=== PATIENT | male | born 1950 | race African-American/Black ===

== ENCOUNTER 2016-12-02 07:53 | Inpatient (IN) | payer OTHER ==
[2016-12-02 07:56] VITALS: BMI 27.0
--- NOTE | 2016-12-02 08:04 | PDOC ---
History of Present Illness <Damian Coreas - Last Filed: 12/02/16 10:29> - General History Source: Patient Exam Limitations: No Limitations - History of Present Illness Initial Comments: 12/02/16 08:05 The patient is a 66-year-old man, accompanied by , with a significant past medical history of hypertension and bladder Ca who presents to the emergency department via EMS for further evaluation of hematuria. He underwent a cystoscopy for in May- no chemotherapy/radiation since. He admits that he has been experiencing intermittent episodes of hematuria since August. His episodes are described as noted light pink urine without clots. However, over the past 3 weeks, he notes that his hematuria has worsen as it has become heavier,with noted dark urine and clots. He also notes that his symptoms are associated with headaches and lightheadedness and chills. He also notes that his lightheadedness is exacerbated on exertion (when walking). He denies fever, cough, shortness of breath , chest pain, palpitations, neck pain, leg pain, abdominal pain, nausea, vomiting, diarrhea, dysuria, flank pain, urinary hesitancy, urgency, frequency, penile discharge, testicular pain. He has a surgery scheduled for 12/04/[address] Harmon for tumor removal of his appendix and small bowel. Allergies: No Known Drug Allergies Past Surgical History: Cystoscopy- 05/31. 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 Social History: No tobacco, ETOH and recreational drug use. Primary Care Physician: Dr. Mehdi Alonso [phone] Sales And Service Technician: Dr. Roberto Patel [phone] Urologist: Dr. Kp Burks [phone] General Surgeon: Dr. Duy Harmon [phone] <Yani London - Last Filed: 12/02/16 11:30> - General Chief Complaint: Hematuria Stated Complaint: hematuria Time Seen by Provider: 12/02/16 08:00 Past History - Past Medical History Anemia: No Asthma: No Cancer: No Cardiac Disorders: No CVA: No COPD: No CHF: No Dementia: No Diabetes: No GI Disorders: No Disorders: No HTN: Yes Hypercholesterolemia: No Liver Disease: No Seizures: No Thyroid Disease: No - Surgical History Abdominal Surgery: No Appendectomy: No Cardiac Surgery: No Cholecystectomy: No Lung Surgery: No Neurologic Surgery: No Orthopedic Surgery: No - Psycho/Social/Smoking Cessation Hx Anxiety: No Suicidal Ideation: No Smoking History: Never smoked Have you smoked in the past 12 months: No Information on smoking cessation initiated: No Hx Alcohol Use: No Drug/Substance Use Hx: No Substance Use Type: None Hx Substance Use Treatment: No <Damian Coreas - Last Filed: 12/02/16 10:29> <Yain London - Last Filed: 12/02/16 11:30> - Past Medical History Allergies/Adverse Reactions: Allergies Allergy/AdvReac Type Severity Reaction Status Date / Time No Known Drug Allergies Allergy Verified 12/02/16 07:54 Home Medications: Ambulatory Orders Amlodipine Besylate/Benazepril [Lotrel 10-20 mg Capsule] 1 cap PO DAILY Review of Systems - Review of Systems Constitutional: Yes: Chills, Weight Stable. No: Fever HEENTM: No: Throat Pain Respiratory: No: Cough, Shortness of Breath Cardiac (ROS): Yes: Lightheadedness. No: Chest Pain, Edema, Syncope ABD/GI: No: Diarrhea, Vomiting : Yes: Hematuria All Other Systems: Reviewed and Negative <Damian Coreas - Last Filed: 12/02/16 10:29> *Physical Exam - Vital Signs Last Vital Signs Temp Pulse Resp BP Pulse Ox 98.4 F 102 H 20 147/83 100 12/02/16 07:54 12/02/16 07:54 12/02/16 07:54 12/02/16 07:54 12/02/16 07:54 <Damian Coreas - Last Filed: 12/02/16 10:29> - Vital Signs Last Vital Signs Temp Pulse Resp BP Pulse Ox 98.4 F 102 H 20 147/83 100 12/02/16 07:54 12/02/16 07:54 12/02/16 07:54 12/02/16 07:54 12/02/16 07:54 - Physical Exam Comments: 12/02/16 08:05 GENERAL: The patient is awake, alert, and fully oriented, in no acute distress. HEAD: Normal with no signs of trauma. EYES: Pupils equal, round and reactive to light, extraocular movements intact, sclera anicteric, + conjunctiva pallor ENT: Ears normal, nares patent, oropharynx clear without exudates. Moist mucous membranes. NECK: Normal range of motion, supple without lymphadenopathy, JVD, or masses. LUNGS: Breath sounds equal, clear to auscultation bilaterally. No wheeze/ crackles. HEART: Regular rate and rhythm, normal S1 and S2 without murmur or rub. ABDOMEN: Soft. Nontender. Slight bladder distention but no discomfort. BS wnl. No guarding or rebound. No palpable masses. No hepatosplenomegaly. EXTREMITIES: Normal range of motion, no edema. No clubbing or cyanosis. No cords, erythema, or tenderness. NEUROLOGICAL: Cranial nerves II through XII grossly intact. Normal speech. PSYCH: Normal mood, normal affect. SKIN: Warm, Dry, normal turgor, no rashes or lesions noted. <Yani London - Last Filed: 12/02/16 11:30> Heart Score/ECG Review #1 ECG reviewed & interpreted by me at: 08:39 General ECG Interpretation: Sinus Rhythm, Normal Rate (87), Normal Intervals ( qtc 440), No acute ischemic changes Compared to previous ECG there are: No significant change (07/30/09) <Damian Coreas - Last Filed: 12/02/16 10:29> ED Treatment Course - LABORATORY CBC & Chemistry Diagram: 12/02/16 08:22 12/02/16 08:22 <Damian Coreas - Last Filed: 12/02/16 10:29> - LABORATORY CBC & Chemistry Diagram: 12/02/16 08:22 12/02/16 08:22 <Yani London - Last Filed: 12/02/16 11:30> Medical Decision Making - Medical Decision Making 12/02/16 08:40 A portion of this note was documented by scribe services under my direction. I have reviewed the details of the note, within reason, and agree with the documentation with the following case summary and management plan written by me. 66-year-old male with history of bladder CA status post resection 05/31, appendiceal CA awaiting operative removal scheduled in 2 days, now presents with worsening gross hematuria over the last few weeks. Patient has had persistent mild hematuria since his surgery, has not had follow-up with his urologist, and comes in now with 2-3 weeks of gross hematuria with clots, frequency, incomplete emptying. Some chills over the last few days, also developing lightheadedness with standing and walking but no syncope or chest pain or shortness of breath. Vital signs as noted. Pale conjunctiva. Abdomen is benign, question slightly distended bladder No CVA tenderness 66-year-old male with known history of bladder CA presents with persistent and worsening gross hematuria, early signs of obstruction but does not appear to be in retention. Potentially anemic, causing his light-headedness, versus progression of underlying neoplasms. labs, ua ivf discuss with Drs. Bettencourt and Faustino 12/02/16 09:20 Severe anemia with hemoglobin of 4.7, creatinine is normal at 1.3, urinalysis with greater than 100 red and white blood cells, white blood cell count normal. Will begin transfusion, admit for further care. 12/02/16 10:29 Accepted for inpatient med/surg by Dr. Middleton. Dr. Mireles consulted. <Damian Coreas - Last Filed: 12/02/16 10:29> - Medical Decision Making 12/02/16 09:[address] Mehdi Alonso. Informed that Dr. Milly Middleton is covering and is inhouse. Overhead paged Dr. Middleton. 12/02/16 10:[address] Milly Middleton. Immediate response. Case was discussed. 12/02/16 10:[address] Kp Burks. <Yani London - Last Filed: 12/02/16 11:30> *DC/Admit/Observation/Transfer - Discharge Dispostion Admit: Yes <Damian Coreas - Last Filed: 12/02/16 10:29> - Attestations Scribe Attestion: 12/02/16 08:06 Documentation prepared by Yani London, acting as veterinary medical officer for Damian Coreas MD. <Yani London - Last Filed: 12/02/16 11:30> Diagnosis at time of Disposition: Gross hematuria Bladder cancer Qualifiers: Bladder location: unspecified site Qualified Code(s): C67.9 - Malignant neoplasm of bladder, unspecified Anemia Qualifiers: Anemia type: unspecified type Qualified Code(s): D64.9 - Anemia, unspecified - Discharge Dispostion Condition at time of disposition: Fair - Referrals
[2016-12-02 08:41] LABS: PH,URINE 6.5 (5.0-8.0); URINE APPEARANCE CLEAR; URINE BILIRUBIN NEGATIVE (NEGATIVE); URINE COLOR DK. RED; URINE GLUCOSE (UA) 2+ (NEGATIVE); URINE KETONE 1+ (NEGATIVE); URINE UROBILINOGEN >=8.0 E.U./dl E.U./dl (0.2-1.0)
[2016-12-02 08:47] LABS: BASOPHIL 0.7 % (0-2.0); EOSINOPHIL 0.1 % (0-4.5); MCH 24.4 pg (25.7-33.7); MCHC 33.5 g/dl (32.0-35.9); MEAN CELL VOLUME 72.8 fl (80-96); MEAN PLT VOLUME 6.8 fl (7.5-11.1); NEUTROPHILS 66.8 % (42.8-82.8); PLATELET COUNT 330 K/MM3 (134-434); RDW 18.1 % (11.9-15.9); WHITE BLOOD COUNT 8.7 K/mm3 (4.0-10.0)
[2016-12-02 09:03] LABS: URINE BLOOD 3+ (NEGATIVE); URINE LEUK ESTERASE 2+ (NEGATIVE); URINE NITRITE POSITIVE (NEGATIVE); URINE PROTEIN 3+ (NEGATIVE)
[2016-12-02 09:04] LABS: GRANULAR CASTS FEW /lpf; URINE RBC >100 /hpf (0-3); URINE WBC >100 /hpf (3-5)
[2016-12-02 09:07] LABS: ALBUMIN 3.5 g/dl (3.4-5.0); BILIRUBIN,TOTAL 0.2 mg/dL (0.2-1.0); COCKROFT - GAULT 74.5; CREATININE 1.3 mg/dL (0.7-1.3); TOT PROT 6.3 g/dl (6.4-8.2)
[2016-12-02 09:43] LABS: INR 0.98 (0.82-1.09); PROTHROMBIN TIME (PATIENT) 10.8 SEC (9.98-11.88)
--- NOTE | 2016-12-02 10:26 | HP ---
Admitting History and Physical - Primary Care Physician PCP: Mehdi Alonso - Admission Chief Complaint: hematuria History of Present Illness: ER HISTORY - History of Present Illness Initial Comments: 12/02/16 08:05 The patient is a 66-year-old man, accompanied by , with a significant past medical history of hypertension and bladder Ca who presents to the emergency department via EMS for further evaluation of hematuria. He underwent a cystoscopy for in May- no chemotherapy/radiation since. He admits that he has been experiencing intermittent episodes of hematuria since August. His episodes are described as noted light pink urine without clots. However, over the past 3 weeks, he notes that his hematuria has worsen as it has become heavier,with noted dark urine and clots. He also notes that his symptoms are associated with headaches and lightheadedness and chills. He also notes that his lightheadedness is exacerbated on exertion (when walking). He denies fever, cough, shortness of breath , chest pain, palpitations, neck pain, leg pain, abdominal pain, nausea, vomiting, diarrhea, dysuria, flank pain, urinary hesitancy, urgency, frequency, penile discharge, testicular pain. He has a surgery scheduled for 12/04/[address] Harmon for tumor removal of his appendix and small bowel. Allergies: No Known Drug Allergies Past Surgical History: Cystoscopy- 05/31. 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 Social History: No tobacco, ETOH and recreational drug use. Primary Care Physician: Dr. Mehdi Alonso [phone] Cement Mixer Driver: Dr. Roberto Patel [phone] Urologist: Dr. Kp Burks [phone] General Surgeon: Dr. Duy Harmon [phone] PT SEEN BY ME IN ER He has been having gross hematuria for about 2 weeks now and did not inform his urologist as he was busy getting pre- operative testing and CT scans for appendiceal CA which was discovered recently. He was scheduled for surgery the end of this week with Dr Harmon. Pt came to ER today morning feeling dizzy and had palpitations.He denies ASA or NSAIDS His says that he has been passing clots in the urine, denies any abdominal pain . History Source: Patient, Family Member Limitations to Obtaining History: No Limitations - Past Medical History Cardiovascular: Yes: HTN Gastrointestinal: Yes: Other (high grade dysplasia appendix) Renal/: Yes: BPH, Cancer, Hematuria - Smoking History Smoking history: Never smoked Have you smoked in the past 12 months: No - Alcohol/Substance Use Hx Alcohol Use: No Home Medications - Allergies Allergies/Adverse Reactions: Allergies Allergy/AdvReac Type Severity Reaction Status Date / Time No Known Drug Allergies Allergy Verified 12/02/16 07:54 - Home Medications Home Medications: Ambulatory Orders Amlodipine Besylate/Benazepril [Lotrel 10-20 mg Capsule] 1 cap PO DAILY Review of Systems - Review of Systems Constitutional: reports: Weakness. denies: Chills, Fever, Loss of Appetite Cardiovascular: reports: Palpitations, Shortness of Breath. denies: Chest Pain Genitourinary: reports: Hematuria. denies: Burning, Discharge, Frequency Physical Examination Vital Signs: Vital Signs Temperature 98.4 F 12/02/16 07:54 Pulse Rate 102 H 12/02/16 07:54 Respiratory Rate 20 12/02/16 07:54 Blood Pressure 147/83 12/02/16 07:54 O2 Sat by Pulse Oximetry (%) 100 12/02/16 07:54 Constitutional: Yes: No Distress, Calm, Pallor Cardiovascular: Yes: Regular Rate and Rhythm, Tachycardia Respiratory: Yes: CTA Bilaterally Gastrointestinal: Yes: Normal Bowel Sounds, Soft, Abdomen, Obese. No: Distention, Tenderness Edema: No Psychiatric: Yes: WNL Labs: CBC, BMP 12/02/16 08:22 12/02/16 08:22 Imaging - Results EKG: Report Reviewed (NSR) Problem List - Problems (1) Anemia Code(s): D64.9 - ANEMIA, UNSPECIFIED Qualifiers: Anemia type: unspecified type Qualified Code(s): D64.9 - Anemia, unspecified (2) Bladder cancer Code(s): C67.9 - MALIGNANT NEOPLASM OF BLADDER, UNSPECIFIED Qualifiers: Bladder location: unspecified site Qualified Code(s): C67.9 - Malignant neoplasm of bladder, unspecified (3) Gross hematuria Code(s): R31.0 - GROSS HEMATURIA (4) HTN (hypertension) Code(s): I10 - ESSENTIAL (PRIMARY) HYPERTENSION (5) Hematuria Code(s): R31.9 - HEMATURIA, UNSPECIFIED Assessment/Plan PLAN -- pt refusing del valle or CBI -- transfuse PRBC -- hold BP meds -- Urology and Surgery evaluation -- repeat CBC today after transfusion -- monitor vitals and CBC -- gentle iv fluids
[2016-12-02 11:26] LABS: HYPOCHROMIA 3+; MICROCYTOSIS 2+; POLYCHROMASIA 2+; TARGET CELLS 1+
--- NOTE | 2016-12-02 13:18 | EKG ---
Test Reason : Blood Pressure : / mmHG Vent. Rate : 087 BPM Atrial Rate : 087 BPM P-R Int : 154 ms QRS Dur : 106 ms QT Int : 366 ms P-R-T Axes : 067 056 057 degrees QTc Int : 440 ms NORMAL SINUS RHYTHM NORMAL ECG WHEN COMPARED WITH ECG OF 30-JUL-2009 08:47, T WAVE INVERSION NO LONGER EVIDENT IN LATERAL LEADS Confirmed by ANTON VALVERDE, JOSEPH ([id number]) on 12/02/2016 1:17:53 PM Referred By: Confirmed By:JOSEPH WALTON MD
[2016-12-02] MEDS: SODIUM CHLORIDE 1,000 ML IV SCH ×2 (17:12→21:39)
[2016-12-03 00:03] LABS: MCH 25.7 pg (25.7-33.7); MCHC 33.9 g/dl (32.0-35.9); MEAN CELL VOLUME 75.7 fl (80-96); MEAN PLT VOLUME 7.3 fl (7.5-11.1); PLATELET COUNT 314 K/MM3 (134-434); RDW 17.9 % (11.9-15.9); WHITE BLOOD COUNT 12.5 K/mm3 (4.0-10.0)
[2016-12-03 08:53] LABS: MCH 26.7 pg (25.7-33.7); MCHC 34.7 g/dl (32.0-35.9); MEAN PLT VOLUME 7.1 fl (7.5-11.1); PLATELET COUNT 288 K/MM3 (134-434)
--- NOTE | 2016-12-03 09:34 | CON.GU ---
Consult - History of Present Illness History of Present Illness: 66 yo male with h/o bladder CA, s/p TURBT in May 2016, never followed up with Dr Burks thereafter. Now admitted with worsening gross heme with clots and anemia. No fever, chills, or flank pain - Past Medical History Cardio/Vascular: Yes: HTN Gastrointestinal: Yes: Other (high grade dysplasia appendix) Renal/: Yes: BPH, Cancer, Hematuria - Alcohol/Substance Use Hx Alcohol Use: No - Smoking History Smoking history: Never smoked Have you smoked in the past 12 months: No Home Medications - Allergies Allergies/Adverse Reactions: Allergies Allergy/AdvReac Type Severity Reaction Status Date / Time No Known Drug Allergies Allergy Verified 12/02/16 07:54 - Home Medications Home Medications: Ambulatory Orders Amlodipine Besylate/Benazepril [Lotrel 10-20 mg Capsule] 1 cap PO DAILY Physical Exam- Vital Signs: Vital Signs Temperature 98.1 F 12/03/16 08:21 Pulse Rate 80 12/03/16 08:21 Respiratory Rate 18 12/03/16 08:21 Blood Pressure 132/71 12/03/16 08:21 O2 Sat by Pulse Oximetry (%) 100 12/03/16 08:32 Renal/: Yes: Hematuria, . No: Bladder Distention, CVA Tenderness - Left, CVA Tenderness - Right, Menses Present, Scrotal Edema, Urethral Discharge , Other Labs: CBC, BMP 12/03/16 07:50 Problem List - Problems (1) Bladder cancer Assessment/Plan: plan for CT scan today. please transfuse as needed to increase HCT, will need cystoscopy/TURBT/fulguration once medically cleared Code(s): C67.9 - MALIGNANT NEOPLASM OF BLADDER, UNSPECIFIED Qualifiers: Bladder location: unspecified site Qualified Code(s): C67.9 - Malignant neoplasm of bladder, unspecified (2) Gross hematuria Code(s): R31.0 - GROSS HEMATURIA
--- NOTE | 2016-12-03 10:53 | PN ---
Progress Note, Physician Chief Complaint: has hematuria- passed a few clots this morning- but he feels better Denies lightheadedness and palpitations No abd pain s/p 3 PRBC - Current Medication List Current Medications: Active Medications Sodium Chloride (Normal Saline -) 1,000 mls @ 75 mls/hr IV ASDIR JAKE Last Admin: 12/02/16 21:39 Dose: 75 mls/hr - Objective Vital Signs: Vital Signs Temperature 98.1 F 12/03/16 08:21 Pulse Rate 80 12/03/16 08:21 Respiratory Rate 18 12/03/16 08:21 Blood Pressure 132/71 12/03/16 08:21 O2 Sat by Pulse Oximetry (%) 100 12/03/16 08:32 Constitutional: Yes: No Distress, Calm, Pallor Cardiovascular: Yes: Regular Rate and Rhythm Respiratory: Yes: CTA Bilaterally Gastrointestinal: Yes: Normal Bowel Sounds, Soft. No: Distention, Tenderness Edema: No Labs: CBC, BMP 12/03/16 07:50 INR, PTT INR 0.98 (0.82-1.09) 12/02/16 08:22 Problem List - Problems (1) Anemia Code(s): D64.9 - ANEMIA, UNSPECIFIED Qualifiers: Anemia type: iron deficiency Qualified Code(s): D64.9 - Anemia, unspecified (2) Bladder cancer Code(s): C67.9 - MALIGNANT NEOPLASM OF BLADDER, UNSPECIFIED Qualifiers: Bladder location: unspecified site Qualified Code(s): C67.9 - Malignant neoplasm of bladder, unspecified (3) Gross hematuria Code(s): R31.0 - GROSS HEMATURIA (4) HTN (hypertension) Code(s): I10 - ESSENTIAL (PRIMARY) HYPERTENSION (5) Hematuria Code(s): R31.9 - HEMATURIA, UNSPECIFIED Assessment/Plan PLAN -- pt refusing del valle or CBI -- transfuse PRBC 2 more today after he goes for CTscan -- holding BP meds -- Urology evaluation noted -- for CT abd/pelvis today -- monitor vitals and CBC -- spoke with DR Harmon-- he will be seeing the pt today. May need to postpone surgery for appendix tomorrow -- I have requested him if it is possible to have both and surgical procedures done in same day -- DVT prophylaxis-- SCD
--- NOTE | 2016-12-03 15:01 | CONSULT ---
Consult Consult Specialty:: Surgery Referred by:: Kane Atkins Reason for Consultation:: Tumor in appendix - History of Present Illness Chief Complaint: Patient is known to have a mass at the appendicular orifice , with atypia. He is scheduled fot palaproscopic right hemicolectomy tomorrow. He is admitted today with progressive hematuria, and multiple bladder tumors. History of Present Illness: Admitted with gross hematuria and anemia, secondary to blood loss. - History Source History Provided By: Patient - Past Medical History Cardio/Vascular: Yes: HTN Gastrointestinal: Yes: Other (high grade dysplasia appendix) Renal/: Yes: BPH, Cancer, Hematuria - Alcohol/Substance Use Hx Alcohol Use: No - Smoking History Smoking history: Never smoked Have you smoked in the past 12 months: No Home Medications - Allergies Allergies/Adverse Reactions: Allergies Allergy/AdvReac Type Severity Reaction Status Date / Time No Known Drug Allergies Allergy Verified 12/02/16 07:54 - Home Medications Home Medications: Ambulatory Orders Amlodipine Besylate/Benazepril [Lotrel 10-20 mg Capsule] 1 cap PO DAILY Physical Exam Vital Signs: Vital Signs Temperature 98.1 F 12/03/16 12:50 Pulse Rate 84 12/03/16 12:50 Respiratory Rate 18 12/03/16 12:50 Blood Pressure 146/80 12/03/16 12:50 O2 Sat by Pulse Oximetry (%) 100 12/03/16 08:32 Labs: CBC, BMP 12/03/16 07:50 Imaging - Results Cat Scan: Report Reviewed, Image Reviewed Problem List - Problems (1) Hematuria Code(s): R31.9 - HEMATURIA, UNSPECIFIED (2) Bladder cancer Code(s): C67.9 - MALIGNANT NEOPLASM OF BLADDER, UNSPECIFIED Qualifiers: Bladder location: overlapping sites Qualified Code(s): C67.8 - Malignant neoplasm of overlapping sites of bladder (3) 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 Dr Masterson plans to do cystoscopy tomorrow, as well. Correct hemoglobin , hematocrit.
[2016-12-04] MEDS: SODIUM CHLORIDE 1,000 ML IV SCH (01:03)
[2016-12-04 07:26] LABS: MCH 27.4 pg (25.7-33.7); MCHC 34.4 g/dl (32.0-35.9); MEAN CELL VOLUME 79.4 fl (80-96); PLATELET COUNT 263 K/MM3 (134-434); RDW 17.8 % (11.9-15.9); WHITE BLOOD COUNT 8.7 K/mm3 (4.0-10.0)
[2016-12-04 07:58] LABS: ANION GAP 10 (8-16); CALCIUM 8.5 mg/dL (8.5-10.1); CO2 24 mmol/L (21-32); GLUCOSE,RANDOM 118 mg/dL (74-106); SGOT/AST 10 U/L (15-37); SGPT/ALT 23 U/L (12-78)
[2016-12-04 08:00] LABS: ALK PHOS 50 U/L (45-117); BILIRUBIN,TOTAL 0.6 mg/dL (0.2-1.0); COCKROFT - GAULT 88.05; CREATININE 1.1 mg/dL (0.7-1.3); TOT PROT 5.5 g/dl (6.4-8.2)
--- NOTE | 2016-12-04 08:29 | PN ---
Progress Note (short form) - Note Progress Note: SUBJECTIVE: Patient seen and examined. Chart reviewed. Patient is anxious about upcoming surgery today. Family at bedside. Denies chest pain or shortness of breath. Continue to have walter hematuria. OBJECTIVE: Vital Signs - 8 hr 12/04/16 05:35 Temperature 98.9 F Pulse Rate 78 Respiratory 20 Rate Blood Pressure 131/80 Intake & Output 12/03/16 12/04/16 12/04/16 23:59 07:59 15:59 Intake Total 850 Output Total 400 850 Balance -400 0 Intake: IV 400 Normal Saline - 1,000 ml 400 @ 75 mls/hr IV ASDIR JAKE Rx#:[id number] IVPB 100 Packed Cells 350 Output: Urine 400 850 Void 400 850 Other: Voiding Method Urinal Urinal # Unmeasured Voids Void 1 Bowel Movement Yes # Bowel Movements 1 Active Medications Sodium Chloride (Normal Saline -) 1,000 mls @ 75 mls/hr IV ASDIR JAKE Last Admin: 12/04/16 01:03 Dose: 75 mls/hr CBC, BMP 12/04/16 06:15 12/04/16 06:15 Laboratory Results - last 24 hr 12/02/16 12/04/16 12/04/16 08:22 06:15 06:15 WBC 8.7 RBC 3.09 L Hgb 8.5 L D Hct 24.5 L D MCV 79.4 L MCHC 34.4 RDW 17.8 H Plt Count 263 MPV 7.0 L Sodium 140 Potassium 4.0 Chloride 106 Carbon Dioxide 24 Anion Gap 10 BUN 12 Creatinine 1.1 Creat Clearance w eGFR > 60 Random Glucose 118 H D Calcium 8.5 Total Bilirubin 0.6 D AST 10 L D ALT 23 Alkaline Phosphatase 50 Total Protein 5.5 L Albumin 3.0 L Blood Type O POSITIVE Antibody Screen Negative Crossmatch See Detail Microbiology 12/02/16 08:22 Urine Culture - Final Urine - Urine Clean Catch NO GROWTH OBTAINED PHYSICAL EXAMINATION: Constitutional: Yes: No Distress, Anxious. Cardiovascular: Yes: Regular Rate and Rhythm Respiratory: Yes: CTA Bilaterally Gastrointestinal: Yes: Normal Bowel Sounds, Soft. No: Distention, Tenderness Edema: No ASSESSMENT & PLAN: - Scheduled for OR today as mentioned above. - Will transfuse another unit. - CT scan noted. - I had an extensive talk with the patient today about the upcoming surgery-- Both cystoscopy as well as right hemicolectomy - Patient agreeable but reluctant. - Patient says he is going to talk with the Surgeons again. - I spoke wit Dr. Mireles as well as with Dr. Harmon also this morning. - All above discussed with nursing staff also. - Patient is medically stable for the proposed procedure. - Will follow. Documentation prepared by Yani London, acting as a medical office supervisor for Mehdi Alonso MD.
[2016-12-04] MEDS ORDERED: ACETAMINOPHEN INJECTION 0 ML IVPB ONE (11:28)
--- NOTE | 2016-12-04 16:50 | PN ---
Progress Note, Physician - Current Medication List Current Medications: Active Medications Sodium Chloride (Normal Saline -) 1,000 mls @ 75 mls/hr IV ASDIR JAKE Last Admin: 12/04/16 01:03 Dose: 75 mls/hr - Objective Vital Signs: Vital Signs Temperature 98.3 F 12/04/16 14:32 Pulse Rate 83 12/04/16 14:32 Respiratory Rate 20 12/04/16 14:32 Blood Pressure 161/93 12/04/16 14:32 O2 Sat by Pulse Oximetry (%) 99 12/03/16 21:00 Labs: CBC, BMP 12/04/16 06:15 12/04/16 06:15 INR, PTT INR 0.98 (0.82-1.09) 12/02/16 08:22 Problem List - Problems (1) Hematuria Code(s): R31.9 - HEMATURIA, UNSPECIFIED (2) Bladder cancer Code(s): C67.9 - MALIGNANT NEOPLASM OF BLADDER, UNSPECIFIED Qualifiers: Bladder location: overlapping sites Qualified Code(s): C67.8 - Malignant neoplasm of overlapping sites of bladder (3) 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 Hematocrit is 24, He now wants to have his bladder tumor treated first and then will call my office for removal of his appendiceal tumor. I will schedule him later.
--- NOTE | 2016-12-04 17:25 | PN ---
Progress Note (short form) - Note Progress Note: Patient was scheduled for cystoscopy and bladder tumor resection. CT scan reveals recurrent bladder tumors. Patient refused today, ate lunch, He is rescheduled for 12/07/16
[2016-12-04] MEDS: LISINOPRIL 20 MG TABLET (FP) PO SCH (19:52)
[2016-12-04] MEDS: amLODIPine BESYLATE 10 MG TABLET (FP) PO SCH (19:52)
[2016-12-05] MEDS: amLODIPine BESYLATE 10 MG TABLET (FP) PO SCH (09:44)
[2016-12-05] MEDS: LISINOPRIL 20 MG TABLET (FP) PO SCH (09:44)
--- NOTE | 2016-12-05 11:40 | PN ---
Progress Note (short form) - Note Progress Note: events noted pt refused cystoscopy as well as hemicolectomy yesterday Dont want hemicolectomy now willing so far for cystoscopy on wednesday denies pain passing walter blood in urine Vital Signs Temp 98.1 F 12/05/16 06:00 Pulse 77 12/05/16 06:00 Resp 20 12/05/16 06:00 BP 100/65 12/05/16 06:00 Pulse Ox 99 12/04/16 09:00 Intake & Output 12/04/16 12/04/16 12/05/16 11:59 23:59 11:59 Intake Total 850 450 200 Output Total 850 1400 1500 Balance 0 -950 -1300 Intake: IV 400 Normal Saline - 1,000 ml 400 @ 75 mls/hr IV ASDIR [facility] Rx#:[id number] IVPB 100 100 Oral 200 Packed Cells 350 350 Output: Urine 850 1400 1500 Void 850 1400 1500 Other: Voiding Method Urinal Urinal Urinal # Unmeasured Voids Void 1 1 Bowel Movement Yes No # Bowel Movements 1 Active Medications Amlodipine Besylate (Norvasc -) 10 mg PO DAILY [facility] Last Admin: 12/05/16 09:44 Dose: 10 mg Lisinopril (Prinivil) 20 mg PO DAILY [facility] Last Admin: 12/05/16 09:44 Dose: 20 mg PHYSICAL EXAMINATION: Constitutional: Yes: No Distress,comfortable Cardiovascular: Yes: Regular Rate and Rhythm Respiratory: Yes: CTA Bilaterally Gastrointestinal: Yes: Normal Bowel Sounds, Soft. No: Distention, Tenderness Edema: No ASSESSMENT & PLAN: Overall stable Problems as listed transfuse prn check labs today and daily will follow
[2016-12-05 12:50] LABS: BASOPHIL 0.9 % (0-2.0); EOSINOPHIL 1.1 % (0-4.5); MCH 27.2 pg (25.7-33.7); MEAN CELL VOLUME 79.8 fl (80-96); MEAN PLT VOLUME 6.9 fl (7.5-11.1); NEUTROPHILS 55.3 % (42.8-82.8); PLATELET COUNT 270 K/MM3 (134-434); RDW 18.1 % (11.9-15.9); WHITE BLOOD COUNT 8.2 K/mm3 (4.0-10.0)
[2016-12-05 14:02] LABS: CALCIUM 8.8 mg/dL (8.5-10.1); COCKROFT - GAULT 96.86
[2016-12-06] MEDS: amLODIPine BESYLATE 10 MG TABLET (FP) PO SCH (09:39)
[2016-12-06] MEDS: LISINOPRIL 20 MG TABLET (FP) PO SCH (09:39)
--- NOTE | 2016-12-06 10:02 | PN ---
Progress Note (short form) - Note Progress Note: Comfortable no complains feels well welling to undergo cystoscopy tomorrow so far denies cp/ sob. Vital Signs Temp 98.3 F 12/06/16 05:38 Pulse 73 12/06/16 05:38 Resp 18 12/06/16 05:38 BP 119/69 12/06/16 05:38 Pulse Ox 100 12/05/16 21:00 Intake & Output 12/05/16 12/05/16 12/06/16 11:59 23:59 11:59 Intake Total 200 850 250 Output Total 1600 1200 700 Balance -1400 -350 -450 Intake: IV 400 Normal Saline - 1,000 ml 400 @ 75 mls/hr IV ASDIR JAKE Rx#:[id number] Oral 200 450 250 Output: Urine 1600 1200 700 Void 1600 1200 700 Other: Voiding Method Urinal Urinal Urinal # Unmeasured Voids Void 1 3 Bowel Movement No Yes No # Bowel Movements 1 1 Active Medications Amlodipine Besylate (Norvasc -) 10 mg PO DAILY [facility] Last Admin: 12/06/16 09:39 Dose: 10 mg Lisinopril (Prinivil) 20 mg PO DAILY [facility] Last Admin: 12/06/16 09:39 Dose: 20 mg CBC, BMP 12/05/16 12:47 12/05/16 12:47 PHYSICAL EXAMINATION: Constitutional: Yes: No Distress,comfortable Cardiovascular: Yes: Regular Rate and Rhythm Respiratory: Yes: CTA Bilaterally Gastrointestinal: Yes: Normal Bowel Sounds, Soft. 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
[2016-12-06 12:18] LABS: BASOPHIL 0.6 % (0-2.0); EOSINOPHIL 0.8 % (0-4.5); MCH 27.6 pg (25.7-33.7); MEAN PLT VOLUME 7.2 fl (7.5-11.1); NEUTROPHILS 60.4 % (42.8-82.8); PLATELET COUNT 254 K/MM3 (134-434); RDW 18.2 % (11.9-15.9); WHITE BLOOD COUNT 8.5 K/mm3 (4.0-10.0)
[2016-12-06 12:39] LABS: CALCIUM 8.2 mg/dL (8.5-10.1); COCKROFT - GAULT 88.05; CREATININE 1.1 mg/dL (0.7-1.3)
[2016-12-07] MEDS ORDERED: D5-1/2NS+20 MEQ KCL - 1,000 ML IV SCH (07:00)
--- NOTE | 2016-12-07 09:27 | PN ---
Progress Note (short form) - Note Progress Note: Subjective Patient seen and examined. Getting anxious about procedure today-- cystoscopy. Otherwise feels OK Denies chest pain or SOB or abdominal pain. Family at bed side. Objective Last Vital Signs Temp Pulse Resp BP Pulse Ox 98.3 F 86 20 109/64 100 12/07/16 06:00 12/07/16 06:00 12/07/16 09:00 12/07/16 06:00 12/07/16 09:00 CBC, BMP 12/06/16 11:50 12/06/16 11:50 Laboratory Results - last 24 hr 12/02/16 12/06/16 12/06/16 08:22 11:50 11:50 WBC 8.5 RBC 3.36 L Hgb 9.3 L Hct 27.3 L MCV 81.0 MCHC 34.0 RDW 18.2 H Plt Count 254 MPV 7.2 L Neutrophils % 60.4 Lymphocytes % 29.0 Monocytes % 9.2 Eosinophils % 0.8 Basophils % 0.6 Sodium 138 Potassium 4.1 Chloride 107 Carbon Dioxide 22 Anion Gap 9 BUN 13 Creatinine 1.1 Random Glucose 139 H Calcium 8.2 L Blood Type O POSITIVE Antibody Screen Negative Crossmatch See Detail Physical Exam Constitutional: Yes: No Distress,comfortable Cardiovascular: Yes: Regular Rate and Rhythm Respiratory: Yes: CTA Bilaterally Gastrointestinal: Yes: Normal Bowel Sounds, Soft. No: Distention, Tenderness Edema: No Assessment and Plan Overall stable Problems as listed transfuse prn medically stable for cystoscopy today Will follow. Documentation prepared by Esha Fregoso, acting as a medical clerk for Mehdi Alonso MD. 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
[2016-12-07] MEDS: amLODIPine BESYLATE 10 MG TABLET (FP) PO SCH (10:45)
[2016-12-07] MEDS: LISINOPRIL 20 MG TABLET (FP) PO SCH (10:50)
[2016-12-07] MEDS ORDERED: MIDAZOLAM HCL 2 MG/2 ML SINGLE DOSE VIAL ONE (13:26)
[2016-12-07] MEDS ORDERED: DEXAMETHASONE SOD PHOSPHATE 4 MG/1 ML VIAL ONE (13:26)
[2016-12-07] MEDS ORDERED: ceFAZolin SODIUM 1 GM VIAL IVPB ONE (13:40)
[2016-12-07] MEDS ORDERED: ceFAZolin SODIUM 1 GM VIAL ONE (13:43)
[2016-12-07] MEDS ORDERED: ONDANSETRON 4 MG/2 ML VIAL IVPUSH PRN ×2 (14:18→14:42)
[2016-12-07] MEDS ORDERED: LACTATED RINGERS SOLUTION 1,000 ML IV SCH ×2 (14:30→14:42)
[2016-12-07] MEDS ORDERED: HYDROmorphone HCL CARPU-JECT 2 MG/1 ML DISP.SYRIN ONE (15:20)
[2016-12-07] MEDS: HYDROmorphone HCL CARPU-JECT 2 MG/1 ML DISP.SYRIN IVPB PRN ×2 (15:30→21:41)
--- NOTE | 2016-12-07 20:49 | OP ---
DATE OF OPERATION: 12/07/2016 PREOPERATIVE DIAGNOSIS: Bladder cancer. POSTOPERATIVE DIAGNOSIS: Bladder cancer. PROCEDURE: Cystoscopy, transurethral resection of bladder tumor. ANESTHESIA: General. FINDINGS: Multiple tumors throughout the bladder, 2 large ones as well. ESTIMATED BLOOD LOSS: 50 mL. SPECIMEN: Bladder tumors. DRAINS: Mendez catheter. PREOPERATIVE INDICATIONS: The patient is a 66-year-old male with a history of noninvasive bladder cancer, who has been noncompliant with visitation to the office. He reports that he has been bleeding for about 3 to 4 months. He comes to the hospital with a significant anemia. CT scan reveals multiple recurrent bladder tumors in the bladder. He was stabilized and now comes to the OR. OPERATION: The patient was brought to the OR, placed on the table in the supine position, given general anesthesia and IV antibiotics and placed in the modified lithotomy position. The groin was prepped and draped sterilely. Cystoscopy was performed. The urethra appeared to be normal. The prostate itself was also normal. There was a large tumor coming down anteriorly at the bladder neck. This was resected. There were multiple tumors throughout. The majority of them were fulgurated. The larger ones were resected. There was a large one as well on the left side which was resected. Good hemostasis was maintained. The specimens were irrigated out, sent for pathological diagnosis. A 3-way Mendez catheter was left in place for postoperative irrigation and drainage. The patient was woken up. WILLIE CAVANAUGH M.D. [id number]
[2016-12-08] MEDS: D5-1/2NS+20 MEQ KCL - 1,000 ML IV SCH ×3 (02:16→23:10)
[2016-12-08 07:33] LABS: BASOPHIL 0.4 % (0-2.0); MCH 26.6 pg (25.7-33.7); MCHC 32.8 g/dl (32.0-35.9); MEAN CELL VOLUME 81.1 fl (80-96); MEAN PLT VOLUME 7.2 fl (7.5-11.1); NEUTROPHILS 78.3 % (42.8-82.8); PLATELET COUNT 233 K/MM3 (134-434); RDW 17.7 % (11.9-15.9); WHITE BLOOD COUNT 14.4 K/mm3 (4.0-10.0)
[2016-12-08 08:07] LABS: ALBUMIN 2.9 g/dl (3.4-5.0); ALK PHOS 43 U/L (45-117); ANION GAP 9 (8-16); BILIRUBIN,TOTAL 0.6 mg/dL (0.2-1.0); CALCIUM 8.5 mg/dL (8.5-10.1); CO2 25 mmol/L (21-32); COCKROFT - GAULT 96.86; GLUCOSE,RANDOM 142 mg/dL (74-106); SGOT/AST 9 U/L (15-37); SGPT/ALT 17 U/L (12-78); TOT PROT 5.6 g/dl (6.4-8.2)
--- NOTE | 2016-12-08 08:09 | PN ---
Progress Note (short form) - Note Progress Note: Post op day#1.S/P Cystoscopy with TURBT uder GA uneventful.Patient stable.No any anesthesia related problem.Patient DC from the anesthesia care.
[2016-12-08] MEDS: HYDROmorphone HCL CARPU-JECT 2 MG/1 ML DISP.SYRIN IVPB PRN ×2 (08:23→15:29)
--- NOTE | 2016-12-08 09:34 | PN ---
Progress Note (short form) - Note Progress Note: S/P TURBT CBI is clear this morning, abdomen is soft. Hct 24% Imp- S/P TURBT cont CBI one more day,
[2016-12-08] MEDS: amLODIPine BESYLATE 10 MG TABLET (FP) PO SCH (10:09)
[2016-12-08] MEDS: LISINOPRIL 20 MG TABLET (FP) PO SCH (10:09)
--- NOTE | 2016-12-08 12:04 | PN ---
Progress Note, Physician Chief Complaint: on CBI No distress Feels well - Current Medication List Current Medications: Active Medications Amlodipine Besylate (Norvasc -) 10 mg PO DAILY [facility] Last Admin: 12/08/16 10:09 Dose: 10 mg Fentanyl (Sublimaze Injection -) 50 mcg IVPUSH [id number] PRN PRN Reason: PAIN Stop: 12/10/16 14:19 Last Admin: 12/07/16 15:15 Dose: 50 mcg Hydromorphone HCl (Dilaudid Injection -) 2 mg IVPB Q6H PRN PRN Reason: PAIN Last Admin: 12/08/16 08:23 Dose: 2 mg Potassium Chloride/Dextrose/Sod Cl (D5-1/2ns+20 Meq Kcl -) 1,000 mls @ 100 mls/ hr IV ASDIR [facility] Last Admin: 12/08/16 02:16 Dose: 100 mls/hr Lisinopril (Prinivil) 20 mg PO DAILY [facility] Last Admin: 12/08/16 10:09 Dose: 20 mg - Objective Vital Signs: Vital Signs Temperature 98.2 F 12/08/16 08:34 Pulse Rate 88 12/08/16 08:34 Respiratory Rate 20 12/08/16 08:34 Blood Pressure 151/75 12/08/16 08:34 O2 Sat by Pulse Oximetry (%) 100 12/08/16 08:35 Constitutional: Yes: No Distress Cardiovascular: Yes: Regular Rate and Rhythm Respiratory: Yes: CTA Bilaterally Gastrointestinal: Yes: Normal Bowel Sounds, Soft. No: Distention, Tenderness Edema: No Labs: CBC, BMP 12/08/16 06:00 12/08/16 06:00 INR, PTT INR 0.98 (0.82-1.09) 12/02/16 08:22 Problem List - Problems (1) Anemia Code(s): D64.9 - ANEMIA, UNSPECIFIED Qualifiers: Anemia type: iron deficiency (2) Bladder cancer Code(s): C67.9 - MALIGNANT NEOPLASM OF BLADDER, UNSPECIFIED Qualifiers: Bladder location: overlapping sites Qualified Code(s): C67.8 - Malignant neoplasm of overlapping sites of bladder (3) Gross hematuria Code(s): R31.0 - GROSS HEMATURIA (4) HTN (hypertension) Code(s): I10 - ESSENTIAL (PRIMARY) HYPERTENSION (5) Hematuria Code(s): R31.9 - HEMATURIA, UNSPECIFIED Assessment/Plan PLAN --on CBI -s/p TURBT and cystoscopy Monitor H/HCT continue with meds Pt would like to postpone surgery for appendix mass- he spoke with Dr Harmon already - he would like the hematuria to be resolved prior to any further surgery dvt prophylaxis-- SCD
[2016-12-08] MEDS ORDERED: ONDANSETRON 4 MG/2 ML VIAL IVPB PRN (19:12)
[2016-12-09] MEDS: HYDROmorphone HCL CARPU-JECT 2 MG/1 ML DISP.SYRIN IVPB PRN (05:36)
[2016-12-09 07:42] LABS: MCH 26.2 pg (25.7-33.7); MCHC 32.4 g/dl (32.0-35.9); MEAN CELL VOLUME 80.7 fl (80-96); MEAN PLT VOLUME 7.3 fl (7.5-11.1); PLATELET COUNT 241 K/MM3 (134-434); WHITE BLOOD COUNT 14.3 K/mm3 (4.0-10.0)
--- NOTE | 2016-12-09 09:36 | PN ---
Progress Note (short form) - Note Progress Note: Afebrile VSS c/o headache abdomen soft CBI clear Imp- S/P TURBT trial of void
[2016-12-09] MEDS: LISINOPRIL 20 MG TABLET (FP) PO SCH (11:01)
[2016-12-09] MEDS: amLODIPine BESYLATE 10 MG TABLET (FP) PO SCH (11:01)
--- NOTE | 2016-12-09 11:31 | PN ---
Progress Note, Physician Chief Complaint: CBI discontinued today by has increased frequency of urination no abd pain - Current Medication List Current Medications: Active Medications Amlodipine Besylate (Norvasc -) 10 mg PO DAILY [facility] Last Admin: 12/09/16 11:01 Dose: 10 mg Fentanyl (Sublimaze Injection -) 50 mcg IVPUSH [id number] PRN PRN Reason: PAIN Stop: 12/10/16 14:19 Last Admin: 12/07/16 15:15 Dose: 50 mcg Hydromorphone HCl (Dilaudid Injection -) 2 mg IVPB Q6H PRN PRN Reason: PAIN Last Admin: 12/09/16 05:36 Dose: 2 mg Potassium Chloride/Dextrose/Sod Cl (D5-1/2ns+20 Meq Kcl -) 1,000 mls @ 100 mls/ hr IV ASDIR [facility] Last Admin: 12/08/16 23:10 Dose: 100 mls/hr Lisinopril (Prinivil) 20 mg PO DAILY [facility] Last Admin: 12/09/16 11:01 Dose: 20 mg Ondansetron HCl (Zofran Injection) 4 mg IVPB Q8H PRN PRN Reason: NAUSEA AND/OR VOMITING Last Admin: 12/08/16 20:27 Dose: 4 mg - Objective Vital Signs: Vital Signs Temperature 98.9 F 12/09/16 06:00 Pulse Rate 82 12/09/16 06:00 Respiratory Rate 20 12/09/16 06:00 Blood Pressure 118/66 12/09/16 06:00 O2 Sat by Pulse Oximetry (%) 100 12/08/16 21:00 Constitutional: Yes: No Distress Cardiovascular: Yes: Regular Rate and Rhythm Respiratory: Yes: CTA Bilaterally Gastrointestinal: Yes: Normal Bowel Sounds, Soft. No: Distention, Tenderness Edema: No Labs: CBC, BMP 12/09/16 06:00 12/08/16 06:00 INR, PTT INR 0.98 (0.82-1.09) 12/02/16 08:22 Problem List - Problems (1) Anemia Code(s): D64.9 - ANEMIA, UNSPECIFIED Qualifiers: Anemia type: iron deficiency (2) Bladder cancer Code(s): C67.9 - MALIGNANT NEOPLASM OF BLADDER, UNSPECIFIED Qualifiers: Bladder location: overlapping sites Qualified Code(s): C67.8 - Malignant neoplasm of overlapping sites of bladder (3) Gross hematuria Code(s): R31.0 - GROSS HEMATURIA (4) HTN (hypertension) Code(s): I10 - ESSENTIAL (PRIMARY) HYPERTENSION (5) Hematuria Code(s): R31.9 - HEMATURIA, UNSPECIFIED Assessment/Plan PLAN --dc CBI -s/p TURBT and cystoscopy Monitor H/HCT-- stable today continue with meds Pt would like to postpone surgery for appendix mass- he spoke with Dr Harmon already - he would like the hematuria to be resolved prior to any further surgery dvt prophylaxis-- SCD OOB
--- NOTE | 2016-12-09 12:05 | PATH ---
Surgical Pathology Report Patient Name: RED CARMICHAEL Med. Rec. #: [id number] /Age/Gender: 1950 (Age: 66) / M Account: [id number] Location: [facility] MED/SURG Taken: 12/07/2016 Received: 12/08/2016 Reported: 12/09/2016 Physicians: Kp Burks M.D. Specimen(s) Received BLADDER TUMOR Clinical History Bladder tumor Final Diagnosis BLADDER TUMOR, TUR: NON-INVASIVE LOW GRADE PAPILLARY UROTHELIAL CARCINOMA (SEE COMMENT). LAMINA PROPRIA INVASION: NOT IDENTIFIED. MUSCULARIS PROPRIA: PRESENT, FREE OF TUMOR. CARCINOMA IN SITU (CIS): NOT IDENTIFIED. FIBROMUSCULAR PROSTATIC STROMAL TISSUE PRESENT. Comment: Although focal areas of increased cellularity and mildly increased mitotic activity are seen, no significant nuclear pleomorphism is identified; the tumor is best classified as low grade. Refer to [id number] and [id number] for the prior specimens. The case was discussed with Dr. Burks on 12/09/16. Electronically Signed Preston Harris M.D. Gross Description Received in formalin labeled "bladder tumor" is a 4.3 x 2.5 x 0.4 cm aggregate of odell soft tissue fragments admixed with red-brown blood clot. The specimen is entirely submitted in 4 cassettes. /12/08/2016 saudi12/08/2016
[2016-12-09] MEDS ORDERED: ACETAMINOPHEN 325 MG TABLET (FP) PO PRN (18:45)
[2016-12-09] MEDS: POLYETHYLENE GLYCOL 3350 119 GM BTL PO SCH (20:07)
[2016-12-09] MEDS: D5-1/2NS+20 MEQ KCL - 1,000 ML IV SCH (20:23)
[2016-12-10 07:40] LABS: MCH 26.5 pg (25.7-33.7); MCHC 32.7 g/dl (32.0-35.9); MEAN PLT VOLUME 7.3 fl (7.5-11.1); PLATELET COUNT 265 K/MM3 (134-434); RDW 18.4 % (11.9-15.9); WHITE BLOOD COUNT 12.1 K/mm3 (4.0-10.0)
[2016-12-10 08:14] LABS: CALCIUM 8.4 mg/dL (8.5-10.1); COCKROFT - GAULT 88.05; CREATININE 1.1 mg/dL (0.7-1.3)
--- NOTE | 2016-12-10 11:04 | DS ---
Physical Examination Vital Signs: Vital Signs Temperature 98.5 F 12/10/16 06:31 Pulse Rate 85 12/10/16 06:31 Respiratory Rate 18 12/10/16 06:31 Blood Pressure 110/73 12/10/16 06:31 O2 Sat by Pulse Oximetry (%) 100 12/09/16 21:00 Constitutional: Yes: No Distress, Calm Cardiovascular: Yes: Regular Rate and Rhythm Respiratory: Yes: CTA Bilaterally Gastrointestinal: Yes: Normal Bowel Sounds, Soft, Abdomen, Obese. No: Distention, Tenderness Edema: No Labs: CBC, BMP 12/10/16 06:00 12/10/16 06:00 Discharge Summary Reason For Visit: HEMATURIA,ANEMIA Current Active Problems Anemia (Acute) Anemia due to acute blood loss (Acute) Bladder cancer (Acute) Gross hematuria (Acute) Neoplasm of appendix (Acute) Hospital Course: ER HISTORY - History of Present Illness Initial Comments: 12/02/16 08:05 The patient is a 66-year-old man, accompanied by , with a significant past medical history of hypertension and bladder Ca who presents to the emergency department via EMS for further evaluation of hematuria. He underwent a cystoscopy for in May- no chemotherapy/radiation since. He admits that he has been experiencing intermittent episodes of hematuria since August. His episodes are described as noted light pink urine without clots. However, over the past 3 weeks, he notes that his hematuria has worsen as it has become heavier,with noted dark urine and clots. He also notes that his symptoms are associated with headaches and lightheadedness and chills. He also notes that his lightheadedness is exacerbated on exertion (when walking). He denies fever, cough, shortness of breath , chest pain, palpitations, neck pain, leg pain, abdominal pain, nausea, vomiting, diarrhea, dysuria, flank pain, urinary hesitancy, urgency, frequency, penile discharge, testicular pain. He has a surgery scheduled for 12/04/[address] Hale for tumor removal of his appendix and small bowel. Allergies: No Known Drug Allergies Past Surgical History: Cystoscopy- 05/31. 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 Social History: No tobacco, ETOH and recreational drug use. Primary Care Physician: Dr. Mehdi Alonso [phone] Quality Control Auditor: Dr. Roberto Patel [phone] Urologist: Dr. Kp Burks [phone] General Surgeon: Dr. Duy Hale [phone] PT SEEN BY ME IN ER He has been having gross hematuria for about 2 weeks now and did not inform his urologist as he was busy getting pre- operative testing and CT scans for appendiceal CA which was discovered recently. He was scheduled for surgery the end of this week with Dr Hale. Pt came to ER today morning feeling dizzy and had palpitations.He denies ASA or NSAIDS His says that he has been passing clots in the urine, denies any abdominal pain . History Source: Patient, Family Member Limitations to Obtaining History: No Limitations Hospitalization course Pt admitted with gross hematuria nd acute severe anemia Seen by both Urologist and Surgeon Pt underwent Cystoscopy and TURBT on 12/07/16-- he did not want to have appendectomy and small bowel resection- wanted to postpone it. He was on CBI afterwards-- cleared up. CBI removed yesterday . Pt is voiding frequently. His hematuria is clearing up. Hb is 8.7. Received PRBC on admission . Pt is better He will call Dr hale- surgeon as an outpt to re-schedule surgery fpr appendix tumor. Pt is stable for dc home. Condition: Fair - Instructions Referrals: Mehdi Alonso MD [Primary Care Provider] - Kp Burks MD [Staff Physician] - Curtis Hale MD [Staff Physician] - 1 Week Disposition: HOME - Home Medications Comprehensive Discharge Medication List: Ambulatory Orders Amlodipine Besylate/Benazepril [Lotrel 10-20 mg Capsule] 1 cap PO DAILY
[2016-12-10] MEDS ORDERED: DOCUSATE SODIUM 100 MG CAPSULE (FP) PO PRN (11:05)
[2016-12-10] MEDS: amLODIPine BESYLATE 10 MG TABLET (FP) PO SCH (13:51)
[2016-12-10] MEDS: LISINOPRIL 20 MG TABLET (FP) PO SCH (13:51)
[2016-12-10] MEDS: POLYETHYLENE GLYCOL 3350 119 GM BTL PO SCH (13:51)
[2016-12-10 14:55] VITALS: BP 113/67; PULSE 89; TEMP 98.8
== END 2016-12-10 18:30 | disposition home or self-care (01) | DRG 669 ==
LOC: JER 07:53 → JERBED 10:30 → J5S 11:51 → J7W 12-03 19:57
PROVIDERS: ADMIT Internal Medicine; ATTEND Internal Medicine
PROC: 30233N1 Transfusion of Nonautologous Red Blood Cells into Peripheral Vein, Percutaneous Approach (ICD-10-PCS; 2016-12-02)
PROC: 0TBB8ZZ Excision of Bladder, Via Natural or Artificial Opening Endoscopic (ICD-10-PCS; principal; 2016-12-07 14:30)
DX: C67.9 Malignant neoplasm of bladder, unspecified (principal); D62 Acute posthemorrhagic anemia; R31.0 Gross hematuria; D64.9 Anemia, unspecified; I10 Essential (primary) hypertension; N40.0 Benign prostatic hyperplasia without lower urinary tract symptoms; D49.0 Neoplasm of unspecified behavior of digestive system
CPT/HCPCS: 36415; 36430; 74178-TC; 80048; 80053; 81003; 81015; 83690; 85025; 85027; 85610; 86850; 86900; 86901; 86922; 87086; 88307-TC; 93005; 93010; 94760; 99285-25; P9038; P9058; Q9967

== ENCOUNTER 2017-01-07 10:30 | Inpatient (IN) | payer OTHER ==
[2017-01-07 18:54] VITALS: BMI 26.7
[2017-01-07] MEDS ORDERED: D5-1/2NS+10 MEQ KCL - 1,000 ML IV SCH (21:00)
[2017-01-07 22:11] LABS: MCH 23.1 pg (25.7-33.7); MCHC 31.5 g/dl (32.0-35.9); MEAN CELL VOLUME 73.3 fl (80-96); MEAN PLT VOLUME 8.4 fl (7.5-11.1); PLATELET COUNT 248 K/MM3 (134-434); RDW 22.1 % (11.9-15.9); WHITE BLOOD COUNT 7.5 K/mm3 (4.0-10.0)
[2017-01-07 22:28] LABS: INR 1.04 (0.82-1.09); PROTHROMBIN TIME (PATIENT) 11.4 SEC (9.98-11.88)
[2017-01-07 22:31] LABS: ACTIVATED PTT 29.3 SECONDS (26.9-34.4)
[2017-01-07 22:38] LABS: ANISOCYTOSIS 2+; HYPOCHROMIA 2+; MICROCYTOSIS 1+; PLATELET ESTIMATE ADEQUATE (NORMAL); POLYCHROMASIA 1+; TARGET CELLS 1+
[2017-01-07 22:43] LABS: CALCIUM 8.8 mg/dL (8.5-10.1); COCKROFT - GAULT 73.67; CREATININE 1.3 mg/dL (0.7-1.3)
[2017-01-07] MEDS ORDERED: FUROSEMIDE 40 MG/4 ML INJECTABLE VIAL IVPB ONE (23:00)
[2017-01-08] MEDS: amLODIPine BESYLATE 10 MG TABLET (FP) PO SCH ×2 (08:39→11:40)
[2017-01-08] MEDS: LISINOPRIL 20 MG TABLET (FP) PO SCH ×2 (08:39→11:40)
[2017-01-08] MEDS ORDERED: MIDAZOLAM HCL 2 MG/2 ML SINGLE DOSE VIAL ONE (09:20)
[2017-01-08 09:38] LABS: MCH 24.7 pg (25.7-33.7); MCHC 33.1 g/dl (32.0-35.9); MEAN CELL VOLUME 74.7 fl (80-96); MEAN PLT VOLUME 6.8 fl (7.5-11.1); PLATELET COUNT 250 K/MM3 (134-434); RDW 23.3 % (11.9-15.9); WHITE BLOOD COUNT 7.2 K/mm3 (4.0-10.0)
[2017-01-08] MEDS ORDERED: ROCURONIUM BROMIDE 50 MG/5 ML VIAL ONE ×2 (09:52→10:56)
[2017-01-08] MEDS ORDERED: PROPOFOL 20 ML ONE ×2 (09:52)
[2017-01-08] MEDS ORDERED: ceFAZolin SODIUM 1 GM VIAL IVPB ONE (09:59)
[2017-01-08] MEDS ORDERED: PATIENT'S OWN MEDICATION (NON-FORMULARY) (Amlodipine Besylate/Benazepril [Lotrel 10-20 Mg PO SCH (10:00)
[2017-01-08 10:05] LABS: COCKROFT - GAULT 73.67; CREATININE 1.3 mg/dL (0.7-1.3)
[2017-01-08] MEDS ORDERED: METHYLENE BLUE 1% 10 MG/1 ML VIAL ONE (11:25)
[2017-01-08] MEDS ORDERED: METHYLENE BLUE 1% 10 MG/1 ML VIAL IVPUSH ONE (11:35)
[2017-01-08] MEDS ORDERED: NEOSTIGMINE METHYLSULFATE 0.5 MG/ML - 10 ML MDV ONE (13:34)
--- NOTE | 2017-01-08 13:56 | OP ---
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 Anemia. Operation: laparoscopic procedure converted to open right hemicolectomy. Findings: Indurated area on cecum at the appendiceal orifice. Surgeon: Curtis Harmon Anesthesiologist/SAFETY INSTRUCTION POLICE OFFICER: Ez Graff Anesthesia: General Specimens Removed: Right hemicolectomy, iliocolic anastamosis. Estimated Blood Loss (mls): 50 Operative Report Dictated: Yes
--- NOTE | 2017-01-08 14:18 | SURG ---
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 Anemia. Procedure: laparoscopic procedure converted to open right hemicolectomy. I was present for the entirety of the operative procedure. For further detail, please refer to operative report. Visit type - Case Type Case Type: Scheduled Admission - New patient This patient is new to me today: Yes Date on this admission: 01/08/17
[2017-01-08] MEDS ORDERED: ONDANSETRON 4 MG/2 ML VIAL IVPUSH PRN (14:28)
--- NOTE | 2017-01-08 14:32 | PN ---
Progress Note (short form) - Note Progress Note: pt well known to me form office Had surgery scheduled for today as outpt Pre- op work showed anemia-- hb around 8.8 Pt electively admitted last night -- tranfused 2 units\ Pt underwent right hemicolectomy Discussed with Dr. Harmon today also ( See Clearance) Pt seen in icu sedated comfortable Vital Signs Period Temp Pulse Resp BP Sys/Gupta Pulse Ox Last 24 Hr 97.7 F-98.8 F 20-84 16-20 115-166/59-97 98-100 Active Medications Fentanyl (Sublimaze Injection -) 50 mcg IVPUSH [id number] PRN PRN Reason: PAIN Stop: 01/11/17 14:29 Heparin Sodium (Porcine) (Heparin -) 5,000 unit SQ BID JAKE Hydromorphone HCl (Dilaudid Injection -) 1 mg IVPB Q4H PRN PRN Reason: PAIN Lactated Ringer's (Lactated Ringers Solution) 1,000 mls @ 125 mls/hr IV ASDIR JAKE Potassium Chloride/Dextrose/Sod Cl (D5-1/2ns+10 Meq Kcl -) 1,000 mls @ 83 mls/ hr IV ASDIR JAKE Ondansetron HCl (Zofran Injection) 4 mg IVPUSH Q6H PRN PRN Reason: NAUSEA AND/OR VOMITING Stop: 01/08/17 20:29 CBC, BMP 01/08/17 14:30 o/e drowsy but arousable Lungs- clear cvs- s1, s2 rrr Abd- soft ext- no edema A/p 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
[2017-01-08] MEDS ORDERED: HYDROmorphone HCL CARPU-JECT 2 MG/1 ML DISP.SYRIN IVPUSH ONE ×2 (14:50→15:45)
[2017-01-08 14:56] LABS: BASOPHIL 0.5 % (0-2.0); EOSINOPHIL 0.1 % (0-4.5); MCH 24.4 pg (25.7-33.7); MCHC 32.4 g/dl (32.0-35.9); MEAN CELL VOLUME 75.3 fl (80-96); MEAN PLT VOLUME 8.3 fl (7.5-11.1); NEUTROPHILS 83.3 % (42.8-82.8); PLATELET COUNT 297 K/MM3 (134-434); RDW 22.9 % (11.9-15.9); WHITE BLOOD COUNT 13.8 K/mm3 (4.0-10.0)
[2017-01-08] MEDS ORDERED: HYDROmorphone HCL CARPU-JECT 2 MG/1 ML DISP.SYRIN ONE (15:00)
[2017-01-08 15:23] LABS: ALBUMIN 3.1 g/dl (3.4-5.0); BILIRUBIN,TOTAL 0.5 mg/dL (0.2-1.0); CALCIUM 8.3 mg/dL (8.5-10.1); COCKROFT - GAULT 73.67; CREATININE 1.3 mg/dL (0.7-1.3); TOT PROT 6.1 g/dl (6.4-8.2)
[2017-01-08] MEDS: HYDROmorphone HCL CARPU-JECT 1 MG/1 ML DISP.SYRIN IVPB PRN ×2 (18:44→22:22)
[2017-01-08] MEDS: LACTATED RINGERS SOLUTION 1,000 ML IV SCH (18:52)
[2017-01-08] MEDS: HEPARIN NA (PORCINE) 5,000 UNITS/ML 1ML VIAL SQ SCH (22:22)
[2017-01-09] MEDS: HYDROmorphone HCL CARPU-JECT 1 MG/1 ML DISP.SYRIN IVPB PRN ×3 (04:54→13:02)
[2017-01-09 07:47] LABS: MCH 24.2 pg (25.7-33.7); MCHC 32.9 g/dl (32.0-35.9); MEAN CELL VOLUME 73.6 fl (80-96); MEAN PLT VOLUME 7.6 fl (7.5-11.1); PLATELET COUNT 245 K/MM3 (134-434); RDW 22.9 % (11.9-15.9); WHITE BLOOD COUNT 20.1 K/mm3 (4.0-10.0)
[2017-01-09 08:23] LABS: ALBUMIN 3.1 g/dl (3.4-5.0); ALK PHOS 47 U/L (45-117); ANION GAP 12 (8-16); CALCIUM 8.5 mg/dL (8.5-10.1); CO2 25 mmol/L (21-32); COCKROFT - GAULT 79.81; CREATININE 1.2 mg/dL (0.7-1.3); GLUCOSE,RANDOM 152 mg/dL (74-106); SGOT/AST 20 U/L (15-37); SGPT/ALT 25 U/L (12-78); TOT PROT 6.1 g/dl (6.4-8.2)
[2017-01-09] MEDS: HEPARIN NA (PORCINE) 5,000 UNITS/ML 1ML VIAL SQ SCH ×2 (09:00→22:44)
--- NOTE | 2017-01-09 09:30 | OP ---
DATE OF OPERATION: 01/08/2017 PREOPERATIVE DIAGNOSES: 1. Suspicious tumor at the appendiceal orifice of the cecum. 2. Anemia. 3. Recurrent multiple bladder tumors. POSTOPERATIVE DIAGNOSIS: 1. Suspicious tumor at the appendiceal orifice of the cecum. 2. Anemia. 3. Recurrent multiple bladder tumors. OPERATIVE PROCEDURE: Laparoscopic procedure converted to open procedure, right hemicolectomy with ileocolic anastomosis, mobilization of the splenic flexure of the colon. SURGEON: Duy Harmon MD SUGAR DRIER: DRE Hunter ANESTHESIA: General anesthesia. OPERATIVE DESCRIPTION: This 66-year-old man was brought in for right hemicolectomy. Consent was obtained. Risks, benefits, and complications have been discussed with the patient many times. He was also admitted with severe anemia. He also has multiple bladder tumors of many years and had recent resection of the bladder tumor as well. As the patient had a tumor at the appendiceal orifice of the cecum, he required a right hemicolectomy for the tumor. Patient was given general anesthesia. Placed in lithotomy position. The abdomen was painted and draped. Timeout was called. He was given 1 g of Ancef as per protocol. A 10-mm incision was made in the subxiphoid area. This was carried down all the way to the anterior rectus sheath and the linea alba was divided in the midline and 2 stay sutures of 2-0 Vicryl obtained and a 10-to-12-mm laparoscopic trocar was inserted into the abdominal cavity. The abdomen was inflated with carbon dioxide at 6 L per minute with maximum intraabdominal pressure of 15 mmHg. A camera was introduced into the abdominal cavity. Another incision was made just in the supraumbilical area which was again carried down to the anterior rectus sheath and a 10-mm trocar was inserted into the abdominal cavity under direct vision with the camera. After this, two 5-mm trocars were inserted in both lower quadrants of the abdomen. These were noted entering the abdominal cavity under direct vision with the camera. However, the endo [place] was not available as there was another case in another room, a bariatric procedure for which the instrument was used. There was no other endo Ana in store and therefore this made it difficult to retract the cecum and ascending colon. This was held with a bowel clamp. However, it does not produce adequate traction. Attempt was then made to mobilize the cecum and terminal ileum by incising the lateral peritoneal reflection of the cecum which was carried around the cecum to the terminal ileum. Attempt was then made to carry this cephalad to mobilize the ascending colon. However, because of lack of traction there was more injury to the bowel than traction. It was therefore decided to convert this to an open procedure. The abdomen was opened through a vertical midline incision in the upper abdomen. Upon entering the abdominal cavity, there was a little induration around the ileocecal junction at the appendiceal orifice. The cecum and ascending colon were then mobilized around deeper as well as carrying this around the hepatic flexure by incising the lateral peritoneal reflection and mobilizing the cecum, ascending colon, as well as terminal ileum. The omentum was freed from the transverse colon at the junction of the proximal 3rd to the middle 3rd. Once this was done, the mesentery of the right colon was incised all the way down to about 8 cm from the terminal ileum. All bleeding vessels were ligated with 2-0 silk sutures. The middle colic vessel was divided at its origin with 2-0 silk sutures. Once this was done, the bowel was divided using Endo-EZRA. At the junction of the proximal 3rd and the middle 3rd of the transverse colon and terminal ileum about 6 to 8 cm from the ileocecal valve. The specimen was sent to Pathology. Once this was done, the terminal ileum was brought against the middle portion of the transverse colon, laid end to end or side to side on its antimesenteric side and along the tinea of the transverse colon. The stapled end was then opened and a iqft-lk-[id number] anastomosis was performed. The open end of the anastomosis was then closed off using another EZRA stapling device. However, initially there was a twist of the small bowel and this required revision of the anastomosis. The splenic flexure was then mobilized as well and a rgvg-up-wlnd anastomosis was performed using the EZRA. This was passed through the stapled end of the transverse colon and the terminal ileum. A functional end-to-end but rqum-lk-tduv anastomosis was performed along the antimesenteric side of the terminal ileum and along the tinea coli of the transverse colon. The open end was then closed off with another layer of faby. The anastomosis was adequate. The mesentery was then approximated with interrupted and yaoume-vo-gwftu 3-0 silk sutures. Hemostasis was satisfactory at the completion of the procedure. The anastomosis had adequate blood supply. The abdominal cavity was then thoroughly irrigated with normal saline. The abdomen was then closed with continuous No. 1 looped PDS sutures in a running fashion. The skin was approximated with faby. Estimated blood loss was about 100 mL. An abdominal x-ray was obtained at the completion of the procedure. There was no foreign body within the abdomen. Patient was extubated and returned to the recovery room in satisfactory and stable condition. Mendez catheter was left in the bladder. This will be removed 24 hours postoperative. Tri [id number]
--- NOTE | 2017-01-09 11:16 | PN ---
Progress Note (short form) - Note Progress Note: Pt seen/ examined Pod #1 comfortable Mild pain + no distress not passing gas yet Vital Signs Temp 98.8 F 01/09/17 08:17 Pulse 103 H 01/09/17 08:17 Resp 18 01/09/17 08:17 BP 130/67 01/09/17 08:17 Pulse Ox 96 01/08/17 21:00 Intake & Output 01/08/17 01/08/17 01/09/17 11:59 23:59 11:59 Intake Total 3640 1299 515 Output Total 4100 1700 Balance 3640 -2594 -1189 Intake: IV 3000 1299 415 Lactated Ringers Solution 750 415 1,000 ml @ 125 mls/hr IV ASDIR JAKE Rx#: [id number] D5-1/2Ns+10 Meq KCl - 1, 249 000 ml @ 83 mls/hr IV ASDIR JAKE Rx#:[id number] IVPB 50 100 Oral 240 Packed Cells 350 Output: Urine 2800 1700 Mendez 1600 1700 Estimated Blood Loss 100 Other 1200 Other: Voiding Method Toilet Urinal Indwelling Catheter Bowel Movement No No No Active Medications Fentanyl (Sublimaze Injection -) 50 mcg IVPUSH [id number] PRN PRN Reason: PAIN Stop: 01/11/17 14:29 Heparin Sodium (Porcine) (Heparin -) 5,000 unit SQ BID JAKE Last Admin: 01/09/17 09:00 Dose: 5,000 unit Hydromorphone HCl (Dilaudid Injection -) 1 mg IVPB Q4H PRN PRN Reason: PAIN Last Admin: 01/09/17 08:55 Dose: 1 mg Lactated Ringer's (Lactated Ringers Solution) 1,000 mls @ 125 mls/hr IV ASDIR JAKE Last Admin: 01/08/17 18:52 Dose: Not Given Potassium Chloride/Dextrose/Sod Cl (D5-1/2ns+10 Meq Kcl -) 1,000 mls @ 83 mls/ hr IV ASDIR JAKE CBC, BMP 01/09/17 06:00 01/09/17 06:00 o/e awake/ comfortable Lungs- clear cvs- s1, s2 rrr Abd- soft ext- no edema 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
[2017-01-09] MEDS: D5-1/2NS+10 MEQ KCL - 1,000 ML IV SCH ×2 (12:48→23:43)
[2017-01-09] MEDS ORDERED: HYDROmorphone *PCA* 10MG/50ML DISP.SYRIN PCA SCH (14:00)
--- NOTE | 2017-01-09 14:13 | PN ---
Progress Note, Physician - Current Medication List Current Medications: Active Medications Heparin Sodium (Porcine) (Heparin -) 5,000 unit SQ BID JAKE Last Admin: 01/09/17 09:00 Dose: 5,000 unit Hydromorphone HCl (Dilaudid Desktop Support Associate -) 0 mg PROJECT ASST PROJECT ASST JAKE PRN Reason: Protocol Stop: 01/12/17 13:56 Lactated Ringer's (Lactated Ringers Solution) 1,000 mls @ 125 mls/hr IV ASDIR JAKE Last Admin: 01/08/17 18:52 Dose: Not Given Potassium Chloride/Dextrose/Sod Cl (D5-1/2ns+10 Meq Kcl -) 1,000 mls @ 83 mls/ hr IV ASDIR JAKE - Objective Vital Signs: Vital Signs Temperature 98.8 F 01/09/17 08:17 Pulse Rate 103 H 01/09/17 08:17 Respiratory Rate 18 01/09/17 08:17 Blood Pressure 130/67 01/09/17 08:17 O2 Sat by Pulse Oximetry (%) 96 01/08/17 21:00 Labs: CBC, BMP 01/09/17 06:00 01/09/17 06:00 INR, PTT INR 1.04 (0.82-1.09) 01/07/17 21:30 Assessment/Plan Surgery: Postop day 1. Abdomen is soft . Wound is clean. Extremities : normal. Ambulate. D/C del valle catheter.
[2017-01-09] MEDS: LACTATED RINGERS SOLUTION 1,000 ML IV SCH (16:28)
[2017-01-09] MEDS ORDERED: PT OWN MED DRAWER 7, Y5N ONE (16:56)
[2017-01-09] MEDS ORDERED: HYDROmorphone *PCA* 10MG/50ML DISP.SYRIN PCA ONE (16:59)
[2017-01-09] MEDS: HYDROmorphone HCL CARPU-JECT 2 MG/1 ML DISP.SYRIN IVPB PRN ×2 (18:33→22:43)
--- NOTE | 2017-01-09 18:40 | PN ---
Progress Note, Physician Chief Complaint: s/p open hemicolectomy under general anesthesia History of Present Illness: post op day one - Current Medication List Current Medications: Active Medications Heparin Sodium (Porcine) (Heparin -) 5,000 unit SQ BID JAKE Last Admin: 01/09/17 09:00 Dose: 5,000 unit Hydromorphone HCl (Dilaudid Wire Fence Erector -) 0 mg ACCESS CLERK ACCESS CLERK JAKE PRN Reason: Protocol Stop: 01/12/17 13:56 Hydromorphone HCl (Dilaudid Injection -) 2 mg IVPB Q4H PRN PRN Reason: PAIN Lactated Ringer's (Lactated Ringers Solution) 1,000 mls @ 125 mls/hr IV ASDIR JAKE Last Admin: 01/09/17 16:28 Dose: Not Given Potassium Chloride/Dextrose/Sod Cl (D5-1/2ns+10 Meq Kcl -) 1,000 mls @ 83 mls/ hr IV ASDIR JAKE - Objective Vital Signs: Vital Signs Temperature 99.9 F H 01/09/17 14:49 Pulse Rate 113 H 01/09/17 14:49 Respiratory Rate 18 01/09/17 14:49 Blood Pressure 141/77 01/09/17 14:49 O2 Sat by Pulse Oximetry (%) 96 01/09/17 09:00 Constitutional: Yes: Well Nourished Cardiovascular: Yes: WNL Respiratory: Yes: WNL Gastrointestinal: Yes: Tenderness Labs: CBC, BMP 01/09/17 06:00 01/09/17 06:00 INR, PTT INR 1.04 (0.82-1.09) 01/07/17 21:30 Assessment/Plan patient reports poor pain control, no other anesthetic complications. Ordered ACCESS CLERK. Will re evaluate tomorrow.
[2017-01-10] MEDS: HYDROmorphone HCL CARPU-JECT 2 MG/1 ML DISP.SYRIN IVPB PRN ×3 (03:17→11:31)
[2017-01-10 07:37] LABS: BASOPHIL 0.2 % (0-2.0); EOSINOPHIL 0.4 % (0-4.5); MCH 24.4 pg (25.7-33.7); MCHC 33.3 g/dl (32.0-35.9); MEAN CELL VOLUME 73.2 fl (80-96); MEAN PLT VOLUME 8.2 fl (7.5-11.1); NEUTROPHILS 86.6 % (42.8-82.8); PLATELET COUNT 218 K/MM3 (134-434); RDW 24.2 % (11.9-15.9); WHITE BLOOD COUNT 18.3 K/mm3 (4.0-10.0)
[2017-01-10 08:17] LABS: ANION GAP 12 (8-16); BILIRUBIN,TOTAL 0.9 mg/dL (0.2-1.0); CALCIUM 8.9 mg/dL (8.5-10.1); CO2 26 mmol/L (21-32); COCKROFT - GAULT 106.41; CREATININE 0.9 mg/dL (0.7-1.3); GLUCOSE,RANDOM 124 mg/dL (74-106); SGOT/AST 19 U/L (15-37); SGPT/ALT 20 U/L (12-78)
[2017-01-10 08:18] LABS: ALK PHOS 52 U/L (45-117); TOT PROT 6.3 g/dl (6.4-8.2)
[2017-01-10] MEDS: HEPARIN NA (PORCINE) 5,000 UNITS/ML 1ML VIAL SQ SCH ×2 (10:04→22:54)
[2017-01-10] MEDS: D5-1/2NS+10 MEQ KCL - 1,000 ML IV SCH ×2 (11:30→18:26)
--- NOTE | 2017-01-10 11:54 | PN ---
Progress Note (short form) - Note Progress Note: pod # 2' feels better afebrile denies pain- says ok passing little gas at bedside surgical f/u noted Vital Signs Temp 98.7 F 01/10/17 06:52 Pulse 89 01/10/17 06:52 Resp 18 01/10/17 06:52 BP 140/73 01/10/17 06:52 Pulse Ox 96 01/09/17 09:00 Intake & Output 01/09/17 01/09/17 01/10/17 11:59 23:59 11:59 Intake Total 515 300 100 Output Total 1700 1300 680 Balance -1185 -1000 -580 Intake: IV 415 300 Lactated Ringers Solution 415 1,000 ml @ 125 mls/hr IV ASDIR JAKE Rx#: [id number] D5-1/2Ns+10 Meq KCl - 1, 300 000 ml @ 83 mls/hr IV ASDIR JAKE Rx#:[id number] IVPB 100 100 Output: Urine 1700 1300 680 Mendez 1700 1300 Void 680 Other: Voiding Method Indwelling Catheter Urinal Urinal Bowel Movement No No No Active Medications Heparin Sodium (Porcine) (Heparin -) 5,000 unit SQ BID JAKE Last Admin: 01/10/17 10:04 Dose: 5,000 unit Hydromorphone HCl (Dilaudid Retail Analyst -) 0 mg SOAKING ROOM OPERATOR SOAKING ROOM OPERATOR JAKE PRN Reason: Protocol Stop: 01/12/17 13:56 Hydromorphone HCl (Dilaudid Injection -) 2 mg IVPB Q4H PRN PRN Reason: PAIN Last Admin: 01/10/17 11:31 Dose: 2 mg Lactated Ringer's (Lactated Ringers Solution) 1,000 mls @ 125 mls/hr IV ASDIR JAKE Last Admin: 01/09/17 16:28 Dose: Not Given Potassium Chloride/Dextrose/Sod Cl (D5-1/2ns+10 Meq Kcl -) 1,000 mls @ 83 mls/ hr IV ASDIR JAKE Last Admin: 01/09/17 23:43 Dose: 83 mls/hr CBC, BMP 01/10/17 06:00 01/10/17 06:00 o/e awake/ comfortable Lungs- clear cvs- s1, s2 rrr Abd- soft ext- no edema 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
[2017-01-10] MEDS: LACTATED RINGERS SOLUTION 1,000 ML IV SCH (16:58)
--- NOTE | 2017-01-10 20:45 | PN ---
Progress Note, Physician - Current Medication List Current Medications: Active Medications Heparin Sodium (Porcine) (Heparin -) 5,000 unit SQ BID JAKE Last Admin: 01/10/17 10:04 Dose: 5,000 unit Hydromorphone HCl (Dilaudid Pole Cutter -) 0 mg VIDEO NEWS EDITOR VIDEO NEWS EDITOR JAKE PRN Reason: Protocol Stop: 01/12/17 13:56 Last Admin: 01/10/17 16:57 Dose: Not Given Hydromorphone HCl (Dilaudid Injection -) 2 mg IVPB Q4H PRN PRN Reason: PAIN Last Admin: 01/10/17 11:31 Dose: 2 mg Lactated Ringer's (Lactated Ringers Solution) 1,000 mls @ 125 mls/hr IV ASDIR JAKE Last Admin: 01/10/17 16:58 Dose: Not Given Potassium Chloride/Dextrose/Sod Cl (D5-1/2ns+10 Meq Kcl -) 1,000 mls @ 83 mls/ hr IV ASDIR JAKE Last Admin: 01/10/17 18:26 Dose: Not Given - Objective Vital Signs: Vital Signs Temperature 99.7 F H 01/10/17 18:00 Pulse Rate 110 H 01/10/17 18:00 Respiratory Rate 16 01/10/17 18:00 Blood Pressure 160/83 01/10/17 18:00 O2 Sat by Pulse Oximetry (%) 96 01/09/17 09:00 Labs: CBC, BMP 01/10/17 06:00 01/10/17 06:00 INR, PTT INR 1.04 (0.82-1.09) 01/07/17 21:30 Assessment/Plan Surgery: wound is clean, abdomen is not distended, soft . Still needing pain medications. Keep NPO, IV fluids. WBC 96273. hematocrit is OK
[2017-01-11] MEDS: ONDANSETRON 4 MG/2 ML VIAL IVPB PRN ×2 (00:19→15:54)
[2017-01-11 07:44] LABS: BASOPHIL 0.2 % (0-2.0); EOSINOPHIL 0.1 % (0-4.5); MCH 24.1 pg (25.7-33.7); MCHC 32.4 g/dl (32.0-35.9); MEAN CELL VOLUME 74.3 fl (80-96); MEAN PLT VOLUME 8.4 fl (7.5-11.1); NEUTROPHILS 89.4 % (42.8-82.8); PLATELET COUNT 276 K/MM3 (134-434); RDW 24.4 % (11.9-15.9); WHITE BLOOD COUNT 19.2 K/mm3 (4.0-10.0)
[2017-01-11 08:11] LABS: ALBUMIN 3.2 g/dl (3.4-5.0); ANION GAP 12 (8-16); CALCIUM 9.2 mg/dL (8.5-10.1); CO2 28 mmol/L (21-32); COCKROFT - GAULT 87.06; CREATININE 1.1 mg/dL (0.7-1.3); GLUCOSE,RANDOM 151 mg/dL (74-106); SGOT/AST 17 U/L (15-37); SGPT/ALT 21 U/L (12-78)
[2017-01-11 08:13] LABS: ALK PHOS 59 U/L (45-117); BILIRUBIN,TOTAL 0.9 mg/dL (0.2-1.0); TOT PROT 7.1 g/dl (6.4-8.2)
[2017-01-11] MEDS: HEPARIN NA (PORCINE) 5,000 UNITS/ML 1ML VIAL SQ SCH (11:26)
--- NOTE | 2017-01-11 11:47 | PN ---
Progress Note, Physician Chief Complaint: Patient is transferred to ICU step down for cardiac monitoring. The nurse found him sweating and having tachycardia. Had no abdominal pain, and has been passing flatus and has had a small bowel movement. He is alert and oriented and denies any abdominal pain. History of Present Illness: Had no abdominal pain, and has been passing flatus and has had a small bowel movement. He is alert and oriented and denies any abdominal pain. Post op day, #3, following right hemicolectomy. He had been on DVT prophylaxis , with Heparin,. He is not nauseous. - Current Medication List Current Medications: Active Medications Heparin Sodium (Porcine) (Heparin -) 5,000 unit SQ BID JAKE Last Admin: 01/11/17 11:26 Dose: 5,000 unit Hydromorphone HCl (Dilaudid Assessment Services Manager -) 0 mg PLATING FOREMAN PLATING FOREMAN JAKE PRN Reason: Protocol Stop: 01/12/17 13:56 Last Admin: 01/10/17 16:57 Dose: Not Given Hydromorphone HCl (Dilaudid Injection -) 2 mg IVPB Q4H PRN PRN Reason: PAIN Last Admin: 01/10/17 11:31 Dose: 2 mg Lactated Ringer's (Lactated Ringers Solution) 1,000 mls @ 125 mls/hr IV ASDIR [facility] Last Admin: 01/10/17 16:58 Dose: Not Given Potassium Chloride/Dextrose/Sod Cl (D5-1/2ns+10 Meq Kcl -) 1,000 mls @ 83 mls/ hr IV ASDIR [facility] Last Admin: 01/10/17 18:26 Dose: Not Given Ondansetron HCl (Zofran Injection) 4 mg IVPB Q6H PRN PRN Reason: NAUSEA AND/OR VOMITING Last Admin: 01/11/17 00:19 Dose: 4 mg - Objective Vital Signs: Vital Signs Temperature 99.5 F 01/11/17 10:00 Pulse Rate 114 H 01/11/17 10:00 Respiratory Rate 18 01/11/17 10:00 Blood Pressure 142/78 01/11/17 10:00 O2 Sat by Pulse Oximetry (%) 96 01/09/17 09:00 Cardiovascular: Yes: Tachycardia (SAtrial fibrillation with rapid ventricular rate, etiology : Rule out pulmonary embolus.), Pulse Irregular Gastrointestinal: Yes: Other (Abdomen is soft, wound is clean, abdomen is not tender, and not distended.) Labs: CBC, BMP 01/11/17 06:00 01/11/17 06:00 INR, PTT INR 1.04 (0.82-1.09) 01/07/17 21:30 Assessment/Plan [place] [address]. ?Had bowel movement. Got called by nurse , to say "patient has headache because he is not eating", this morning. Patient has had an anastamosis of small intestine to large intestine, and will hold feeding, for another day. Leucocytosis, ? , no wound infection. Atrial fibrillation with rapid ventricular rate. He is alert and oriented and not in any distress, not tachypnic, Abdomen is soft , not tender. CT scan of abdomen and chest , PE protocol requested. Disscussed with patients , clinical laboratory medical director and Dr. Alonso. ABG : No acidosis, no hypoxia, normal Oxygen saturation.
--- NOTE | 2017-01-11 14:19 | PN ---
Progress Note (short form) - Note Progress Note: pod # 23 feels better afebrile denies pain- says ok passing little gas at bedside surgical f/u noted walked little in hallway Vital Signs Temp 99.5 F 01/11/17 10:00 Pulse 114 H 01/11/17 10:00 Resp 18 01/11/17 10:00 BP 142/78 01/11/17 10:00 Pulse Ox 96 01/09/17 09:00 Intake & Output 01/10/17 01/11/17 01/11/17 23:59 11:59 23:59 Intake Total 1050 Output Total 950 600 Balance -950 450 Intake: IV 1000 D5-1/2Ns+10 Meq KCl - 1, 1000 000 ml @ 83 mls/hr IV ASDIR JAKE Rx#:[id number] IVPB 50 Output: Urine 950 600 Void 950 600 Other: Voiding Method Urinal Urinal # Unmeasured Voids Void 1 Bowel Movement Yes # Bowel Movements 1 Active Medications Heparin Sodium (Porcine) (Heparin -) 5,000 unit SQ BID JAKE Last Admin: 01/10/17 10:04 Dose: 5,000 unit Hydromorphone HCl (Dilaudid Intraoperative Neuro Tech -) 0 mg MACHINE II COREMAKER MACHINE II COREMAKER JAKE PRN Reason: Protocol Stop: 01/12/17 13:56 Hydromorphone HCl (Dilaudid Injection -) 2 mg IVPB Q4H PRN PRN Reason: PAIN Last Admin: 01/10/17 11:31 Dose: 2 mg Lactated Ringer's (Lactated Ringers Solution) 1,000 mls @ 125 mls/hr IV ASDIR JAKE Last Admin: 01/09/17 16:28 Dose: Not Given Potassium Chloride/Dextrose/Sod Cl (D5-1/2ns+10 Meq Kcl -) 1,000 mls @ 83 mls/ hr IV ASDIR JAKE Last Admin: 01/09/17 23:43 Dose: 83 mls/hr CBC, BMP 01/11/17 06:00 01/11/17 06:00 Physical exam awake/ comfortable Lungs- clear cvs- s1, s2 rrr Abd- soft-- surgical site clean ext- no edema 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
[2017-01-11] MEDS: HYDROmorphone HCL CARPU-JECT 2 MG/1 ML DISP.SYRIN IVPB PRN (15:53)
--- NOTE | 2017-01-11 16:51 | HOSP ---
Physical Examination Vital Signs: Vital Signs Temperature 99.5 F 01/11/17 10:00 Pulse Rate 114 H 01/11/17 10:00 Respiratory Rate 18 01/11/17 10:00 Blood Pressure 142/78 01/11/17 10:00 O2 Sat by Pulse Oximetry (%) 96 01/09/17 09:00 Labs: CBC, BMP 01/11/17 06:00 01/11/17 06:00 Hospitalist Encounter Assessment: Notified by RN that patient is tachycardic. When I arrived patients heart rate was in the 170's. Patient was diaphoretic but denies any chest pain, shortness of breath, abdominal pain, headaches, nausea or vomiting. Patient initially given 6mg Adenosine while waiting for EKG. STAT EKG was done and patient was found to have A.Flutter. 5MG of Lopressor given and patient was moved to telemetry. Patient's heart rate continued to be in the 170's on clearing supervisor and Cardiology was called. Cardiology reviewed the EKG and believes it is more A.fib than A.flutter. Cardiology recommended Cardizem drip and Heparin drip. Two bolus's of 10mg Cardizem given and drip was started. Spoke to PCP and Surgeon who recommended ordering stat lactic to rule out sepsis and CT Abdomen and Chest CTA to rule out PE. Vitals: BP- 118/87 HR- 170's 02- 99% RA RR- 14 PHYSICAL EXAM: General: Diaphoretic but in no acute distress LUNGS: CTA B/L HEART: Tachycardic, irregular rhythm ABDOMEN: Soft, nontender, surgical incision in mid abdominal region EXTREMITIES: No peripheral edema Visit type - Emergency Visit Emergency Visit: No - New Patient This patient is new to me today: Yes Date on this admission: 01/12/17 - Critical Care Critical Care patient: Yes Total Critical Care Time (in minutes): 65 Critical Care Statement: The care of this patient involved high complexity decision making to prevent further life threatening deterioration of the patient 's condition and/or to evalute & treat vital organ system(s) failure or risk of failure.
[2017-01-11] MEDS ORDERED: METOPROLOL TARTRATE 5 MG/5 ML VIAL IVPUSH ONE ×2 (16:52→17:03)
[2017-01-11] MEDS ORDERED: ADENOSINE 6 MG/2 ML VIAL IVPUSH ONE (16:57)
[2017-01-11] MEDS ORDERED: D5-1/2NS+20 MEQ KCL - 1,000 ML IV SCH (17:15)
[2017-01-11] MEDS: LEVOFLOXACIN 500 MG IVPB 100 ML IVPB SCH (17:23)
[2017-01-11] MEDS ORDERED: dilTIAZem HCL 50 MG/10 ML - 10 ML VIAL IVPUSH ONE ×2 (17:27→17:50)
[2017-01-11] MEDS ORDERED: DILTIAZEM INJECTION 125 MG in DEXTROSE 5%-WATER - 100 ML IVPB SCH (17:45)
[2017-01-11] MEDS ORDERED: HEPARIN NA (PORCINE) 5,000 UNITS/ML 1ML VIAL IVPUSH PRN ×2 (18:15)
[2017-01-11 19:10] LABS: ALLENS TEST POSITIVE; ART PUNCT SITE RIGHT RADIAL; ARTERIAL BLD GAS O2 SATURATION 97.3 % (90-98.9); ARTERIAL BLOOD GAS BASE EXCESS 3.6 meq/l (-2-2); ARTERIAL BLOOD GAS HCO3 27.5 meq/L (22-26); ARTERIAL BLOOD GAS PO2 89.4 mmHg (80-100); ARTERIAL BLOOD GAS pH 7.44 (7.35-7.45); PT. ON O2? YES
[2017-01-11 19:11] LABS: LPM/O2% 3L; TYPE OF O2 N/C
--- NOTE | 2017-01-11 19:20 | CON.CARD ---
Consult Consult Specialty:: Cardiology - History of Present Illness History of Present Illness: The patient is a 66-year-old man, accompanied by , with a significant past medical history of hypertension and bladder Ca who presents to the emergency department via EMS for further evaluation of hematuria. He underwent a cystoscopy for in May- no chemotherapy/radiation since. He admits that he has been experiencing intermittent episodes of hematuria since August. His episodes are described as noted light pink urine without clots. However, over the past 3 weeks, he notes that his hematuria has worsen as it has become heavier,with noted dark urine and clots. He also notes that his symptoms are associated with headaches and lightheadedness and chills. He also notes that his lightheadedness is exacerbated on exertion (when walking). He denies fever, cough, shortness of breath , chest pain, palpitations, neck pain, leg pain, abdominal pain, nausea, vomiting, diarrhea, dysuria, flank pain, urinary hesitancy, urgency, frequency, penile discharge, testicular pain. He has a surgery scheduled for 12/04/[address] Harmon for tumor removal of his appendix and small bowel - patient refused. Allergies: No Known Drug Allergies Past Surgical History: Cystoscopy- 05/31. 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 Social History: No tobacco, ETOH and recreational drug use. Primary Care Physician: Dr. Mehdi Alonso [phone] Recording Studio Setup Worker: Dr. Roberto Patel [phone] Urologist: Dr. Kp Burks [phone] General Surgeon: Dr. Duy Harmon [phone] Patient subsequently underwent elective right hemicolectomy on 01/08/2017 Post of developed leukocytosis and today AF with RVR. Transfered to telemetry for further management. Case d/w resident dr. Reed - History Source History Provided By: Patient, Medical Record - Past Medical History Cardio/Vascular: Yes: HTN Gastrointestinal: Yes: Other (high grade dysplasia appendix) Renal/: Yes: BPH, Cancer, Hematuria - Alcohol/Substance Use Hx Alcohol Use: No - Smoking History Smoking history: Never smoked Have you smoked in the past 12 months: No Home Medications - Allergies Allergies/Adverse Reactions: Allergies Allergy/AdvReac Type Severity Reaction Status Date / Time No Known Drug Allergies Allergy Verified 12/02/16 07:54 - Home Medications Home Medications: Ambulatory Orders Amlodipine Besylate/Benazepril [Lotrel 10-20 mg Capsule] 1 cap PO DAILY Docusate Sodium [Colace -] 100 mg PO Q8H PRN #60 tab 12/10/16 Review of Systems - Review of Systems Constitutional: reports: No Symptoms Eyes: reports: No Symptoms HENT: reports: No Symptoms Neck: reports: No Symptoms Cardiovascular: reports: Other (palpitations) Respiratory: reports: SOB Gastrointestinal: reports: No Symptoms Genitourinary: reports: No Symptoms Breasts: reports: No Symptoms Reported Musculoskeletal: reports: No Symptoms Integumentary: reports: No Symptoms Neurological: reports: No Symptoms Endocrine: reports: No Symptoms Hematology/Lymphatic: reports: No Symptoms Psychiatric: reports: No Symptoms Vital Signs: Vital Signs Temperature 99.1 F 01/11/17 18:00 Pulse Rate 150 H 01/11/17 19:04 Respiratory Rate 22 01/11/17 18:00 Blood Pressure 114/60 01/11/17 19:04 O2 Sat by Pulse Oximetry (%) 95 01/11/17 17:00 Constitutional: Yes: Well Nourished, No Distress, Calm Eyes: Yes: WNL, Conjunctiva Clear, EOM Intact HENT: Yes: WNL, Atraumatic, Normocephalic Neck: Yes: WNL, Supple, Trachea Midline Respiratory: Yes: WNL, Regular, CTA Bilaterally Gastrointestinal: Yes: WNL, Normal Bowel Sounds Renal/: Yes: WNL Cardiovascular: Yes: Pulse Irregular Heart Sounds: Yes: S1, S2 Musculoskeletal: Yes: WNL Extremities: Yes: WNL Integumentary: Yes: WNL Neurological: Yes: WNL, Alert, Oriented ...Motor Strength: WNL Psychiatric: Yes: WNL, Alert, Oriented - Other Data Labs, Other Data: CBC, BMP 01/11/17 06:00 01/11/17 06:00 INR, PTT INR 1.04 (0.82-1.09) 01/07/17 21:30 Troponin, BNP 01/11/17 17:10 Troponin I < 0.02 Troponin, BNP 01/11/17 17:10 Troponin I < 0.02 Laboratory Tests 01/07/17 01/07/17 01/07/17 21:30 21:30 21:30 WBC 7.5 D RBC 3.37 L Hgb 7.8 L D Hct 24.7 L MCV 73.3 L MCHC 31.5 L RDW 22.1 H D Plt Count 248 MPV 8.4 D Neutrophils % Lymphocytes % Monocytes % Eosinophils % Basophils % Platelet Estimate Adequate Platelet Comment No clumping noted Polychromasia 1+ Hypochromic-Microcytic 2+ Anisocytosis 2+ Microcytosis 1+ Target Cells 1+ INR PTT (Actin FS) Puncture Site ABG pH ABG pCO2 at Pt Temp ABG pO2 at Pt Temp ABG HCO3 ABG O2 Sat (Measured) ABG O2 Content ABG Base Excess Leo Test O2 Delivery Device Oxygen Flow Rate PEEP Sodium 140 Potassium 4.2 Chloride 107 Carbon Dioxide 26 Anion Gap 7 L BUN 17 D Creatinine 1.3 Creat Clearance w eGFR POC Glucometer Random Glucose 96 Lactic Acid Calcium 8.8 Total Bilirubin AST ALT Alkaline Phosphatase Troponin I Total Protein Albumin Blood Type O POSITIVE Antibody Screen Negative Crossmatch See Detail 01/07/17 01/08/17 01/08/17 21:30 09:20 09:20 WBC 7.2 RBC 4.16 D Hgb 10.3 L D Hct 31.1 L D MCV 74.7 L MCHC 33.1 RDW 23.3 H Plt Count 250 MPV 6.8 L D Neutrophils % Lymphocytes % Monocytes % Eosinophils % Basophils % Platelet Estimate Platelet Comment Polychromasia Hypochromic-Microcytic Anisocytosis Microcytosis Target Cells INR 1.04 PTT (Actin FS) 29.3 Puncture Site ABG pH ABG pCO2 at Pt Temp ABG pO2 at Pt Temp ABG HCO3 ABG O2 Sat (Measured) ABG O2 Content ABG Base Excess Leo Test O2 Delivery Device Oxygen Flow Rate PEEP Sodium 140 Potassium 3.9 Chloride 105 Carbon Dioxide 25 Anion Gap 10 BUN 14 Creatinine 1.3 Creat Clearance w eGFR POC Glucometer Random Glucose 88 Lactic Acid Calcium 9.0 Total Bilirubin AST ALT Alkaline Phosphatase Troponin I Total Protein Albumin Blood Type Antibody Screen Crossmatch 01/08/17 01/08/17 01/09/17 14:30 14:30 06:00 WBC 13.8 H D 20.1 H D RBC 4.70 4.20 Hgb 11.5 L D 10.2 L D Hct 35.4 30.9 L MCV 75.3 L 73.6 L MCHC 32.4 32.9 RDW 22.9 H 22.9 H Plt Count 297 245 MPV 8.3 D 7.6 Neutrophils % 83.3 H Lymphocytes % 10.5 D Monocytes % 5.6 Eosinophils % 0.1 D Basophils % 0.5 Platelet Estimate Platelet Comment Polychromasia Hypochromic-Microcytic Anisocytosis Microcytosis Target Cells INR PTT (Actin FS) Puncture Site ABG pH ABG pCO2 at Pt Temp ABG pO2 at Pt Temp ABG HCO3 ABG O2 Sat (Measured) ABG O2 Content ABG Base Excess Leo Test O2 Delivery Device Oxygen Flow Rate PEEP Sodium 140 Potassium 4.0 Chloride 105 Carbon Dioxide 23 Anion Gap 12 BUN 15 Creatinine 1.3 Creat Clearance w eGFR 55.40 POC Glucometer Random Glucose 166 H D Lactic Acid Calcium 8.3 L Total Bilirubin 0.5 AST 27 D ALT 31 D Alkaline Phosphatase 53 D Troponin I Total Protein 6.1 L Albumin 3.1 L Blood Type Antibody Screen Crossmatch 01/09/17 01/09/17 01/10/17 06:00 12:03 06:00 WBC 18.3 H RBC 3.84 L Hgb 9.4 L Hct 28.1 L MCV 73.2 L MCHC 33.3 RDW 24.2 H Plt Count 218 MPV 8.2 Neutrophils % 86.6 H Lymphocytes % 7.9 L D Monocytes % 4.9 Eosinophils % 0.4 D Basophils % 0.2 Platelet Estimate Platelet Comment Polychromasia Hypochromic-Microcytic Anisocytosis Microcytosis Target Cells INR PTT (Actin FS) Puncture Site ABG pH ABG pCO2 at Pt Temp ABG pO2 at Pt Temp ABG HCO3 ABG O2 Sat (Measured) ABG O2 Content ABG Base Excess Leo Test O2 Delivery Device Oxygen Flow Rate PEEP Sodium 138 Potassium 4.0 Chloride 101 Carbon Dioxide 25 Anion Gap 12 BUN 14 Creatinine 1.2 Creat Clearance w eGFR > 60 POC Glucometer 158 Random Glucose 152 H Lactic Acid Calcium 8.5 Total Bilirubin 1.0 D AST 20 D ALT 25 Alkaline Phosphatase 47 Troponin I Total Protein 6.1 L Albumin 3.1 L Blood Type Antibody Screen Crossmatch 01/10/17 01/11/17 01/11/17 06:00 06:00 06:00 WBC 19.2 H RBC 4.28 Hgb 10.3 L Hct 31.8 L MCV 74.3 L MCHC 32.4 RDW 24.4 H Plt Count 276 D MPV 8.4 Neutrophils % 89.4 H Lymphocytes % 6.4 L Monocytes % 3.9 Eosinophils % 0.1 Basophils % 0.2 Platelet Estimate Platelet Comment Polychromasia Hypochromic-Microcytic Anisocytosis Microcytosis Target Cells INR PTT (Actin FS) Puncture Site ABG pH ABG pCO2 at Pt Temp ABG pO2 at Pt Temp ABG HCO3 ABG O2 Sat (Measured) ABG O2 Content ABG Base Excess Leo Test O2 Delivery Device Oxygen Flow Rate PEEP Sodium 138 136 Potassium 3.8 3.4 L Chloride 100 96 L Carbon Dioxide 26 28 Anion Gap 12 12 BUN 10 D 14 D Creatinine 0.9 D 1.1 D Creat Clearance w eGFR > 60 > 60 POC Glucometer Random Glucose 124 H 151 H D Lactic Acid Calcium 8.9 9.2 Total Bilirubin 0.9 0.9 AST 19 17 ALT 20 21 Alkaline Phosphatase 52 59 Troponin I Total Protein 6.3 L 7.1 Albumin 3.0 L 3.2 L Blood Type Antibody Screen Crossmatch 01/11/17 01/11/17 01/11/17 16:35 16:47 17:10 WBC RBC Hgb Hct MCV MCHC RDW Plt Count MPV Neutrophils % Lymphocytes % Monocytes % Eosinophils % Basophils % Platelet Estimate Platelet Comment Polychromasia Hypochromic-Microcytic Anisocytosis Microcytosis Target Cells INR PTT (Actin FS) Puncture Site ABG pH ABG pCO2 at Pt Temp ABG pO2 at Pt Temp ABG HCO3 ABG O2 Sat (Measured) ABG O2 Content ABG Base Excess Leo Test O2 Delivery Device Oxygen Flow Rate PEEP Sodium Potassium Chloride Carbon Dioxide Anion Gap BUN Creatinine Creat Clearance w eGFR POC Glucometer 181 Random Glucose Lactic Acid 1.3 Calcium Total Bilirubin AST ALT Alkaline Phosphatase Troponin I < 0.02 Total Protein Albumin Blood Type Antibody Screen Crossmatch 01/11/17 19:10 WBC RBC Hgb Hct MCV MCHC RDW Plt Count MPV Neutrophils % Lymphocytes % Monocytes % Eosinophils % Basophils % Platelet Estimate Platelet Comment Polychromasia Hypochromic-Microcytic Anisocytosis Microcytosis Target Cells INR PTT (Actin FS) Puncture Site Right radial ABG pH 7.44 ABG pCO2 at Pt Temp 40.7 ABG pO2 at Pt Temp 89.4 ABG HCO3 27.5 H ABG O2 Sat (Measured) 97.3 ABG O2 Content 13.5 L ABG Base Excess 3.6 H Leo Test Positive O2 Delivery Device N/c Oxygen Flow Rate 3l PEEP 0.0 Sodium Potassium Chloride Carbon Dioxide Anion Gap BUN Creatinine Creat Clearance w eGFR POC Glucometer Random Glucose Lactic Acid Calcium Total Bilirubin AST ALT Alkaline Phosphatase Troponin I Total Protein Albumin Blood Type Antibody Screen Crossmatch Imaging - Results Chest X-ray: Pending EKG: Image Reviewed (AF with rapid ventricular response of 170) Problem List - Problems (1) Anemia Code(s): D64.9 - ANEMIA, UNSPECIFIED Qualifiers: Anemia type: iron deficiency (2) Anemia due to acute blood loss Code(s): D62 - ACUTE POSTHEMORRHAGIC ANEMIA (3) Bladder cancer Code(s): C67.9 - MALIGNANT NEOPLASM OF BLADDER, UNSPECIFIED Qualifiers: Bladder location: overlapping sites Qualified Code(s): C67.8 - Malignant neoplasm of overlapping sites of bladder (4) Bladder tumor Code(s): D49.4 - NEOPLASM OF UNSPECIFIED BEHAVIOR OF BLADDER (5) Gross hematuria Code(s): R31.0 - GROSS HEMATURIA (6) HTN (hypertension) Code(s): I10 - ESSENTIAL (PRIMARY) HYPERTENSION Qualifiers: Hypertension type: essential hypertension Qualified Code(s): I10 - Essential (primary) hypertension (7) Hematuria Code(s): R31.9 - HEMATURIA, UNSPECIFIED (8) Neoplasm of appendix Code(s): D49.0 - NEOPLASM OF UNSPECIFIED BEHAVIOR OF DIGESTIVE SYSTEM (9) Post-operative hemorrhage Code(s): GFW7860 - Qualifiers: Procedure type: genitourinary (10) Renal failure Code(s): N19 - UNSPECIFIED KIDNEY FAILURE Assessment/Plan new onset of AF with RVR post op day #3 leukocytosis s/p ca apendix/colon removal s/p hemicolectomy htn r/o PE anemia Plan; AC with heparin transfer to icu IV cardizem increase a drip up to 20cc/hr if BP tolerates IV lopressor 5 mg IVP q 2-4 hrs PRN for hr >120 If patient becomes hypotensive will start Amiodarone loading r/o PE with CTA consider ID consult ? leukocytosis r/o sepsis ECHO in AM d/w resident dr. Reed cc time spent 90 min
[2017-01-11] MEDS ORDERED: METOPROLOL TARTRATE 5 MG/5 ML VIAL IVPUSH PRN (19:38)
[2017-01-11] MEDS: HEPARIN - 25,000 UNIT in SODIUM CHLORIDE 495 ML IV SCH (19:48)
[2017-01-11 20:48] LABS: MCH 23.8 pg (25.7-33.7); MEAN CELL VOLUME 74.3 fl (80-96); MEAN PLT VOLUME 8.8 fl (7.5-11.1); PLATELET COUNT 279 K/MM3 (134-434); RDW 24.9 % (11.9-15.9); WHITE BLOOD COUNT 18.8 K/mm3 (4.0-10.0)
[2017-01-11 21:25] LABS: CALCIUM 8.8 mg/dL (8.5-10.1); COCKROFT - GAULT 106.41; CREATININE 0.9 mg/dL (0.7-1.3); MAGNESIUM 2.7 mg/dL (1.8-2.4); PHOSPHOROUS 3.8 mg/dL (2.5-4.9)
[2017-01-11 21:27] LABS: TROPONIN I < 0.02 ng/ml (0.00-0.05)
[2017-01-11 21:29] LABS: ANISOCYTOSIS 2+; HYPOCHROMIA 1+; MICROCYTOSIS 1+; PLATELET ESTIMATE ADEQUATE (NORMAL); POLYCHROMASIA FEW
[2017-01-11 22:07] LABS: URINE APPEARANCE CLEAR; URINE BILIRUBIN NEGATIVE (NEGATIVE); URINE COLOR LTYELLOW; URINE GLUCOSE (UA) 3+ (NEGATIVE); URINE KETONE TRACE (NEGATIVE); URINE LEUK ESTERASE NEGATIVE (NEGATIVE); URINE NITRITE NEGATIVE (NEGATIVE); URINE UROBILINOGEN NEGATIVE E.U./dl (0.2-1.0)
[2017-01-11 22:09] LABS: URINE BLOOD 2+ (NEGATIVE); URINE PROTEIN 2+ (NEGATIVE)
[2017-01-11 22:11] LABS: URINE MUCUS RARE; URINE RBC 36 /hpf (0-3); URINE WBC 1 /hpf (3-5)
--- NOTE | 2017-01-12 01:05 | HOSP ---
Subjective - Review of Symptoms Events since last encounter: Mr Teixeira, 3 day post right hemicolectomy with sudden onset of AFIB with RVR, which is now controlled on Cardizem drip and Metoprolol 5mg IV prn. CT Chest and abdomen was done, CT chest showed no PE, but showed esophagitis and lung nodules. CT Abdomen and pelvis showed Penumperitoneum, Moderately dilated jejunum with compressed distal small bowel suspicious for high grade small bowel obstruction, closed loop obstruction or volvulus. Impression High grade SBO r/o Volvulus or Malrotation Pneumoperitoneum likely post op changes Plan Case discussed with Dr Harmon and he was made aware of CT chest result and CT abdomen/Pelvis results. Continue NPO NG tube at LIS Flagyl IV 500mg q8h Repeat Lactic acid Cardiovascular: No: Chest Pain, Palpitations, Orthopnea, Light Headedness Gastrointestinal: No: Nausea, Vomiting, Abdominal Pain Physical Examination Vital Signs: Vital Signs Temperature 99 F 01/11/17 21:00 Pulse Rate 85 01/11/17 21:00 Respiratory Rate 18 01/11/17 21:00 Blood Pressure 122/77 01/11/17 21:00 O2 Sat by Pulse Oximetry (%) 96 01/11/17 21:00 Constitutional: Yes: No Distress, Calm Cardiovascular: Yes: Pulse Irregular, S1, S2 Respiratory: Yes: Regular, CTA Bilaterally Gastrointestinal: Yes: Soft, Distention, Tenderness (right upper quadrant), Other (hypoactive bowel sound Vertical surgical scar well approximated with faby, no bleeding, oozing or erthema. mild tenderness aound surgical site.) Musculoskeletal: Yes: WNL Extremities: Yes: WNL Edema: No Peripheral Pulses WNL: Yes Wound/Incision: Yes: Well Approximated, [place] Intact, Open to air Neurological: Yes: Alert, Oriented ...Motor Strength: WNL Psychiatric: Yes: Alert, Oriented Labs: CBC, BMP 01/11/17 19:50 01/11/17 19:50 Visit type - Emergency Visit Emergency Visit: Yes ED Registration Date: 01/11/17 Care time: The patient presented to the Emergency Department on the above date and was hospitalized for further evaluation of their emergent condition. - New Patient This patient is new to me today: Yes Date on this admission: 01/12/17 - Critical Care Critical Care patient: No
[2017-01-12] MEDS: METRONIDAZOLE 500 MG PREMIXED 100 ML IVPB SCH ×3 (03:15→17:10)
[2017-01-12] MEDS: HYDROmorphone HCL CARPU-JECT 2 MG/1 ML DISP.SYRIN IVPB PRN (06:05)
[2017-01-12] MEDS: ONDANSETRON 4 MG/2 ML VIAL IVPB PRN (07:22)
[2017-01-12 07:38] LABS: BASOPHIL 0.3 % (0-2.0); EOSINOPHIL 0.3 % (0-4.5); MCH 24.3 pg (25.7-33.7); MCHC 27.8 g/dl (32.0-35.9); MEAN CELL VOLUME 87.3 fl (80-96); MEAN PLT VOLUME 8.1 fl (7.5-11.1); NEUTROPHILS 87.5 % (42.8-82.8); PLATELET COUNT 204 K/MM3 (134-434); RDW 25.2 % (11.9-15.9); WHITE BLOOD COUNT 11.5 K/mm3 (4.0-10.0)
--- NOTE | 2017-01-12 09:10 | PN ---
Progress Note, Physician - Current Medication List Current Medications: Active Medications Heparin Sodium (Porcine) (Heparin -) 1,000 unit IVPUSH PRN PRN PRN Reason: Heparin Heparin Sodium (Porcine) (Heparin -) 5,000 unit IVPUSH PRN PRN PRN Reason: Heparin Last Admin: 01/12/17 03:15 Dose: 5,000 unit Hydromorphone HCl (Dilaudid Svp Monetization -) 0 mg PING PONG TABLE ASSEMBLER PING PONG TABLE ASSEMBLER JAKE PRN Reason: Protocol Stop: 01/12/17 13:56 Last Admin: 01/10/17 16:57 Dose: Not Given Hydromorphone HCl (Dilaudid Injection -) 2 mg IVPB Q4H PRN PRN Reason: PAIN Last Admin: 01/12/17 06:05 Dose: 2 mg Levofloxacin (Levaquin 500 Mg Premixed Ivpb -) 100 mls @ 100 mls/hr IVPB DAILY JAKE Last Admin: 01/11/17 17:23 Dose: 100 mls/hr Potassium Chloride/Dextrose/Sod Cl (D5-1/2ns+20 Meq Kcl -) 1,000 mls @ 83 mls/ hr IV ASDIR JAKE Last Admin: 01/11/17 17:21 Dose: 83 mls/hr Diltiazem HCl 125 mg/ Dextrose 125 mls @ 5 mls/hr IVPB TITR JAKE; 5 MG/HR PRN Reason: Protocol Last Titration: 01/11/17 19:49 Dose: 20 mg/hr Heparin Sodium (Porcine) 25, (000 unit/ Sodium Chloride) 500 mls @ 20 mls/hr IV TITR JAKE; 1,000 UNIT/HR PRN Reason: Protocol Last Titration: 01/12/17 03:15 Dose: 1,150 unit/hr Metronidazole (Flagyl 500mg Premixed Ivpb -) 100 mls @ 100 mls/hr IVPB Q8H-IV JAKE Last Admin: 01/12/17 03:15 Dose: 100 mls/hr Metoprolol Tartrate (Lopressor Injection -) 5 mg IVPUSH Q4H PRN PRN Reason: HYPERTENSION Last Admin: 01/11/17 19:59 Dose: 5 mg Ondansetron HCl (Zofran Injection) 4 mg IVPB Q6H PRN PRN Reason: NAUSEA AND/OR VOMITING Last Admin: 01/11/17 15:54 Dose: 4 mg - Objective Vital Signs: Vital Signs Temperature 98.2 F 01/12/17 08:00 Pulse Rate 92 H 01/12/17 08:00 Respiratory Rate 16 01/12/17 08:00 Blood Pressure 134/88 01/12/17 08:00 O2 Sat by Pulse Oximetry (%) 96 01/11/17 21:00 Labs: CBC, BMP 01/12/17 05:35 01/12/17 05:35 INR, PTT INR 1.04 (0.82-1.09) 01/07/17 21:30 Assessment/Plan Surgery: Patient is afebrile. He is awake., alert . oriented. Denies any abdominal pain. Some bloody drainage noted from abdominal wound, not foul smelling. Swab sent [place] culture [place] [address]. Abdomen is soft , not tender. CT scan reviewed. NG tube draining bilious material. Will start TPN.
[2017-01-12 09:37] LABS: ALBUMIN 2.7 g/dl (3.4-5.0); ALK PHOS 53 U/L (45-117); ANION GAP 12 (8-16); BILIRUBIN,TOTAL 0.6 mg/dL (0.2-1.0); CALCIUM 8.6 mg/dL (8.5-10.1); CO2 27 mmol/L (21-32); COCKROFT - GAULT 106.41; CREATININE 0.9 mg/dL (0.7-1.3); GLUCOSE,RANDOM 185 mg/dL (74-106); SGOT/AST 10 U/L (15-37); SGPT/ALT 16 U/L (12-78); TOT PROT 6.4 g/dl (6.4-8.2)
--- NOTE | 2017-01-12 09:46 | PN ---
Progress Note, Physician Chief Complaint: s/p hemicolectomy spoke with Dr Harmon Has new onset Afib-- noted drop in HCT , on Heparin drip, Cardizem drip ordered PRBC pt is awake, no distress NPO feels anxious, hasn't slept--wants something for anxiety no blood in urine , voiding fine is at bedside - Current Medication List Current Medications: Active Medications Heparin Sodium (Porcine) (Heparin -) 1,000 unit IVPUSH PRN PRN PRN Reason: Heparin Heparin Sodium (Porcine) (Heparin -) 5,000 unit IVPUSH PRN PRN PRN Reason: Heparin Last Admin: 01/12/17 03:15 Dose: 5,000 unit Hydromorphone HCl (Dilaudid Pick Up Driver -) 0 mg GAS FITTER APPRENTICE GAS FITTER APPRENTICE JAKE PRN Reason: Protocol Stop: 01/12/17 13:56 Last Admin: 01/10/17 16:57 Dose: Not Given Hydromorphone HCl (Dilaudid Injection -) 2 mg IVPB Q4H PRN PRN Reason: PAIN Last Admin: 01/12/17 06:05 Dose: 2 mg Levofloxacin (Levaquin 500 Mg Premixed Ivpb -) 100 mls @ 100 mls/hr IVPB DAILY JAKE Last Admin: 01/11/17 17:23 Dose: 100 mls/hr Potassium Chloride/Dextrose/Sod Cl (D5-1/2ns+20 Meq Kcl -) 1,000 mls @ 83 mls/ hr IV ASDIR JAKE Last Admin: 01/11/17 17:21 Dose: 83 mls/hr Diltiazem HCl 125 mg/ Dextrose 125 mls @ 5 mls/hr IVPB TITR JAKE; 5 MG/HR PRN Reason: Protocol Last Titration: 01/11/17 19:49 Dose: 20 mg/hr Heparin Sodium (Porcine) 25, (000 unit/ Sodium Chloride) 500 mls @ 20 mls/hr IV TITR JAKE; 1,000 UNIT/HR PRN Reason: Protocol Last Titration: 01/12/17 03:15 Dose: 1,150 unit/hr Metronidazole (Flagyl 500mg Premixed Ivpb -) 100 mls @ 100 mls/hr IVPB Q8H-IV JAKE Last Admin: 01/12/17 03:15 Dose: 100 mls/hr Amino Acids (Clinimix -) 1,000 mls @ 42 mls/hr IV Q23H JAKE Metoprolol Tartrate (Lopressor Injection -) 5 mg IVPUSH Q4H PRN PRN Reason: HYPERTENSION Last Admin: 01/11/17 19:59 Dose: 5 mg Ondansetron HCl (Zofran Injection) 4 mg IVPB Q6H PRN PRN Reason: NAUSEA AND/OR VOMITING Last Admin: 01/11/17 15:54 Dose: 4 mg - Objective Vital Signs: Vital Signs Temperature 98.2 F 01/12/17 08:00 Pulse Rate 92 H 01/12/17 08:00 Respiratory Rate 16 01/12/17 08:00 Blood Pressure 134/88 01/12/17 08:00 O2 Sat by Pulse Oximetry (%) 96 01/11/17 21:00 Constitutional: Yes: Anxious, Pallor (wound clean, staple in place) Cardiovascular: Yes: Pulse Irregular Respiratory: Yes: CTA Bilaterally Gastrointestinal: Yes: Soft, Other. No: Normal Bowel Sounds, Distention Edema: No Labs: CBC, BMP 01/12/17 05:35 01/12/17 09:07 INR, PTT INR 1.04 (0.82-1.09) 01/07/17 21:30 Problem List - Problems (1) Anemia due to acute blood loss Code(s): D62 - ACUTE POSTHEMORRHAGIC ANEMIA (2) Bladder cancer Code(s): C67.9 - MALIGNANT NEOPLASM OF BLADDER, UNSPECIFIED Qualifiers: Bladder location: overlapping sites Qualified Code(s): C67.8 - Malignant neoplasm of overlapping sites of bladder (3) HTN (hypertension) Code(s): I10 - ESSENTIAL (PRIMARY) HYPERTENSION Qualifiers: Hypertension type: essential hypertension Qualified Code(s): I10 - Essential (primary) hypertension (4) New onset a-fib Code(s): I48.91 - UNSPECIFIED ATRIAL FIBRILLATION (5) Rapid atrial fibrillation Code(s): I48.91 - UNSPECIFIED ATRIAL FIBRILLATION Assessment/Plan PLAN Events noted spoke to Dr Harmon Pt transferred to ICU-- on Cardizem drip and Heparin infusion for new onset Afib Pt will be transfused today Check Stool guaic on IV antibiotics-- cultures done and are pending CTA-- negative for PE Doppler negative for DVT Ct abd/pelvis-- partial SBO, pneumoperitoneum-- as per Dr Harmon , this is usual after post op , he removed two faby today, some oozing noted, pt on NG tube to suction Keep NPO Ativan prn for anxiety repeat CBC in evening pain control Incentive spirometry
[2017-01-12] MEDS: LEVOFLOXACIN 500 MG IVPB 100 ML IVPB SCH (10:10)
[2017-01-12] MEDS: HEPARIN - 25,000 UNIT in SODIUM CHLORIDE 495 ML IV SCH (10:11)
[2017-01-12] MEDS ORDERED: LORAZEPAM CARPU-JECT 2 MG/ML DISP.SYRIN IVPUSH PRN (11:18)
--- NOTE | 2017-01-12 12:11 | CONSULT ---
Consultation: REQUESTING PROVIDER: KIARA CONSULT REQUEST: We have been asked to medically evaluate this patient for Atrial fibrillation. HISTORY OF PRESENT ILLNESS: Patient is a 66 year old male with PMH of Bladder Cancer & HTN who presented to ED on 01/07. Patient was scheduled for outpatient surgery for tumor removal of his appendix and small bowel on 01/08 but anemia was noted on pre-op labs. 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 On 01/09, patient developed leukocytosis of 20,000 but was otehrwise feeling well. He had a small bowel movement and was starting to pass "little" flatus. Patient was kept NPO & followed by surgery. On 01/11, patient's HR noted to be in 170's. Given adenosine 6mg & EKG taken showed Atrial fibrillation w/ RVR. Patient was started on IV Cardizem drip with Lopressor PRN IV pushes. HR controlled with meds & patient was noted to be in sinus rhythm. CT Chest taken 01/11: Esophagitis, Pulmonary nodules (negative for PE) CT Abdomen taken 01/11: Pneumoperitoneum, moderately dilated jejunum with compressed partial SBO Allergies Allergy/AdvReac Type Severity Reaction Status Date / Time No Known Drug Allergies Allergy Verified 12/02/16 07:54 REVIEW OF SYSTEMS: CONSTITUTIONAL: Absent: fever, chills, diaphoresis, generalized weakness, malaise, loss of appetite, weight change HEENT: Absent: rhinorrhea, nasal congestion, throat pain, throat swelling, difficulty swallowing, mouth swelling, ear pain, eye pain, visual changes CARDIOVASCULAR: Absent: chest pain, syncope, palpitations, irregular heart rate, lightheadedness , peripheral edema RESPIRATORY: Absent: cough, shortness of breath, dyspnea with exertion, orthopnea, wheezing, stridor, hemoptysis GASTROINTESTINAL: (+)nausea, abdominal distension, Absent: abdominal pain, vomiting, diarrhea, melena, hematochezia GENITOURINARY: Absent: dysuria, frequency, urgency, hesitancy, hematuria, flank pain, genital pain MUSCULOSKELETAL: Absent: myalgia, arthralgia, joint swelling, back pain, neck pain SKIN: Absent: rash, itching, pallor HEMATOLOGIC/IMMUNOLOGIC: Absent: easy bleeding, easy bruising, lymphadenopathy, frequent infections ENDOCRINE: Absent: unexplained weight gain, unexplained weight loss, heat intolerance, cold intolerance NEUROLOGIC: Absent: headache, focal weakness or paresthesias, dizziness, unsteady gait, seizure, mental status changes, bladder or bowel incontinence PSYCHIATRIC: Absent: anxiety, depression, suicidal or homicidal ideation, hallucinations. PHYSICAL EXAMINATION Vital Signs - 24 hr 01/11/17 01/11/17 01/11/17 17:00 17:10 17:57 Temperature Pulse Rate 160 H 150 H Respiratory Rate Blood Pressure 118/87 120/70 O2 Sat by Pulse 95 Oximetry (%) 01/11/17 01/11/17 01/11/17 18:00 19:04 19:15 Temperature 99.1 F Pulse Rate 138 H 150 H 164 H Respiratory 22 Rate Blood Pressure 124/72 114/60 119/86 O2 Sat by Pulse Oximetry (%) 01/11/17 01/11/17 01/11/17 19:49 19:59 21:00 Temperature 99 F Pulse Rate 166 H 159 H 159 H Respiratory 22 Rate Blood Pressure 123/72 121/80 122/77 O2 Sat by Pulse 96 Oximetry (%) 01/12/17 01/12/17 01/12/17 02:00 06:08 08:00 Temperature 97.4 F L 98.7 F 98.2 F Pulse Rate 97 H 97 H 92 H Respiratory 20 20 16 Rate Blood Pressure 161/67 154/90 134/88 O2 Sat by Pulse Oximetry (%) GENERAL: Awake, alert, and fully oriented, in no acute distress. Mildly tender in abdomen when moving around in bed. HEENT: Atraumatic, EOMI, PERRLA, Mild conjunctival pallor, no lymphadenopathy. LUNGS: Breath sounds equal, clear to auscultation bilaterally. No wheezes, and no crackles. No accessory muscle use. HEART: Regular rate and rhythm, normal S1 and S2 without murmur, rub or gallop. ABDOMEN: Soft, mildly tender to palpation around surgical incision site, mildly distended abdomen. Hypoactive-Normal bowel sounds. No discharge or erythema at surgical site. EXTREMITIES: 2+ pulses, warm, well-perfused. No calf tenderness. No peripheral edema. NEUROLOGICAL: Cranial nerves II-XII intact. Normal speech. Normal gait. PSYCHIATRIC: Cooperative. Good eye contact. Appropriate mood and affect. SKIN: Warm, dry, normal turgor, no rashes or lesions noted. Laboratory Results 01/11/17 01/11/17 01/11/17 19:10 19:50 19:50 WBC RBC Hgb Hct MCV MCHC RDW Plt Count MPV Neutrophils % Lymphocytes % Monocytes % Eosinophils % Basophils % Platelet Estimate Platelet Comment Polychromasia Hypochromic-Microcytic Anisocytosis Microcytosis PTT (Actin FS) Puncture Site Right radial ABG pH 7.44 ABG pCO2 at Pt Temp 40.7 ABG pO2 at Pt Temp 89.4 ABG HCO3 27.5 H ABG O2 Sat (Measured) 97.3 ABG O2 Content 13.5 L ABG Base Excess 3.6 H Leo Test Positive O2 Delivery Device N/c Oxygen Flow Rate 3l PEEP 0.0 Sodium 138 Potassium 3.7 Chloride 101 Carbon Dioxide 28 Anion Gap 9 BUN 18 D Creatinine 0.9 Creat Clearance w eGFR POC Glucometer Random Glucose 169 H Lactic Acid 0.9 Calcium 8.8 Phosphorus 3.8 Magnesium 2.7 H Total Bilirubin AST ALT Alkaline Phosphatase Creatine Kinase Troponin I Total Protein Albumin Urine Color Urine Appearance Urine pH Urine Protein Urine Glucose (UA) Urine Ketones Urine Blood Urine Nitrite Urine Bilirubin Urine Urobilinogen Ur Leukocyte Esterase Urine RBC Urine WBC Ur Epithelial Cells Urine Mucus Blood Type Antibody Screen Crossmatch 01/11/17 01/11/17 01/11/17 19:50 19:50 21:00 WBC 18.8 H RBC 4.10 Hgb 9.7 L Hct 30.5 L MCV 74.3 L MCHC 32.0 RDW 24.9 H Plt Count 279 MPV 8.8 Neutrophils % Lymphocytes % Monocytes % Eosinophils % Basophils % Platelet Estimate Adequate Platelet Comment No clumping noted Polychromasia Few Hypochromic-Microcytic 1+ Anisocytosis 2+ Microcytosis 1+ PTT (Actin FS) Puncture Site ABG pH ABG pCO2 at Pt Temp ABG pO2 at Pt Temp ABG HCO3 ABG O2 Sat (Measured) ABG O2 Content ABG Base Excess Leo Test O2 Delivery Device Oxygen Flow Rate PEEP Sodium Potassium Chloride Carbon Dioxide Anion Gap BUN Creatinine Creat Clearance w eGFR POC Glucometer Random Glucose Lactic Acid Calcium Phosphorus Magnesium Total Bilirubin AST ALT Alkaline Phosphatase Creatine Kinase 109 Troponin I < 0.02 Total Protein Albumin Urine Color Ltyellow Urine Appearance Clear Urine pH 5.0 D Urine Protein 2+ H Urine Glucose (UA) 3+ H Urine Ketones Trace H Urine Blood 2+ H Urine Nitrite Negative Urine Bilirubin Negative Urine Urobilinogen Negative Ur Leukocyte Esterase Negative Urine RBC 36 Urine WBC 1 Ur Epithelial Cells Rare Urine Mucus Rare Blood Type Antibody Screen Crossmatch 01/12/17 01/12/17 01/12/17 01:30 01:30 05:35 WBC 11.5 H D RBC 2.82 L D Hgb 6.8 L* D Hct 24.6 L D MCV 87.3 MCHC 27.8 L RDW 25.2 H Plt Count 204 D MPV 8.1 Neutrophils % 87.5 H Lymphocytes % 4.9 L D Monocytes % 7.0 Eosinophils % 0.3 D Basophils % 0.3 Platelet Estimate Platelet Comment Polychromasia Hypochromic-Microcytic Anisocytosis Microcytosis PTT (Actin FS) 33.4 Puncture Site ABG pH ABG pCO2 at Pt Temp ABG pO2 at Pt Temp ABG HCO3 ABG O2 Sat (Measured) ABG O2 Content ABG Base Excess Leo Test O2 Delivery Device Oxygen Flow Rate PEEP Sodium Potassium Chloride Carbon Dioxide Anion Gap BUN Creatinine Creat Clearance w eGFR POC Glucometer Random Glucose Lactic Acid 1.0 Calcium Phosphorus Magnesium Total Bilirubin AST ALT Alkaline Phosphatase Creatine Kinase Troponin I Total Protein Albumin Urine Color Urine Appearance Urine pH Urine Protein Urine Glucose (UA) Urine Ketones Urine Blood Urine Nitrite Urine Bilirubin Urine Urobilinogen Ur Leukocyte Esterase Urine RBC Urine WBC Ur Epithelial Cells Urine Mucus Blood Type Antibody Screen Crossmatch 01/12/17 09:07 WBC RBC Hgb Hct MCV MCHC RDW Plt Count MPV Neutrophils % Lymphocytes % Monocytes % Eosinophils % Basophils % Platelet Estimate Platelet Comment Polychromasia Hypochromic-Microcytic Anisocytosis Microcytosis PTT (Actin FS) Puncture Site ABG pH ABG pCO2 at Pt Temp ABG pO2 at Pt Temp ABG HCO3 ABG O2 Sat (Measured) ABG O2 Content ABG Base Excess Leo Test O2 Delivery Device Oxygen Flow Rate PEEP Sodium 140 Potassium 3.5 Chloride 101 Carbon Dioxide 27 Anion Gap 12 BUN 16 Creatinine 0.9 Creat Clearance w eGFR > 60 POC Glucometer Random Glucose 185 H Lactic Acid Calcium 8.6 Phosphorus Magnesium Total Bilirubin 0.6 D AST 10 L D ALT 16 D Alkaline Phosphatase 53 Creatine Kinase Troponin I Total Protein 6.4 Albumin 2.7 L Urine Color Urine Appearance Urine pH Urine Protein Urine Glucose (UA) Urine Ketones Urine Blood Urine Nitrite Urine Bilirubin Urine Urobilinogen Ur Leukocyte Esterase Urine RBC Urine WBC Ur Epithelial Cells Urine Mucus Blood Type Antibody Screen Crossmatch Active Medications Generic Name Dose Route Start Last Admin Trade Name Dajuan PRN Reason Stop Dose Admin Hydromorphone HCl 2 mg 01/09/17 18:28 01/12/17 06:05 Dilaudid Injection - IVPB 2 mg Q4H PRN Administration PAIN Levofloxacin 100 mls @ 100 mls/hr 01/11/17 16:50 01/12/17 10:10 Levaquin 500 Mg Premixed Ivpb - IVPB 100 mls/hr DAILY JAKE Administration Potassium Chloride/Dextrose/Sod Cl 1,000 mls @ 83 mls/hr 01/11/17 17:15 17:21 D5-1/2ns+20 Meq Kcl - IV 83 mls/hr ASDIR JAKE Administration Diltiazem HCl 125 mg/ Dextrose 125 mls @ 5 mls/hr 01/11/17 17:45 01/11/17 19:49 IVPB 20 mg/hr TITR JAKE Titration Protocol 5 MG/HR Metronidazole 100 mls @ 100 mls/hr 01/12/17 02:00 01/12/17 12:49 Flagyl 500mg Premixed Ivpb - IVPB 100 mls/hr Q8H-IV JAKE Administration Amino Acids 1,000 mls @ 42 mls/hr 01/12/17 09:15 01/12/17 12:50 Clinimix - IV Not Given Q23H JAKE Potassium Chloride 100 mls @ 100 mls/hr 01/12/17 13:45 Potassium Chloride 10 Meq Premix Ivpb - IVPB 01/12/17 16:44 Q60M JAKE Lorazepam 0.5 mg 01/12/17 11:18 01/12/17 12:03 Ativan Injection - IVPUSH 0.5 mg Q6H PRN Administration ANXIETY Metoprolol Tartrate 5 mg 01/12/17 14:00 Lopressor Injection - IVPUSH Q4H JAKE Ondansetron HCl 4 mg 01/11/17 00:06 01/12/17 07:22 Zofran Injection IVPB 4 mg Q6H PRN Administration NAUSEA AND/OR VOMITING ASSESSMENT/PLAN: 66 year old male with PMH of Bladder Cancer & HTN who presented to ED on 5/25, was transfused 2 units PRBC & underwent right hemicolectomy the following day to 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 Patient subsequently developed A- Fib with RVR. Rate controlled & returned to sinus rhythm on cardizem drip & lopressor PRN. #Right Hemicolectomy, POD #4 -keep NPO as per surgery -continue IV antibiotics, Levaquin & Flagyl -surgery following -ID Consult appreciated -Dilaudid pain management -Zofran for nausea -Incentive spirometry -IVF D5-1/2ns+20 Meq Kcl @83cc/hr for hydration #A-Fibrillation w/ RVR -currently in sinus rhythm -rate controlled on cardizem drip, will start to taper -Lopressor 5MG IVPUSH Q4H -Ativan ordered for episodic anxiety -ECHO for later today #Anemia -received 2 units on admission, 1 more unit PRBC ordered today -stool for occult blood ordered #Hypokalemia -ordered 3 riders KCl for today -will continue to trend Prophylaxis -No AC needed (in sinus rhythm) -no PPI indicated -IVF, as above -ordered 3 riders Potassium, monitor electrolytes -Clinimix @42cc/hr for 1 bag Dispo: We will continue to follow the patient. Thank you for this consultative opportunity. Visit type - Emergency Visit Emergency Visit: Yes ED Registration Date: 01/11/17 Care time: The patient presented to the Emergency Department on the above date and was hospitalized for further evaluation of their emergent condition. - New Patient This patient is new to me today: Yes Date on this admission: 01/12/17 - Critical Care Critical Care patient: Yes Total Critical Care Time (in minutes): 45 Critical Care Statement: The care of this patient involved high complexity decision making to prevent further life threatening deterioration of the patient 's condition and/or to evalute & treat vital organ system(s) failure or risk of failure.
[2017-01-12 12:19] LABS: FRAGMENTED CELL 2+; HYPOCHROMIA 2+; MICROCYTOSIS 1+; POLYCHROMASIA 1+
--- NOTE | 2017-01-12 12:21 | PN ---
Progress Note, Physician Chief Complaint: Pt was very anxious earlier; now calm (after Ativan). History of Present Illness: The patient is a 66-year-old man, accompanied by , with a significant past medical history of hypertension and bladder Ca who presents to the emergency department via EMS for further evaluation of hematuria. He underwent a cystoscopy for in May- no chemotherapy/radiation since. He admits that he has been experiencing intermittent episodes of hematuria since August. His episodes are described as noted light pink urine without clots. However, over the past 3 weeks, he notes that his hematuria has worsen as it has become heavier,with noted dark urine and clots. He also notes that his symptoms are associated with headaches and lightheadedness and chills. He also notes that his lightheadedness is exacerbated on exertion (when walking). He denies fever, cough, shortness of breath , chest pain, palpitations, neck pain, leg pain, abdominal pain, nausea, vomiting, diarrhea, dysuria, flank pain, urinary hesitancy, urgency, frequency, penile discharge, testicular pain. He has a surgery scheduled for 12/04/[address] Harmon for tumor removal of his appendix and small bowel - patient refused. Allergies: No Known Drug Allergies Past Surgical History: Cystoscopy- 05/31. 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 Social History: No tobacco, ETOH and recreational drug use. Primary Care Physician: Dr. Mehdi Alonso [phone] Optometry Teacher: Dr. Roberto Patel [phone] - Current Medication List Current Medications: Active Medications Heparin Sodium (Porcine) (Heparin -) 1,000 unit IVPUSH PRN PRN PRN Reason: Heparin Last Admin: 01/12/17 10:11 Dose: 1,000 unit Heparin Sodium (Porcine) (Heparin -) 5,000 unit IVPUSH PRN PRN PRN Reason: Heparin Last Admin: 01/12/17 03:15 Dose: 5,000 unit Hydromorphone HCl (Dilaudid Proposal Editor -) 0 mg TRACTOR TECHNICIAN TRACTOR TECHNICIAN JAKE PRN Reason: Protocol Stop: 01/12/17 13:56 Last Admin: 01/10/17 16:57 Dose: Not Given Hydromorphone HCl (Dilaudid Injection -) 2 mg IVPB Q4H PRN PRN Reason: PAIN Last Admin: 01/12/17 06:05 Dose: 2 mg Levofloxacin (Levaquin 500 Mg Premixed Ivpb -) 100 mls @ 100 mls/hr IVPB DAILY JAKE Last Admin: 01/12/17 10:10 Dose: 100 mls/hr Potassium Chloride/Dextrose/Sod Cl (D5-1/2ns+20 Meq Kcl -) 1,000 mls @ 83 mls/ hr IV ASDIR JAKE Last Admin: 01/11/17 17:21 Dose: 83 mls/hr Diltiazem HCl 125 mg/ Dextrose 125 mls @ 5 mls/hr IVPB TITR JAKE; 5 MG/HR PRN Reason: Protocol Last Titration: 01/11/17 19:49 Dose: 20 mg/hr Heparin Sodium (Porcine) 25, (000 unit/ Sodium Chloride) 500 mls @ 20 mls/hr IV TITR JAKE; 1,000 UNIT/HR PRN Reason: Protocol Last Admin: 01/12/17 10:11 Dose: 25 mls/hr Metronidazole (Flagyl 500mg Premixed Ivpb -) 100 mls @ 100 mls/hr IVPB Q8H-IV JAKE Last Admin: 01/12/17 03:15 Dose: 100 mls/hr Amino Acids (Clinimix -) 1,000 mls @ 42 mls/hr IV Q23H JAKE Lorazepam (Ativan Injection -) 0.5 mg IVPUSH Q6H PRN PRN Reason: ANXIETY Last Admin: 01/12/17 12:03 Dose: 0.5 mg Metoprolol Tartrate (Lopressor Injection -) 5 mg IVPUSH Q4H PRN PRN Reason: HYPERTENSION Last Admin: 01/11/17 19:59 Dose: 5 mg Ondansetron HCl (Zofran Injection) 4 mg IVPB Q6H PRN PRN Reason: NAUSEA AND/OR VOMITING Last Admin: 01/12/17 07:22 Dose: 4 mg - Objective Vital Signs: Vital Signs Temperature 98.2 F 01/12/17 08:00 Pulse Rate 92 H 01/12/17 08:00 Respiratory Rate 16 01/12/17 08:00 Blood Pressure 134/88 01/12/17 08:00 O2 Sat by Pulse Oximetry (%) 96 01/11/17 21:00 Constitutional: Yes: Calm Eyes: Yes: WNL HENT: Yes: WNL Neck: Yes: WNL Cardiovascular: Yes: S1, S2, S4 Respiratory: Yes: Regular Gastrointestinal: Yes: Soft, Other (s/p hemicolectomy) ...Rectal Exam: Yes: Deferred Genitourinary: No: Anuria Musculoskeletal: Yes: Muscle Weakness Extremities: Yes: WNL Edema: No Peripheral Pulses WNL: Yes Integumentary: Yes: Incision Wound/Incision: Yes: Sutures Intact Neurological: Yes: Alert, Oriented Psychiatric: Yes: Other (anxiety) Labs: CBC, BMP 01/12/17 05:35 01/12/17 09:07 INR, PTT INR 1.04 (0.82-1.09) 01/07/17 21:30 Abnormal Lab Results 01/11/17 01/11/17 01/11/17 19:10 19:50 19:50 WBC 18.8 H RBC Hgb 9.7 L Hct 30.5 L MCV 74.3 L MCHC RDW 24.9 H Neutrophils % Lymphocytes % PTT (Actin FS) ABG HCO3 27.5 H ABG O2 Content 13.5 L ABG Base Excess 3.6 H Random Glucose 169 H Magnesium 2.7 H AST Albumin Urine Protein Urine Glucose (UA) Urine Ketones Urine Blood Crossmatch 01/11/17 01/12/17 01/12/17 21:00 05:35 09:07 WBC 11.5 H D RBC 2.82 L D Hgb 6.8 L* D Hct 24.6 L D MCV MCHC 27.8 L RDW 25.2 H Neutrophils % 87.5 H Lymphocytes % 4.9 L D PTT (Actin FS) 40.1 H ABG HCO3 ABG O2 Content ABG Base Excess Random Glucose Magnesium AST Albumin Urine Protein 2+ H Urine Glucose (UA) 3+ H Urine Ketones Trace H Urine Blood 2+ H Crossmatch 01/12/17 01/12/17 09:07 09:07 WBC RBC Hgb Hct MCV MCHC RDW Neutrophils % Lymphocytes % PTT (Actin FS) ABG HCO3 ABG O2 Content ABG Base Excess Random Glucose 185 H Magnesium AST 10 L D Albumin 2.7 L Urine Protein Urine Glucose (UA) Urine Ketones Urine Blood Crossmatch See Detail - ....Imaging Chest X-ray: Image Reviewed (right pneumoperitoneum) EKG: Image Reviewed (NSR) Other: Image Reviewed (telemetry: NSR; HR in the 90s bpm) Problem List - Problems (1) Rapid atrial fibrillation Assessment/Plan: Now converted to sinus rhythm. Continue metoprolol tartrate IVP fror HR control, catecholamine supression. (Consider amiodarone if HR returns to AF with RVR and is refractory to metoprolol). Await ECHO results for LVEF, chamber sizes, wall motion. Receiving PRBCs; f/u Hb. Discussed case with Dr. Sadler and CC team; will discontinue IV heparin. F/u with surgeon. Keep K+ 4-4.5, Mg 2-2.3, PO4 >2.5 F/u TSH. F/u lipids. Code(s): I48.91 - UNSPECIFIED ATRIAL FIBRILLATION (2) Anemia Assessment/Plan: receiving PRBCs. 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 Code(s): K66.8 - OTHER SPECIFIED DISORDERS OF PERITONEUM (9) S/P left hemicolectomy Code(s): Z90.49 - ACQUIRED ABSENCE OF OTHER SPECIFIED PARTS OF DIGESTIVE TRACT Assessment/Plan CC time spent reviewing record, examining pt, writing note: 45 minutes.
--- NOTE | 2017-01-12 12:21 | PN ---
Progress Note, Physician - Current Medication List Current Medications: Active Medications Heparin Sodium (Porcine) (Heparin -) 1,000 unit IVPUSH PRN PRN PRN Reason: Heparin Last Admin: 01/12/17 10:11 Dose: 1,000 unit Heparin Sodium (Porcine) (Heparin -) 5,000 unit IVPUSH PRN PRN PRN Reason: Heparin Last Admin: 01/12/17 03:15 Dose: 5,000 unit Hydromorphone HCl (Dilaudid Videotape Operator -) 0 mg CURING PRESS OPERATOR CURING PRESS OPERATOR JAKE PRN Reason: Protocol Stop: 01/12/17 13:56 Last Admin: 01/10/17 16:57 Dose: Not Given Hydromorphone HCl (Dilaudid Injection -) 2 mg IVPB Q4H PRN PRN Reason: PAIN Last Admin: 01/12/17 06:05 Dose: 2 mg Levofloxacin (Levaquin 500 Mg Premixed Ivpb -) 100 mls @ 100 mls/hr IVPB DAILY JAKE Last Admin: 01/12/17 10:10 Dose: 100 mls/hr Potassium Chloride/Dextrose/Sod Cl (D5-1/2ns+20 Meq Kcl -) 1,000 mls @ 83 mls/ hr IV ASDIR JAKE Last Admin: 01/11/17 17:21 Dose: 83 mls/hr Diltiazem HCl 125 mg/ Dextrose 125 mls @ 5 mls/hr IVPB TITR JAKE; 5 MG/HR PRN Reason: Protocol Last Titration: 01/11/17 19:49 Dose: 20 mg/hr Heparin Sodium (Porcine) 25, (000 unit/ Sodium Chloride) 500 mls @ 20 mls/hr IV TITR JAKE; 1,000 UNIT/HR PRN Reason: Protocol Last Admin: 01/12/17 10:11 Dose: 25 mls/hr Metronidazole (Flagyl 500mg Premixed Ivpb -) 100 mls @ 100 mls/hr IVPB Q8H-IV JAKE Last Admin: 01/12/17 03:15 Dose: 100 mls/hr Amino Acids (Clinimix -) 1,000 mls @ 42 mls/hr IV Q23H JAKE Lorazepam (Ativan Injection -) 0.5 mg IVPUSH Q6H PRN PRN Reason: ANXIETY Last Admin: 01/12/17 12:03 Dose: 0.5 mg Metoprolol Tartrate (Lopressor Injection -) 5 mg IVPUSH Q4H PRN PRN Reason: HYPERTENSION Last Admin: 01/11/17 19:59 Dose: 5 mg Ondansetron HCl (Zofran Injection) 4 mg IVPB Q6H PRN PRN Reason: NAUSEA AND/OR VOMITING Last Admin: 01/12/17 07:22 Dose: 4 mg - Objective Vital Signs: Vital Signs Temperature 98.2 F 01/12/17 08:00 Pulse Rate 92 H 01/12/17 08:00 Respiratory Rate 16 01/12/17 08:00 Blood Pressure 134/88 01/12/17 08:00 O2 Sat by Pulse Oximetry (%) 96 01/11/17 21:00 Labs: CBC, BMP 01/12/17 05:35 01/12/17 09:07 INR, PTT INR 1.04 (0.82-1.09) 01/07/17 21:30
[2017-01-12] MEDS ORDERED: dilTIAZem HCL 125 MG/25 ML - 5 ML VIAL ONE (12:27)
[2017-01-12] MEDS ORDERED: POTASSIUM CHLORIDE ORAL LIQUID 20 MEQ/15 ML PO ONE (12:43)
[2017-01-12] MEDS: AMINO ACIDS 4.25%/D5W 1,000 ML IV SCH ×2 (12:50→20:00)
[2017-01-12 13:23] LABS: CHOLESTEROL 175 mg/dL (50-200); LDL CHOLESTEROL (ONLY SJRH) 82 mg/dL (5-100)
[2017-01-12 13:29] LABS: THYROID STIMULATING HORMONE 0.16 uIU/ml (0.358-3.74)
--- NOTE | 2017-01-12 13:50 | PN ---
Teaching Attending Note Name of Resident: Odilon Carranza ATTENDING PHYSICIAN STATEMENT I saw and evaluated the patient. I reviewed the resident's note and discussed the case with the resident. I agree with the resident's findings and plan as documented. ASSESSMENT AND PLAN: Cecal Tumor s/p Right Hemicolectomy Atrial Fibrillation with RVR now in sinus rhythm Anemia Bladder Ca HTN - taper off cardizem gtt, transition to PO meds - transfuse PRBC - monitor H/H - would hold anticoagulation unless afib recurs - pain control - incentive spirometry - NGT to ILWS - NPO - IVF - await return of bowel function - replete lytes - DVT prophylaxis - can monitor in ICU overnight
--- NOTE | 2017-01-12 14:01 | EKG ---
Test Reason : Blood Pressure : / mmHG Vent. Rate : 093 BPM Atrial Rate : 093 BPM P-R Int : 148 ms QRS Dur : 100 ms QT Int : 354 ms P-R-T Axes : 056 008 074 degrees QTc Int : 440 ms NORMAL SINUS RHYTHM NONSPECIFIC T WAVE ABNORMALITY ABNORMAL ECG WHEN COMPARED WITH ECG OF 11-JAN-2017 20:22, SINUS RHYTHM HAS REPLACED ATRIAL FIBRILLATION T WAVE VARIATION Confirmed by CECIL VALVERDE, JACKIE ([id number]) on 01/12/2017 2:01:00 PM Referred By: KRISTYN CARDONA Confirmed By:JACKIE JACOB MD
--- NOTE | 2017-01-12 14:13 | EKG ---
Test Reason : Blood Pressure : / mmHG Vent. Rate : 171 BPM Atrial Rate : 342 BPM P-R Int : 000 ms QRS Dur : 134 ms QT Int : 260 ms P-R-T Axes : 259 022 -74 degrees QTc Int : 438 ms ATRIAL FLUTTER WITH 2:1 A-V CONDUCTION WITH RAPID VENTRICULAR REPONSE NON-SPECIFIC INTRA-VENTRICULAR CONDUCTION BLOCK NONSPECIFIC T WAVE ABNORMALITY ABNORMAL ECG WHEN COMPARED WITH ECG OF 02-DEC-2016 08:39, ATRIAL FLUTTER HAS REPLACED SINUS RHYTHM Confirmed by JACKIE JACOB MD ([id number]) on 01/12/2017 2:13:36 PM Referred By: Confirmed By:JACKIE JACOB MD
[2017-01-12] MEDS: METOPROLOL TARTRATE 5 MG/5 ML VIAL IVPUSH SCH ×3 (15:54→21:28)
[2017-01-12] MEDS: KCL 10 MEQ IVPB 100 ML IVPB SCH ×3 (15:54→18:03)
[2017-01-12 21:14] LABS: MCHC 32.8 g/dl (32.0-35.9); MEAN CELL VOLUME 76.1 fl (80-96); MEAN PLT VOLUME 7.2 fl (7.5-11.1); PLATELET COUNT 280 K/MM3 (134-434); RDW 22.8 % (11.9-15.9)
[2017-01-13] MEDS: METOPROLOL TARTRATE 5 MG/5 ML VIAL IVPUSH SCH ×6 (01:11→22:21)
[2017-01-13] MEDS: METRONIDAZOLE 500 MG PREMIXED 100 ML IVPB SCH ×3 (01:11→17:39)
[2017-01-13 07:08] LABS: BASOPHIL 0.2 % (0-2.0); EOSINOPHIL 0.9 % (0-4.5); MCH 25.1 pg (25.7-33.7); MCHC 33.2 g/dl (32.0-35.9); MEAN CELL VOLUME 75.6 fl (80-96); MEAN PLT VOLUME 7.3 fl (7.5-11.1); NEUTROPHILS 80.4 % (42.8-82.8); PLATELET COUNT 281 K/MM3 (134-434); RDW 22.9 % (11.9-15.9); WHITE BLOOD COUNT 14.5 K/mm3 (4.0-10.0)
[2017-01-13 07:34] LABS: ALBUMIN 2.9 g/dl (3.4-5.0); ANION GAP 6 (8-16); BILIRUBIN,TOTAL 0.9 mg/dL (0.2-1.0); CALCIUM 8.8 mg/dL (8.5-10.1); CO2 35 mmol/L (21-32); COCKROFT - GAULT 95.77; GLUCOSE,RANDOM 161 mg/dL (74-106); MAGNESIUM 2.8 mg/dL (1.8-2.4); SGOT/AST 11 U/L (15-37); SGPT/ALT 15 U/L (12-78); TOT PROT 6.7 g/dl (6.4-8.2)
[2017-01-13 07:43] LABS: ALK PHOS 55 U/L (45-117); FREE T4 1.39 ng/dl (0.76-1.16); THYROID STIMULATING HORMONE 0.45 uIU/ml (0.358-3.74)
--- NOTE | 2017-01-13 08:36 | PN ---
Physical Exam: SUBJECTIVE: Patient seen and examined at bedside in ICU this morning. States he has been passing more gas overnight. He also feels as if a bowel movement is imminent. Refused to use bedpan last night but agrees to attempt on a commode this morning. Repeatedly requested to drink an [place], as he states it will help him move his bowels. I repeatedly instructed patient to avoid any PO intake at all, as he is NPO & started to wretch yesterday when he chewed on a few small ice cubes. He states "I need to go with my instincts" but states he wouldnt drink anything. at bedside and agreed with my suggestions. Afebrile overnight with stable vitals. No acute events noted. OBJECTIVE: Vital Signs Period Temp Pulse Resp BP Sys/Gupta Pulse Ox Last 24 Hr 98.5 F-98.7 F 80-98 15-21 125-169/73-94 97-98 GENERAL: Awake, alert, and fully oriented, in no acute distress. HEENT: Atraumatic, EOMI, PERRLA, No conjunctival pallor, no lymphadenopathy. LUNGS: Breath sounds equal, clear to auscultation bilaterally. No wheezes, and no crackles. No accessory muscle use. HEART: Regular rate and rhythm, normal S1 and S2 without murmur, rub or gallop. ABDOMEN: Soft, minimally tender to palpation around surgical incision site, mildly distended abdomen. Hypoactive-Normal bowel sounds. No discharge or erythema at surgical site. EXTREMITIES: 2+ pulses, warm, well-perfused. No calf tenderness. No peripheral edema. NEUROLOGICAL: Cranial nerves II-XII intact. Normal speech. Normal gait. PSYCHIATRIC: Cooperative. Good eye contact. Appropriate mood and affect. SKIN: Warm, dry, normal turgor, no rashes or lesions noted. Laboratory Results 01/12/17 01/12/17 01/12/17 09:07 09:07 09:07 WBC RBC Hgb Hct MCV MCHC RDW Plt Count MPV Neutrophils % Lymphocytes % Monocytes % Eosinophils % Basophils % Polychromasia Hypochromic-Microcytic Microcytosis Fragmented RBCs PTT (Actin FS) 40.1 H Sodium 140 Potassium 3.5 Chloride 101 Carbon Dioxide 27 Anion Gap 12 BUN 16 Creatinine 0.9 Creat Clearance w eGFR > 60 Random Glucose 185 H Calcium 8.6 Magnesium Total Bilirubin 0.6 D AST 10 L D ALT 16 D Alkaline Phosphatase 53 Total Protein 6.4 Albumin 2.7 L Triglycerides 116 Cholesterol 175 Total LDL Cholesterol 82 HDL Cholesterol 70 H TSH 0.16 L Free T4 Ur Specific [place] Blood Type O POSITIVE Antibody Screen Negative Crossmatch See Detail 01/12/17 01/13/17 01/13/17 20:50 05:38 05:38 WBC 16.0 H D 14.5 H RBC 4.67 D 4.73 Hgb 11.7 D 11.9 Hct 35.5 D 35.8 MCV 76.1 L 75.6 L MCHC 32.8 33.2 RDW 22.8 H 22.9 H Plt Count 280 D 281 MPV 7.2 L D 7.3 L Neutrophils % 80.4 Lymphocytes % 9.0 D Monocytes % 9.5 Eosinophils % 0.9 D Basophils % 0.2 Polychromasia Hypochromic-Microcytic Microcytosis Fragmented RBCs PTT (Actin FS) 25.3 L Sodium Potassium Chloride Carbon Dioxide Anion Gap BUN Creatinine Creat Clearance w eGFR Random Glucose Calcium Magnesium Total Bilirubin AST ALT Alkaline Phosphatase Total Protein Albumin Triglycerides Cholesterol Total LDL Cholesterol HDL Cholesterol TSH Free T4 Ur Specific [place] Blood Type Antibody Screen Crossmatch 01/13/17 05:38 WBC RBC Hgb Hct MCV MCHC RDW Plt Count MPV Neutrophils % Lymphocytes % Monocytes % Eosinophils % Basophils % Polychromasia Hypochromic-Microcytic Microcytosis Fragmented RBCs PTT (Actin FS) Sodium 142 Potassium 3.4 L Chloride 101 Carbon Dioxide 35 H D Anion Gap 6 L BUN 25 H D Creatinine 1.0 Creat Clearance w eGFR > 60 Random Glucose 161 H Calcium 8.8 Magnesium 2.8 H Total Bilirubin 0.9 D AST 11 L ALT 15 Alkaline Phosphatase 55 Total Protein 6.7 Albumin 2.9 L Triglycerides Cholesterol Total LDL Cholesterol HDL Cholesterol TSH 0.45 D Free T4 1.39 H Ur Specific [place] Blood Type Antibody Screen Crossmatch Active Medications Generic Name Dose Route Start Last Admin Trade Name Freq PRN Reason Stop Dose Admin Hydromorphone HCl 2 mg 01/09/17 18:28 01/12/17 06:05 Dilaudid Injection - IVPB 2 mg Q4H PRN Administration PAIN Levofloxacin 100 mls @ 100 mls/hr 01/11/17 16:50 01/12/17 10:10 Levaquin 500 Mg Premixed Ivpb - IVPB 100 mls/hr DAILY JAKE Administration Metronidazole 100 mls @ 100 mls/hr 01/12/17 02:00 01/13/17 01:11 Flagyl 500mg Premixed Ivpb - IVPB 100 mls/hr Q8H-IV JAKE Administration Amino Acids 1,000 mls @ 42 mls/hr 01/12/17 09:15 01/12/17 20:00 Clinimix - IV 42 mls/hr Q23H JAKE Administration Lorazepam 0.5 mg 01/12/17 11:18 01/12/17 12:03 Ativan Injection - IVPUSH 0.5 mg Q6H PRN Administration ANXIETY Metoprolol Tartrate 5 mg 01/12/17 14:00 01/13/17 06:32 Lopressor Injection - IVPUSH 5 mg Q4H JAKE Administration Ondansetron HCl 4 mg 01/11/17 00:06 01/12/17 07:22 Zofran Injection IVPB 4 mg Q6H PRN Administration NAUSEA AND/OR VOMITING ASSESSMENT/PLAN: 66 year old male with PMH of Bladder Cancer & HTN who presented to ED on 01/07, was transfused 2 units PRBC & underwent right hemicolectomy the following day to 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 Patient subsequently developed A- Fib with RVR. Rate controlled & returned to sinus rhythm on cardizem drip & lopressor PRN. #Right Hemicolectomy, POD #4 -Continue IV antibiotics, Levaquin & Flagyl -Keep NPO as per surgery -Dilaudid pain management -Zofran for nausea -Incentive spirometry -Surgery following #A-Fibrillation w/ RVR -currently in sinus rhythm -rate controlled on Lopressor 5MG IVPUSH Q4H -Ativan ordered for episodic anxiety -ECHO reviewed #Anemia -received 2 units on admission, 2 more units given yesterday -stool for occult blood ordered #Hypokalemia -will replete -will continue to trend Prophylaxis/FEN -No AC needed (in sinus rhythm) -no PPI indicated -replete K+, monitor electrolytes -Clinimix @42cc/hr for 1 bag Dispo: stable for transfer to Telemetry Visit type - Emergency Visit Emergency Visit: Yes ED Registration Date: 01/11/17 Care time: The patient presented to the Emergency Department on the above date and was hospitalized for further evaluation of their emergent condition. - New Patient This patient is new to me today: No - Critical Care Critical Care patient: Yes Total Critical Care Time (in minutes): 45 Critical Care Statement: The care of this patient involved high complexity decision making to prevent further life threatening deterioration of the patient 's condition and/or to evalute & treat vital organ system(s) failure or risk of failure.
[2017-01-13] MEDS: LEVOFLOXACIN 500 MG IVPB 100 ML IVPB SCH (09:10)
[2017-01-13] MEDS: AMINO ACIDS 4.25%/D5W 1,000 ML IV SCH (09:16)
[2017-01-13] MEDS: KCL 10 MEQ IVPB 100 ML IVPB SCH ×3 (09:27→11:44)
--- NOTE | 2017-01-13 09:58 | PN ---
Progress Note, Physician Chief Complaint: sleepy today- received Ativan in the AM States he had passed flatus but no BM, states he feels like having a bm but does not want to be in a bed eh no abd pain told his to bring him juice -- resident explained to that pt still NPO - Current Medication List Current Medications: Active Medications Hydromorphone HCl (Dilaudid Injection -) 2 mg IVPB Q4H PRN PRN Reason: PAIN Last Admin: 01/12/17 06:05 Dose: 2 mg Levofloxacin (Levaquin 500 Mg Premixed Ivpb -) 100 mls @ 100 mls/hr IVPB DAILY JAKE Last Admin: 01/13/17 09:10 Dose: 100 mls/hr Metronidazole (Flagyl 500mg Premixed Ivpb -) 100 mls @ 100 mls/hr IVPB Q8H-IV JAKE Last Admin: 01/13/17 09:09 Dose: 100 mls/hr Amino Acids (Clinimix -) 1,000 mls @ 42 mls/hr IV Q23H JAKE Last Admin: 01/13/17 09:16 Dose: 42 mls/hr Potassium Chloride (Potassium Chloride 10 Meq Premix Ivpb -) 100 mls @ 100 mls/ hr IVPB Q60M JAKE Stop: 01/13/17 12:14 Last Admin: 01/13/17 09:27 Dose: 100 mls/hr Lorazepam (Ativan Injection -) 0.5 mg IVPUSH Q6H PRN PRN Reason: ANXIETY Last Admin: 01/12/17 12:03 Dose: 0.5 mg Metoprolol Tartrate (Lopressor Injection -) 5 mg IVPUSH Q4H [facility] Last Admin: 01/13/17 09:23 Dose: 5 mg Ondansetron HCl (Zofran Injection) 4 mg IVPB Q6H PRN PRN Reason: NAUSEA AND/OR VOMITING Last Admin: 01/12/17 07:22 Dose: 4 mg - Objective Vital Signs: Vital Signs Temperature 98.7 F 01/13/17 09:15 Pulse Rate 88 01/13/17 09:23 Respiratory Rate 18 01/13/17 09:15 Blood Pressure 143/90 01/13/17 09:23 O2 Sat by Pulse Oximetry (%) 97 01/12/17 22:00 Constitutional: Yes: No Distress Cardiovascular: Yes: Regular Rate and Rhythm Respiratory: Yes: CTA Bilaterally Gastrointestinal: Yes: Soft. No: Normal Bowel Sounds, Distention, Tenderness Peripheral Pulses WNL: No Psychiatric: Yes: Alert, Oriented Labs: CBC, BMP 01/13/17 05:38 01/13/17 05:38 INR, PTT INR 1.04 (0.82-1.09) 01/07/17 21:30 Problem List - Problems (1) Anemia due to acute blood loss Code(s): D62 - ACUTE POSTHEMORRHAGIC ANEMIA (2) Bladder cancer Code(s): C67.9 - MALIGNANT NEOPLASM OF BLADDER, UNSPECIFIED Qualifiers: Bladder location: overlapping sites Qualified Code(s): C67.8 - Malignant neoplasm of overlapping sites of bladder (3) HTN (hypertension) Code(s): I10 - ESSENTIAL (PRIMARY) HYPERTENSION Qualifiers: Hypertension type: essential hypertension Qualified Code(s): I10 - Essential (primary) hypertension (4) New onset a-fib Code(s): I48.91 - UNSPECIFIED ATRIAL FIBRILLATION (5) Rapid atrial fibrillation Code(s): I48.91 - UNSPECIFIED ATRIAL FIBRILLATION Assessment/Plan PLAN Keep NPO Ativan prn for anxiety IV Flagyl s/p 2 units PRBC He is now sinus off heparin and Cardizem drip CBC improved pain control Incentive spirometry iv fluids ok to transfer to Telemetry -- need Lopressor IV push for BP control HR control Echo noted
[2017-01-13] MEDS ORDERED: ONDANSETRON 4 MG/2 ML VIAL IVPB PRN (11:48)
[2017-01-13] MEDS ORDERED: LORAZEPAM CARPU-JECT 2 MG/ML DISP.SYRIN IVPUSH PRN (11:48)
--- NOTE | 2017-01-13 11:50 | PN ---
Progress Note, Physician History of Present Illness: The patient is a 66-year-old man, accompanied by , with a significant past medical history of hypertension and bladder Ca who presents to the emergency department via EMS for further evaluation of hematuria. He underwent a cystoscopy for in May- no chemotherapy/radiation since. He admits that he has been experiencing intermittent episodes of hematuria since August. His episodes are described as noted light pink urine without clots. However, over the past 3 weeks, he notes that his hematuria has worsen as it has become heavier,with noted dark urine and clots. He also notes that his symptoms are associated with headaches and lightheadedness and chills. He also notes that his lightheadedness is exacerbated on exertion (when walking). He denies fever, cough, shortness of breath , chest pain, palpitations, neck pain, leg pain, abdominal pain, nausea, vomiting, diarrhea, dysuria, flank pain, urinary hesitancy, urgency, frequency, penile discharge, testicular pain. He has a surgery scheduled for 12/04/[address] Harmon for tumor removal of his appendix and small bowel - patient refused. Allergies: No Known Drug Allergies Past Surgical History: Cystoscopy- 05/31. 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 Social History: No tobacco, ETOH and recreational drug use. Primary Care Physician: Dr. Mehdi Alonso [phone] Cloth Colors Examiner: Dr. Roberto Patel [phone] Urologist: Dr. Kp Burks [phone] General Surgeon: Dr. Duy Harmon [phone] Patient subsequently underwent elective right hemicolectomy on 01/08/2017 Post of developed leukocytosis and today AF with RVR. Transfered to telemetry for further management. Case d/w resident dr. Reed - Current Medication List Current Medications: Active Medications Potassium Chloride (Potassium Chloride 10 Meq Premix Ivpb -) 100 mls @ 100 mls/ hr IVPB Q60M JAKE Stop: 01/13/17 12:14 Last Admin: 01/13/17 11:44 Dose: 100 mls/hr Ondansetron HCl (Zofran Injection) 4 mg IVPB Q6H PRN PRN Reason: NAUSEA AND/OR VOMITING Last Admin: 01/12/17 07:22 Dose: 4 mg - Objective Vital Signs: Vital Signs Temperature 98.7 F 01/13/17 10:00 Pulse Rate 91 H 01/13/17 10:00 Respiratory Rate 18 01/13/17 10:00 Blood Pressure 159/87 01/13/17 10:00 O2 Sat by Pulse Oximetry (%) 97 01/12/17 22:00 Eyes: Yes: WNL, Conjunctiva Clear, EOM Intact HENT: Yes: WNL, Atraumatic, Normocephalic Neck: Yes: WNL, Supple, Trachea Midline Cardiovascular: Yes: WNL, Regular Rate and Rhythm Respiratory: Yes: WNL, Regular, CTA Bilaterally Genitourinary: Yes: WNL Musculoskeletal: Yes: WNL Extremities: Yes: WNL Edema: No Integumentary: Yes: WNL Neurological: Yes: WNL, Alert, Oriented ...Motor Strength: WNL Psychiatric: Yes: WNL Labs: CBC, BMP 01/13/17 05:38 01/13/17 05:38 INR, PTT INR 1.04 (0.82-1.09) 01/07/17 21:30 Problem List - Problems (1) Anemia Code(s): D64.9 - ANEMIA, UNSPECIFIED Qualifiers: Anemia type: iron deficiency (2) Anemia due to acute blood loss Code(s): D62 - ACUTE POSTHEMORRHAGIC ANEMIA (3) Bladder cancer Code(s): C67.9 - MALIGNANT NEOPLASM OF BLADDER, UNSPECIFIED Qualifiers: Bladder location: overlapping sites Qualified Code(s): C67.8 - Malignant neoplasm of overlapping sites of bladder (4) Bladder tumor Code(s): D49.4 - NEOPLASM OF UNSPECIFIED BEHAVIOR OF BLADDER (5) Gross hematuria Code(s): R31.0 - GROSS HEMATURIA (6) HTN (hypertension) Code(s): I10 - ESSENTIAL (PRIMARY) HYPERTENSION Qualifiers: Hypertension type: essential hypertension Qualified Code(s): I10 - Essential (primary) hypertension (7) Hematuria Code(s): R31.9 - HEMATURIA, UNSPECIFIED (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 start Toprol XL PO Receiving PRBCs; f/u Hb. Discussed case with Dr. Sadler and CC team; will discontinue IV heparin. F/u with surgeon. Keep K+ 4-4.5, Mg 2-2.3, PO4 >2.5 F/u TSH. F/u lipids. Code(s): I48.91 - UNSPECIFIED ATRIAL FIBRILLATION (2) Anemia Assessment/Plan: receiving PRBCs. 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 Code(s): K66.8 - OTHER SPECIFIED DISORDERS OF PERITONEUM (9) S/P left hemicolectomy Code(s): Z90.49 - ACQUIRED ABSENCE OF OTHER SPECIFIED PARTS OF DIGESTIVE TRACT Assessment/Plan CC time spent reviewing record, examining pt, writing note: 35 minutes.
[2017-01-13] MEDS ORDERED: KCL 10 MEQ IVPB 100 ML IVPB SCH (12:15)
--- NOTE | 2017-01-13 12:16 | EKG ---
Test Reason : Blood Pressure : / mmHG Vent. Rate : 162 BPM Atrial Rate : 163 BPM P-R Int : 000 ms QRS Dur : 124 ms QT Int : 242 ms P-R-T Axes : 000 003 -33 degrees QTc Int : 397 ms ATRIAL FLUTTER WITH 2 TO 1 BLOCK NON-SPECIFIC INTRA-VENTRICULAR CONDUCTION DELAY NONSPECIFIC ST AND T WAVE ABNORMALITY ABNORMAL ECG Confirmed by JOSEPH WALTON MD ([id number]) on 01/13/2017 12:15:48 PM Referred By: Confirmed By:JOSEPH WALTON MD
--- NOTE | 2017-01-13 12:16 | EKG ---
Test Reason : Blood Pressure : / mmHG Vent. Rate : 077 BPM Atrial Rate : 300 BPM P-R Int : 000 ms QRS Dur : 094 ms QT Int : 362 ms P-R-T Axes : 000 012 071 degrees QTc Int : 409 ms ATRIAL FIBRILLATION ABNORMAL ECG WHEN COMPARED WITH ECG OF 11-JAN-2017 19:31, ATRIAL FIBRILLATION HAS REPLACED WIDE QRS TACHYCARDIA VENT. RATE HAS DECREASED BY 85 BPM Confirmed by ANTON VALVERDE, JOSEPH ([id number]) on 01/13/2017 12:16:20 PM Referred By: Confirmed By:JOSEPH WALTON MD
[2017-01-13] MEDS: HYDROmorphone HCL CARPU-JECT 2 MG/1 ML DISP.SYRIN IVPB PRN ×2 (12:42→22:21)
--- NOTE | 2017-01-13 13:40 | PN ---
Progress Note, Physician - Current Medication List Current Medications: Active Medications Hydromorphone HCl (Dilaudid Injection -) 2 mg IVPB Q4H PRN PRN Reason: PAIN Last Admin: 01/13/17 12:42 Dose: 2 mg Metronidazole (Flagyl 500mg Premixed Ivpb -) 100 mls @ 100 mls/hr IVPB Q8H-IV JAKE Levofloxacin (Levaquin 500 Mg Premixed Ivpb -) 100 mls @ 100 mls/hr IVPB DAILY JAKE Amino Acids (Clinimix -) 1,000 mls @ 83 mls/hr IV Q12H JAKE Lorazepam (Ativan Injection -) 0.5 mg IVPUSH Q6H PRN PRN Reason: ANXIETY Metoprolol Tartrate (Lopressor Injection -) 5 mg IVPUSH Q4H JAKE Multivitamins/Minerals (Infuvite Adult -) 10 ml IV DAILY JAKE Ondansetron HCl (Zofran Injection) 4 mg IVPB Q6H PRN PRN Reason: NAUSEA AND/OR VOMITING - Objective Vital Signs: Vital Signs Temperature 98.7 F 01/13/17 10:00 Pulse Rate 99 H 01/13/17 12:00 Respiratory Rate 18 01/13/17 12:00 Blood Pressure 146/90 01/13/17 12:00 O2 Sat by Pulse Oximetry (%) 97 01/12/17 22:00 Labs: CBC, BMP 01/13/17 05:38 01/13/17 05:38 INR, PTT INR 1.04 (0.82-1.09) 01/07/17 21:30 Assessment/Plan Abdomen is soft, not tender. Abdominal X-ray ordered Wound culture: Gram negative bacilli, lactose fermenting. WBC 08172 NG drainage 700 ml. Passing flatus.
--- NOTE | 2017-01-13 13:48 | PN ---
Teaching Attending Note Name of Resident: Odilon Carranza ATTENDING PHYSICIAN STATEMENT I saw and evaluated the patient. I reviewed the resident's note and discussed the case with the resident. I agree with the resident's findings and plan as documented. SUBJECTIVE: Pt seen and examined in the ICU. Reports flatus overnight but no BM yet. No shortness of breath or chest pain. No fevers or chills. Remains in sinus rhythm. OBJECTIVE: Last Vital Signs Temp Pulse Resp BP Pulse Ox 98.7 F 88 18 160/91 97 01/13/17 10:00 01/13/17 13:39 01/13/17 12:00 01/13/17 13:39 01/12/17 22:00 Intake & Output 01/10/17 01/11/17 01/12/17 01/13/17 23:59 23:59 23:59 23:59 Intake Total 100 1050 2686 604 Output Total 2030 1200 2000 900 Balance -1930 -150 686 -296 Gen: NAD at rest Heart: RRR Lung: decreased breath sounds at the bases Abd: soft, dressings dry, hypoactive BS Ext: no edema CBC, BMP 01/13/17 05:38 01/13/17 05:38 Active Medications Hydromorphone HCl (Dilaudid Injection -) 2 mg IVPB Q4H PRN PRN Reason: PAIN Last Admin: 01/13/17 12:42 Dose: 2 mg Metronidazole (Flagyl 500mg Premixed Ivpb -) 100 mls @ 100 mls/hr IVPB Q8H-IV JAKE Levofloxacin (Levaquin 500 Mg Premixed Ivpb -) 100 mls @ 100 mls/hr IVPB DAILY JAKE Amino Acids (Clinimix -) 1,000 mls @ 83 mls/hr IV Q12H JAKE Lorazepam (Ativan Injection -) 0.5 mg IVPUSH Q6H PRN PRN Reason: ANXIETY Metoprolol Tartrate (Lopressor Injection -) 5 mg IVPUSH Q4H JAKE Last Admin: 01/13/17 13:39 Dose: 5 mg Multivitamins/Minerals (Infuvite Adult -) 10 ml IV DAILY JAKE Ondansetron HCl (Zofran Injection) 4 mg IVPB Q6H PRN PRN Reason: NAUSEA AND/OR VOMITING ASSESSMENT AND PLAN: Cecal Tumor s/p Right Hemicolectomy Atrial Fibrillation with RVR now in sinus rhythm Anemia Bladder Ca HTN - rate controlled with lopressor IVP - replete lytes - monitor H/H - would hold anticoagulation unless afib recurs - pain control - incentive spirometry - NGT to ILWS - NPO - IVF - await return of bowel function - DVT prophylaxis - can monitor on telemetry
--- NOTE | 2017-01-13 14:30 | PATH ---
Surgical Pathology Report Patient Name: RED CARMICHAEL [place]. Rec. #: [id number] /Age/Gender: 1950 (Age: 66) / M Account: [id number] Location: ICU TRAFFIC REPRESENTATIVE Taken: 01/08/2017 Received: 01/08/2017 Reported: 01/13/2017 Physicians: rTi Goodwin M.D. Specimen(s) Received A: RIGHT HEMICOLECTOMY B: TISSUE FROM REDO ANASTOMOSIS Clinical History Tumor at base of appendix Intraoperative Consult Diagnosis Colon-right hemicolectomy, gross exam: Lesion/tumor at the base of the appendix identified (gross). Dr. Harris, 01/08/17 Final Diagnosis A. 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 NO HIGH GRADE DYSPLASIA OR INVASIVE CARCINOMA IDENTIFIED. SURGICAL RESECTION MARGINS: NEGATIVE FOR ADENOMA. TERMINAL ILEUM: WITHOUT SIGNIFICANT PATHOLOGIC CHANGES. UNINVOLVED COLON: WITHOUT SIGNIFICANT PATHOLOGIC CHANGES. APPENDIX: WITHOUT SIGNIFICANT PATHOLOGIC CHANGES. THIRTEEN BENIGN LYMPH NODES (0/13). Comment: Adenoma is located at the base of the appendix partially obstructing the appendicial orifice. B. TISSUE FROM REDO ANASTOMOSIS: FRAGMENTS ALL SLUDGE AND SMALL BOWELS WITH VASCULAR CONGESTION AND FOCAL HEMORRHAGE. Electronically Signed Preston Harris M.D. Gross Description A. Received fresh labeled "right hemicolectomy " is a 9 cm in length terminal ileum with an attached 40 cm in length portion of cecum and right colon. The specimen displays 2 stapled mucosal margins as well as abundant attached pericolonic adipose tissue. The serosa is odell-pink and smooth. Sectioning reveals a 0.9 x 0.9 cm pink-odell, polypoid lesion in the appendix at the appendiceal orifice. No definite invasion of the lesion is identified. The lesion is at 3 cm from the mesenteric margin of resection. The attached appendix measures 6 cm in length and appears unremarkable. The remaining mucosa is focally hemorrhagic and displays normal folds. Sectioning of the pericolonic adipose tissue reveals multiple odell possible lymph nodes. An intraoperative gross examination is performed. Computer Peripheral Equipment Operator sections are submitted in 14 cassettes as follows: 1-terminal ileal margin of resection; 2-distal mucosal margin of resection; 3-shave of mesenteric margin of resection; 8-9-ajvodywi, entirely submitted mass; 6-ict sales representative appendix; 7-uninvolved terminal ileum; 2-4-tbyadkumpt cecum and right colon; 38-67-mjxorzfa whole possible lymph nodes each. B. Received in formalin labeled "tissue removed from redo anastomosis" are 3 odell, undesignated portions of bowel ranging from 3.0-6.0 cm in length. Each portion displays a staple line. The serosa is odell-cordoba and smooth. The mucosa is odell with normal folds. No lesions are identified. Computer Peripheral Equipment Operator sections are submitted in 3 cassettes 01/08/2017 [facility]01/08/2017
[2017-01-14] MEDS: METRONIDAZOLE 500 MG PREMIXED 100 ML IVPB SCH ×3 (03:54→17:23)
[2017-01-14] MEDS: METOPROLOL TARTRATE 5 MG/5 ML VIAL IVPUSH SCH ×6 (03:55→22:03)
[2017-01-14] MEDS: HYDROmorphone HCL CARPU-JECT 2 MG/1 ML DISP.SYRIN IVPB PRN ×3 (06:29→20:16)
[2017-01-14] MEDS ORDERED: AMINO ACIDS 4.25%/D5W 1,000 ML IV SCH ×2 (07:15)
[2017-01-14] MEDS ORDERED: MULTIVIT INJECTION ADULT 10 ML in AMINO ACIDS 4.25%/D5W 1,000 ML IV SCH (07:15)
[2017-01-14 08:17] LABS: MCH 24.9 pg (25.7-33.7); MCHC 32.8 g/dl (32.0-35.9); MEAN PLT VOLUME 8.3 fl (7.5-11.1); PLATELET COUNT 327 K/MM3 (134-434); RDW 23.5 % (11.9-15.9); WHITE BLOOD COUNT 14.4 K/mm3 (4.0-10.0)
--- NOTE | 2017-01-14 09:30 | PN ---
Progress Note, Physician - Current Medication List Current Medications: Active Medications Hydromorphone HCl (Dilaudid Injection -) 2 mg IVPB Q4H PRN PRN Reason: PAIN Last Admin: 01/14/17 06:29 Dose: 2 mg Metronidazole (Flagyl 500mg Premixed Ivpb -) 100 mls @ 100 mls/hr IVPB Q8H-IV JAKE Last Admin: 01/14/17 03:54 Dose: 100 mls/hr Levofloxacin (Levaquin 500 Mg Premixed Ivpb -) 100 mls @ 100 mls/hr IVPB DAILY JAKE Amino Acids (Clinimix -) 1,000 mls @ 83 mls/hr IV Q12H JAKE Lorazepam (Ativan Injection -) 0.5 mg IVPUSH Q6H PRN PRN Reason: ANXIETY Metoprolol Tartrate (Lopressor Injection -) 5 mg IVPUSH Q4H JAKE Last Admin: 01/14/17 06:29 Dose: Not Given Multivitamins/Minerals (Infuvite Adult -) 10 ml IV DAILY JAKE Ondansetron HCl (Zofran Injection) 4 mg IVPB Q6H PRN PRN Reason: NAUSEA AND/OR VOMITING - Objective Vital Signs: Vital Signs Temperature 98.5 F 01/14/17 08:26 Pulse Rate 91 H 01/14/17 08:26 Respiratory Rate 20 01/14/17 08:26 Blood Pressure 139/82 01/14/17 08:26 O2 Sat by Pulse Oximetry (%) 98 01/14/17 08:22 Labs: CBC, BMP 01/14/17 06:00 01/13/17 05:38 INR, PTT INR 1.04 (0.82-1.09) 01/07/17 21:30 Assessment/Plan Patient is comfortable, Abdomen is soft , note tender, has wound infection , opened at the lower end. Upper part of wound is indurated , some staple removed and pus drained. Sent for culture and antibiotic sensitivity. Will repeat abdominal Ct scan , if no sign of obstruction will resume feeding. Abdominal X-ray from yesterday and today , appears normal, but is not reported . WBC 55715. Wound infection.
[2017-01-14] MEDS: AMINO ACIDS 4.25%/D5W 1,000 ML IV SCH ×2 (09:47→22:04)
[2017-01-14] MEDS ORDERED: LEVOFLOXACIN 500 MG IVPB 100 ML IVPB SCH (10:00)
--- NOTE | 2017-01-14 10:11 | PN ---
Progress Note, Physician Chief Complaint: Pt c/o pain at surgical site (dressing just changed); c/o being thirsty. History of Present Illness: The patient is a 66-year-old black man, accompanied by , with a significant past medical history of hypertension and bladder Ca, who presents to the emergency department via EMS for further evaluation of hematuria. He underwent a cystoscopy in May- no chemotherapy/radiation since. He admits that he has been experiencing intermittent episodes of hematuria since August. His episodes are described as noted light pink urine without clots. However, over the past 3 weeks, he notes that his hematuria has worsen as it has become heavier,with noted dark urine and clots. He also notes that his symptoms are associated with headaches and lightheadedness and chills. He also notes that his lightheadedness is exacerbated on exertion (when walking). He denies fever, cough, shortness of breath , chest pain, palpitations, neck pain, leg pain, abdominal pain, nausea, vomiting, diarrhea, dysuria, flank pain, urinary hesitancy, urgency, frequency, penile discharge, testicular pain. He has a surgery scheduled for 12/04/[address] Harmon for tumor removal of his appendix and small bowel - patient refused. Allergies: No Known Drug Allergies Past Surgical History: Cystoscopy- 05/31. 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 Social History: No tobacco, ETOH and recreational drug use. Primary Care Physician: Dr. Mehdi Alonso [phone] Livestock Yard Attendant: Dr. Roberto Patel [phone] - Current Medication List Current Medications: Active Medications Hydromorphone HCl (Dilaudid Injection -) 2 mg IVPB Q4H PRN PRN Reason: PAIN Last Admin: 01/14/17 06:29 Dose: 2 mg Metronidazole (Flagyl 500mg Premixed Ivpb -) 100 mls @ 100 mls/hr IVPB Q8H-IV [facility] Last Admin: 01/14/17 09:46 Dose: 100 mls/hr Levofloxacin (Levaquin 500 Mg Premixed Ivpb -) 100 mls @ 100 mls/hr IVPB DAILY [facility] Last Admin: 01/14/17 09:46 Dose: 100 mls/hr Amino Acids (Clinimix -) 1,000 mls @ 83 mls/hr IV Q12H [facility] Last Admin: 01/14/17 09:47 Dose: 83 mls/hr Lorazepam (Ativan Injection -) 0.5 mg IVPUSH Q6H PRN PRN Reason: ANXIETY Metoprolol Tartrate (Lopressor Injection -) 5 mg IVPUSH Q4H [facility] Last Admin: 01/14/17 09:58 Dose: 5 mg Multivitamins/Minerals (Infuvite Adult -) 10 ml IV DAILY [facility] Ondansetron HCl (Zofran Injection) 4 mg IVPB Q6H PRN PRN Reason: NAUSEA AND/OR VOMITING - Objective Vital Signs: Vital Signs Temperature 98.5 F 01/14/17 08:26 Pulse Rate 93 H 01/14/17 09:58 Respiratory Rate 20 01/14/17 08:26 Blood Pressure 135/88 01/14/17 09:58 O2 Sat by Pulse Oximetry (%) 98 01/14/17 08:22 Constitutional: Yes: Anxious Eyes: Yes: WNL HENT: Yes: WNL Neck: Yes: WNL Cardiovascular: Yes: Regular Rate and Rhythm Respiratory: Yes: Regular Gastrointestinal: Yes: Soft, Tenderness ...Rectal Exam: Yes: Deferred Genitourinary: Yes: Anuria Musculoskeletal: Yes: Muscle Weakness Extremities: Yes: Cool Edema: No Peripheral Pulses WNL: Yes Integumentary: Yes: Bruising, Incision Wound/Incision: Yes: Dressing Dry and Intact Neurological: Yes: Alert, Oriented, Weakness Psychiatric: Yes: WNL Labs: CBC, BMP 01/14/17 06:00 01/13/17 05:38 INR, PTT INR 1.04 (0.82-1.09) 01/07/17 21:30 Abnormal Lab Results 01/14/17 01/14/17 06:00 06:00 WBC 14.4 H Hgb 11.4 L Hct 34.6 L MCV 76.0 L RDW 23.5 H PTT (Actin FS) 25.7 L - ....Imaging Cat Scan: Pending Other: Image Reviewed (telemetry: NSR; occasional APCs) Problem List - Problems (1) Rapid atrial fibrillation Assessment/Plan: Remains in sinus rhythm. Continue metoprolol tartrate IVP fror HR control, catecholamine supression. (Consider amiodarone if HR returns to AF with RVR and is refractory to metoprolol). ECHO: normal LVEF; mild LAE; moderate AR. Hct 34.6 Post PRBCs0. Keep K+ 4-4.5, Mg 2-2.3, PO4 >2.5 Mildly elevated free T3; f/u to be sure this does not become a factor in exacerbating AF. Lipids well-controlled. Pain management. Code(s): I48.91 - UNSPECIFIED ATRIAL FIBRILLATION (2) Anemia Assessment/Plan: HCt WNL after PRBCs. 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 Pain management. Code(s): K66.8 - OTHER SPECIFIED DISORDERS OF PERITONEUM (9) S/P left hemicolectomy Assessment/Plan: f/u with surgeon. Code(s): Z90.49 - ACQUIRED ABSENCE OF OTHER SPECIFIED PARTS OF DIGESTIVE TRACT
--- NOTE | 2017-01-14 11:31 | PN ---
Progress Note, Physician Chief Complaint: still NPO says he is passing gas and wants the NG tube out No pain had dark urine yesterday and today - Current Medication List Current Medications: Active Medications Hydromorphone HCl (Dilaudid Injection -) 2 mg IVPB Q4H PRN PRN Reason: PAIN Last Admin: 01/14/17 06:29 Dose: 2 mg Metronidazole (Flagyl 500mg Premixed Ivpb -) 100 mls @ 100 mls/hr IVPB Q8H-IV [facility] Last Admin: 01/14/17 09:46 Dose: 100 mls/hr Levofloxacin (Levaquin 500 Mg Premixed Ivpb -) 100 mls @ 100 mls/hr IVPB DAILY [facility] Last Admin: 01/14/17 09:46 Dose: 100 mls/hr Amino Acids (Clinimix -) 1,000 mls @ 83 mls/hr IV Q12H [facility] Last Admin: 01/14/17 09:47 Dose: 83 mls/hr Lorazepam (Ativan Injection -) 0.5 mg IVPUSH Q6H PRN PRN Reason: ANXIETY Metoprolol Tartrate (Lopressor Injection -) 5 mg IVPUSH Q4H [facility] Last Admin: 01/14/17 09:58 Dose: 5 mg Multivitamins/Minerals (Infuvite Adult -) 10 ml IV DAILY [facility] Ondansetron HCl (Zofran Injection) 4 mg IVPB Q6H PRN PRN Reason: NAUSEA AND/OR VOMITING - Objective Vital Signs: Vital Signs Temperature 98.5 F 01/14/17 08:26 Pulse Rate 93 H 01/14/17 09:58 Respiratory Rate 20 01/14/17 08:26 Blood Pressure 135/88 01/14/17 09:58 O2 Sat by Pulse Oximetry (%) 98 01/14/17 08:22 Constitutional: Yes: No Distress, Calm Cardiovascular: Yes: Regular Rate and Rhythm Respiratory: Yes: CTA Bilaterally Gastrointestinal: Yes: Soft, Hypoactive Bowel Sounds. No: Distention, Tenderness Edema: No Psychiatric: Yes: Alert, Oriented Labs: CBC, BMP 01/14/17 06:00 01/13/17 05:38 INR, PTT INR 1.04 (0.82-1.09) 01/07/17 21:30 Problem List - Problems (1) Anemia due to acute blood loss Code(s): D62 - ACUTE POSTHEMORRHAGIC ANEMIA (2) Bladder cancer Code(s): C67.9 - MALIGNANT NEOPLASM OF BLADDER, UNSPECIFIED Qualifiers: Bladder location: overlapping sites Qualified Code(s): C67.8 - Malignant neoplasm of overlapping sites of bladder (3) HTN (hypertension) Code(s): I10 - ESSENTIAL (PRIMARY) HYPERTENSION Qualifiers: Hypertension type: essential hypertension Qualified Code(s): I10 - Essential (primary) hypertension (4) New onset a-fib Code(s): I48.91 - UNSPECIFIED ATRIAL FIBRILLATION (5) Rapid atrial fibrillation Code(s): I48.91 - UNSPECIFIED ATRIAL FIBRILLATION Assessment/Plan PLAN I can hear minimal bowel sounds-- will speak with Dr hale about starting liquids Ativan prn for anxiety IV Flagyl , Levaquin-- wound infection -- noted wound cultures s/p 2 units PRBC He is now sinus off heparin and Joni madden spoke with Hair Mixer-- if he goes back to Afib-- may need Amiodarone. Holding off anticoagulation. Hb stable pain control Incentive spirometry iv fluids PT eval Echo noted
[2017-01-14] MEDS: MULTIVIT INJ. ADULT COMBO WITH VIT K 1 COMBO 10 ML VIAL IV SCH ×2 (12:00→12:01)
--- NOTE | 2017-01-14 15:18 | PN ---
Progress Note (short form) - Note Progress Note: ID Consult dictated Surgical wound infection Leukocytosis Post op ileus v. partial SBO S/P R hemicolectomy Repeat BC for persistant leukocytosis Ceftriaxone 2gm IVPB q24h + Flagyl 500mg IVPB q8h
[2017-01-14] MEDS ORDERED: CEFTRIAXONE 2 GM in DEXTROSE 5%-WATER - 100 ML IVPB SCH (15:45)
--- NOTE | 2017-01-14 16:20 | CONS ---
DATE OF CONSULTATION: DATE OF DICTATION: 01/14/2017 The patient is a 66-year-old male evaluated for postoperative surgical wound infection. The patient recently underwent a cystoscopy and TURBT on December 07, 2016. He was incidentally found to have an appendiceal mass. He was electively admitted for a right hemicolectomy. Prior to surgery, he required transfusion of packed red blood cells for anemia. He was taken to the OR on January 08, 2017, where an open right hemicolectomy was performed. 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 His postoperative course was complicated by rapid atrial fibrillation, leukocytosis, and postoperative ileus versus partial small-bowel obstruction. He was now noted to have purulent drainage from the upper and lower aspects of the surgical wound. A culture was obtained and grew mixed organisms, including E coli, coagulase-negative staphylococcus, and Streptococcus viridans. At the present time, he is awake and alert. He is in moderate distress secondary to abdominal discomfort. An NG tube is in place. Past medical history positive for bladder cancer and hypertension. No known allergies. Medications include Levaquin, Flagyl, Zofran, Lopressor, Dilaudid. SOCIAL HISTORY: The patient lives at home. Nonsmoker, nondrinker. SYSTEMS REVIEW: Neurologic: No loss of consciousness, seizure activity, or focal weakness. Cardiac: Positive for rapid atrial fibrillation. Respiratory: Negative for cough or sputum production. Gastrointestinal: As per HPI. Genitourinary: Negative for urinary tract infection. LABORATORY DATA: White count 14.4, hematocrit 34.6, platelet count 327. BUN 25, creatinine 1.0. Urinalysis: 1 white cell. Blood cultures negative. Wound culture as mentioned. PHYSICAL EXAMINATION: General: He is in moderate distress secondary to abdominal discomfort and presence of an NG tube. Vital Signs: Temperature 98.5. Blood pressure 139/88. Pulse 90, regular. Respiration 20 per minute. ENT: Sclerae anicteric. NG tube is in place. Heart Sounds: S1, S2. Lungs: Diminished breath sounds at the bases bilaterally. Abdomen: Soft, however, mild diffuse incisional tenderness. There is a midline surgical wound with faby in place. There is partial wound dehiscence at the upper and lower poles of the wound. There is purulent drainage noted from the lower opening of the surgical wound. Extremities: Negative for edema. IMPRESSION: 1. Surgical wound infection. 2. Leukocytosis. 3. Possible sepsis secondary to surgical wound infection. 4. Postoperative ileus versus partial small-bowel obstruction. 5. Status post right hemicolectomy. I would repeat blood cultures for persistent leukocytosis, antibiotic therapy directed at isolated organisms with ceftriaxone 2 g IV piggyback daily plus Flagyl 500 mg IV piggyback every 8 hours. Local wound care. Case discussed with Dr. Harmon. Thank you for the kind referral. JESSIKA ANTOINE M.D. [id number]
--- NOTE | 2017-01-14 16:25 | PN ---
Progress Note, Physician - Current Medication List Current Medications: Active Medications Hydromorphone HCl (Dilaudid Injection -) 2 mg IVPB Q4H PRN PRN Reason: PAIN Last Admin: 01/14/17 13:51 Dose: 2 mg Metronidazole (Flagyl 500mg Premixed Ivpb -) 100 mls @ 100 mls/hr IVPB Q8H-IV [facility] Last Admin: 01/14/17 09:46 Dose: 100 mls/hr Amino Acids (Clinimix -) 1,000 mls @ 83 mls/hr IV Q12H [facility] Last Admin: 01/14/17 09:47 Dose: 83 mls/hr Ceftriaxone Sodium (Rocephin 2gm Ivpb (Pre-Docked)) 100 mls @ 200 mls/hr IVPB DAILY [facility] Lorazepam (Ativan Injection -) 0.5 mg IVPUSH Q6H PRN PRN Reason: ANXIETY Metoprolol Tartrate (Lopressor Injection -) 5 mg IVPUSH Q4H [facility] Last Admin: 01/14/17 13:51 Dose: 5 mg Multivitamins/Minerals (Infuvite Adult -) 10 ml IV DAILY [facility] Last Admin: 01/14/17 12:01 Dose: 10 ml Ondansetron HCl (Zofran Injection) 4 mg IVPB Q6H PRN PRN Reason: NAUSEA AND/OR VOMITING - Objective Vital Signs: Vital Signs Temperature 98 F 01/14/17 14:00 Pulse Rate 85 01/14/17 14:00 Respiratory Rate 20 01/14/17 14:00 Blood Pressure 158/90 01/14/17 14:00 O2 Sat by Pulse Oximetry (%) 98 01/14/17 08:22 Labs: CBC, BMP 01/14/17 06:00 01/13/17 05:38 INR, PTT INR 1.04 (0.82-1.09) 01/07/17 21:30 Assessment/Plan Patient is comfortable, Upper part of the abdominal wound is indurated , few faby are removed , and pus darined. A swab was sent for culture and antibiotic sensitivity. patient is passing flatus. Ct scan shows contrast past the anastamosis and in the descending colon. Will resume feeding tomorrow[place] [id number]. Wound infection postop . resolving small bowel obstruction / ilius. Atrial fibrillation.
[2017-01-15] MEDS: HYDROmorphone HCL CARPU-JECT 2 MG/1 ML DISP.SYRIN IVPB PRN ×4 (01:03→20:23)
[2017-01-15] MEDS: METOPROLOL TARTRATE 5 MG/5 ML VIAL IVPUSH SCH ×6 (01:06→22:34)
[2017-01-15] MEDS: METRONIDAZOLE 500 MG PREMIXED 100 ML IVPB SCH ×3 (01:06→17:37)
[2017-01-15 07:30] LABS: MCH 25.2 pg (25.7-33.7); MCHC 33.2 g/dl (32.0-35.9); MEAN CELL VOLUME 76.1 fl (80-96); MEAN PLT VOLUME 7.5 fl (7.5-11.1); PLATELET COUNT 375 K/MM3 (134-434); RDW 23.6 % (11.9-15.9); WHITE BLOOD COUNT 13.4 K/mm3 (4.0-10.0)
--- NOTE | 2017-01-15 08:36 | PN ---
Progress Note (short form) - Note Progress Note: SUBJECTIVE: Patient seen and examined. Chart reviewed. Patient awake and comfortable. Mood somewhat depressed. Denies pain. Surgical follow up noted. Afebrile. ID consult also noted. OBJECTIVE: Vital Signs 01/15/17 01/15/17 01/15/17 05:19 06:59 07:25 Temperature 98.9 F 98.5 F Pulse Rate 86 86 90 Respiratory 20 20 Rate Blood Pressure 147/87 146/70 146/78 O2 Sat by Pulse Oximetry (%) 01/15/17 01/15/17 07:32 09:14 Temperature Pulse Rate 89 Respiratory Rate Blood Pressure 147/75 O2 Sat by Pulse 98 Oximetry (%) Intake & Output 01/14/17 01/15/17 01/15/17 23:59 07:59 15:59 Intake Total 996 Output Total 600 Balance 396 Intake: IV 996 Clinimix @ 83 cc/hr 996 Output: Urine 600 Void 600 Other: Voiding Method Urinal Urinal Active Medications Hydromorphone HCl (Dilaudid Injection -) 2 mg IVPB Q4H PRN PRN Reason: PAIN Last Admin: 01/15/17 08:43 Dose: 2 mg Metronidazole (Flagyl 500mg Premixed Ivpb -) 100 mls @ 100 mls/hr IVPB Q8H-IV [facility] Last Admin: 01/15/17 09:13 Dose: 100 mls/hr Amino Acids (Clinimix -) 1,000 mls @ 83 mls/hr IV Q12H [facility] Last Admin: 01/15/17 08:55 Dose: 83 mls/hr Ceftriaxone Sodium (Rocephin 2gm Ivpb (Pre-Docked)) 100 mls @ 200 mls/hr IVPB DAILY [facility] Last Admin: 01/15/17 09:13 Dose: 200 mls/hr Lorazepam (Ativan Injection -) 0.5 mg IVPUSH Q6H PRN PRN Reason: ANXIETY Metoprolol Tartrate (Lopressor Injection -) 5 mg IVPUSH Q4H [facility] Last Admin: 01/15/17 09:14 Dose: 5 mg Multivitamins/Minerals (Infuvite Adult -) 10 ml IV DAILY [facility] Last Admin: 01/14/17 12:01 Dose: 10 ml Ondansetron HCl (Zofran Injection) 4 mg IVPB Q6H PRN PRN Reason: NAUSEA AND/OR VOMITING CBC, BMP 01/15/17 05:35 01/15/17 06:50 Laboratory Results - last 24 hr 01/15/17 01/15/17 01/15/17 05:35 05:35 06:50 WBC 13.4 H RBC 4.46 Hgb 11.3 L Hct 33.9 L MCV 76.1 L MCHC 33.2 RDW 23.6 H Plt Count 375 MPV 7.5 Hypochromic-Microcytic 2+ Target Cells 1+ Acanthocytes (Spur) 1+ PTT (Actin FS) 26.2 L Sodium 140 Potassium 3.5 Chloride 102 Carbon Dioxide 29 Anion Gap 9 BUN 24 H Creatinine 0.9 Creat Clearance w eGFR > 60 Random Glucose 150 H Calcium 8.8 Total Bilirubin 0.5 D AST 13 L ALT 15 Alkaline Phosphatase 49 Total Protein 6.0 L Albumin 2.6 L Microbiology 01/11/17 19:50 Blood Culture - Preliminary Blood - Arterial NO GROWTH OBTAINED AFTER 72 HOURS, INCUBATION TO CONTINUE FOR 2 DAYS. 01/11/17 19:50 Blood Culture - Preliminary Blood - Arterial NO GROWTH OBTAINED AFTER 72 HOURS, INCUBATION TO CONTINUE FOR 2 DAYS. 01/14/17 09:30 Gram Stain - Final Wound 01/12/17 09:00 Gram Stain - Final Wound Wound Culture - Final Escherichia Coli Streptococcus Viridans Staphylococcus Coagulase Neg 01/11/17 21:00 Urine Culture - Final Urine - Urine Clean Catch Staphylococcus Epidermidis PHYSICAL EXAMINATION: Constitutional: Yes: No Distress, Calm Cardiovascular: Yes: Regular Rate and Rhythm Respiratory: Yes: CTA Bilaterally Gastrointestinal: Yes: Soft. Dressing in place. No: Distention, Tenderness Edema: No Psychiatric: Yes: Alert, Oriented ASSESSMENT & PLAN: - Continue antibiotics. - H/H stable. - Follow up labs. - Patient to be started on clear liquid diet today. - Daily out of bed to chair. - Physical Therapy. - Pain control. - Off anticoagulation. - Will follow. Documentation prepared by Yani London, acting as a medical claims representative for Mehdi Alonso MD. 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
[2017-01-15] MEDS: AMINO ACIDS 4.25%/D5W 1,000 ML IV SCH ×3 (08:55→22:35)
[2017-01-15] MEDS: CEFTRIAXONE 100 ML IVPB SCH (09:13)
--- NOTE | 2017-01-15 09:18 | PN ---
Progress Note, Physician - Current Medication List Current Medications: Active Medications Hydromorphone HCl (Dilaudid Injection -) 2 mg IVPB Q4H PRN PRN Reason: PAIN Last Admin: 01/15/17 08:43 Dose: 2 mg Metronidazole (Flagyl 500mg Premixed Ivpb -) 100 mls @ 100 mls/hr IVPB Q8H-IV [facility] Last Admin: 01/15/17 01:06 Dose: 100 mls/hr Amino Acids (Clinimix -) 1,000 mls @ 83 mls/hr IV Q12H [facility] Last Admin: 01/15/17 08:55 Dose: 83 mls/hr Ceftriaxone Sodium (Rocephin 2gm Ivpb (Pre-Docked)) 100 mls @ 200 mls/hr IVPB DAILY [facility] Lorazepam (Ativan Injection -) 0.5 mg IVPUSH Q6H PRN PRN Reason: ANXIETY Metoprolol Tartrate (Lopressor Injection -) 5 mg IVPUSH Q4H [facility] Last Admin: 01/15/17 06:59 Dose: 5 mg Multivitamins/Minerals (Infuvite Adult -) 10 ml IV DAILY [facility] Last Admin: 01/14/17 12:01 Dose: 10 ml Ondansetron HCl (Zofran Injection) 4 mg IVPB Q6H PRN PRN Reason: NAUSEA AND/OR VOMITING - Objective Vital Signs: Vital Signs Temperature 98.5 F 01/15/17 07:25 Pulse Rate 90 01/15/17 07:25 Respiratory Rate 20 01/15/17 07:25 Blood Pressure 146/78 01/15/17 07:25 O2 Sat by Pulse Oximetry (%) 98 01/15/17 07:32 Labs: CBC, BMP 01/15/17 05:35 01/13/17 05:38 INR, PTT INR 1.04 (0.82-1.09) 01/07/17 21:30 Assessment/Plan Surgery: Patient is hungry , wants oatmeal. Had a large bowel movement, Abdomen is soft, not distended. Wound with minimal drainage, dressing changed. Wound culture is positive for E.Coli. Strep viridans, and Staoh. He is cephtriaxone and metranidazole. Has urinary urgency, unable to hold to go to the bathroom. Pathology : Tubular adenoma 0.9 cm at the appendiceal orifice, benign.
[2017-01-15 09:28] LABS: HYPOCHROMIA 2+; TARGET CELLS 1+
[2017-01-15 09:29] LABS: ACANTHOCYTES 1+
[2017-01-15 09:30] LABS: ALBUMIN 2.6 g/dl (3.4-5.0); ANION GAP 9 (8-16); CALCIUM 8.8 mg/dL (8.5-10.1); CO2 29 mmol/L (21-32); COCKROFT - GAULT 106.41; CREATININE 0.9 mg/dL (0.7-1.3); GLUCOSE,RANDOM 150 mg/dL (74-106); SGOT/AST 13 U/L (15-37); SGPT/ALT 15 U/L (12-78)
[2017-01-15 09:32] LABS: ALK PHOS 49 U/L (45-117); BILIRUBIN,TOTAL 0.5 mg/dL (0.2-1.0)
[2017-01-15] MEDS: MULTIVIT INJ. ADULT COMBO WITH VIT K 1 COMBO 10 ML VIAL IV SCH (13:59)
--- NOTE | 2017-01-15 16:32 | PN ---
Progress Note, Physician History of Present Illness: More awake and alert No c/o abdominal pain NGT out Tolerating diet +BM No fever/ chills - Current Medication List Current Medications: Active Medications Hydromorphone HCl (Dilaudid Injection -) 2 mg IVPB Q4H PRN PRN Reason: PAIN Last Admin: 01/15/17 08:43 Dose: 2 mg Metronidazole (Flagyl 500mg Premixed Ivpb -) 100 mls @ 100 mls/hr IVPB Q8H-IV [facility] Last Admin: 01/15/17 09:13 Dose: 100 mls/hr Amino Acids (Clinimix -) 1,000 mls @ 83 mls/hr IV Q12H [facility] Last Admin: 01/15/17 13:59 Dose: 83 mls/hr Ceftriaxone Sodium (Rocephin 2gm Ivpb (Pre-Docked)) 100 mls @ 200 mls/hr IVPB DAILY [facility] Last Admin: 01/15/17 09:13 Dose: 200 mls/hr Lorazepam (Ativan Injection -) 0.5 mg IVPUSH Q6H PRN PRN Reason: ANXIETY Metoprolol Tartrate (Lopressor Injection -) 5 mg IVPUSH Q4H [facility] Last Admin: 01/15/17 14:06 Dose: 5 mg Multivitamins/Minerals (Infuvite Adult -) 10 ml IV DAILY [facility] Last Admin: 01/15/17 13:59 Dose: 10 ml Ondansetron HCl (Zofran Injection) 4 mg IVPB Q6H PRN PRN Reason: NAUSEA AND/OR VOMITING - Objective Vital Signs: Vital Signs Temperature 98.7 F 01/15/17 14:41 Pulse Rate 88 01/15/17 14:41 Respiratory Rate 20 01/15/17 14:41 Blood Pressure 144/82 01/15/17 14:41 O2 Sat by Pulse Oximetry (%) 99 01/15/17 11:27 Constitutional: Yes: No Distress Cardiovascular: Yes: Regular Rate and Rhythm, S1, S2 Respiratory: Yes: CTA Bilaterally Gastrointestinal: Yes: Normal Bowel Sounds, Soft, Other (+ surgical wound drainage). No: Tenderness Edema: No Labs: CBC, BMP 01/15/17 05:35 01/15/17 06:50 INR, PTT INR 1.04 (0.82-1.09) 01/07/17 21:30 Assessment/Plan Surgical wound infection S/P R hemicolectomy Leukocytosis S/P partial bowel obstruction v. ileus- resolved Continue ceftriaxone/ Flagyl
[2017-01-16] MEDS: METRONIDAZOLE 500 MG PREMIXED 100 ML IVPB SCH ×3 (02:16→17:29)
[2017-01-16] MEDS: METOPROLOL TARTRATE 5 MG/5 ML VIAL IVPUSH SCH ×2 (02:16→06:29)
[2017-01-16 07:05] LABS: BASOPHIL 0.7 % (0-2.0); EOSINOPHIL 5.9 % (0-4.5); MCH 24.9 pg (25.7-33.7); MCHC 32.9 g/dl (32.0-35.9); MEAN CELL VOLUME 75.9 fl (80-96); MEAN PLT VOLUME 7.8 fl (7.5-11.1); NEUTROPHILS 70.7 % (42.8-82.8); PLATELET COUNT 428 K/MM3 (134-434); RDW 24.2 % (11.9-15.9); WHITE BLOOD COUNT 12.3 K/mm3 (4.0-10.0)
[2017-01-16 07:54] LABS: ALBUMIN 2.6 g/dl (3.4-5.0); ALK PHOS 46 U/L (45-117); ANION GAP 10 (8-16); BILIRUBIN,TOTAL 0.4 mg/dL (0.2-1.0); CALCIUM 8.4 mg/dL (8.5-10.1); CO2 28 mmol/L (21-32); COCKROFT - GAULT 119.71; CREATININE 0.8 mg/dL (0.7-1.3); GLUCOSE,RANDOM 126 mg/dL (74-106); SGOT/AST 10 U/L (15-37); SGPT/ALT 12 U/L (12-78); TOT PROT 5.8 g/dl (6.4-8.2)
[2017-01-16] MEDS ORDERED: PT OWN MED DRAWER 7, Y5N ONE (08:37)
[2017-01-16] MEDS: HYDROmorphone HCL CARPU-JECT 2 MG/1 ML DISP.SYRIN IVPB PRN (08:41)
[2017-01-16] MEDS: CEFTRIAXONE 100 ML IVPB SCH (09:10)
[2017-01-16] MEDS: AMINO ACIDS 4.25%/D5W 1,000 ML IV SCH ×2 (09:19→21:27)
[2017-01-16] MEDS: MULTIVIT INJ. ADULT COMBO WITH VIT K 1 COMBO 10 ML VIAL IV SCH (10:16)
--- NOTE | 2017-01-16 10:53 | PN ---
Progress Note, Physician Chief Complaint: has increased belching , hiccups no abd pain tolerating full liquids had a bm - Current Medication List Current Medications: Active Medications Hydromorphone HCl (Dilaudid Injection -) 2 mg IVPB Q4H PRN PRN Reason: PAIN Last Admin: 01/16/17 08:41 Dose: 2 mg Metronidazole (Flagyl 500mg Premixed Ivpb -) 100 mls @ 100 mls/hr IVPB Q8H-IV [facility] Last Admin: 01/16/17 09:10 Dose: 100 mls/hr Amino Acids (Clinimix -) 1,000 mls @ 83 mls/hr IV Q12H [facility] Last Admin: 01/16/17 09:19 Dose: Not Given Ceftriaxone Sodium (Rocephin 2gm Ivpb (Pre-Docked)) 100 mls @ 200 mls/hr IVPB DAILY [facility] Last Admin: 01/16/17 09:10 Dose: 200 mls/hr Lorazepam (Ativan Injection -) 0.5 mg IVPUSH Q6H PRN PRN Reason: ANXIETY Metoprolol Tartrate (Lopressor Injection -) 5 mg IVPUSH Q4H [facility] Last Admin: 01/16/17 06:29 Dose: 5 mg Multivitamins/Minerals (Infuvite Adult -) 10 ml IV DAILY [facility] Last Admin: 01/16/17 10:16 Dose: 10 ml Ondansetron HCl (Zofran Injection) 4 mg IVPB Q6H PRN PRN Reason: NAUSEA AND/OR VOMITING Last Admin: 01/15/17 21:21 Dose: 4 mg - Objective Vital Signs: Vital Signs Temperature 98.6 F 01/16/17 09:10 Pulse Rate 92 H 01/16/17 09:10 Respiratory Rate 18 01/16/17 09:10 Blood Pressure 129/65 01/16/17 09:10 O2 Sat by Pulse Oximetry (%) 99 01/15/17 20:36 Constitutional: Yes: No Distress Cardiovascular: Yes: Regular Rate and Rhythm Respiratory: Yes: CTA Bilaterally Gastrointestinal: Yes: Normal Bowel Sounds, Soft, Other (soakage of dressing). No: Tenderness Edema: No Labs: CBC, BMP 01/16/17 05:35 01/16/17 05:35 INR, PTT INR 1.04 (0.82-1.09) 01/07/17 21:30 Problem List - Problems (1) Anemia due to acute blood loss Code(s): D62 - ACUTE POSTHEMORRHAGIC ANEMIA (2) Bladder cancer Code(s): C67.9 - MALIGNANT NEOPLASM OF BLADDER, UNSPECIFIED Qualifiers: Bladder location: overlapping sites Qualified Code(s): C67.8 - Malignant neoplasm of overlapping sites of bladder (3) HTN (hypertension) Code(s): I10 - ESSENTIAL (PRIMARY) HYPERTENSION Qualifiers: Hypertension type: essential hypertension Qualified Code(s): I10 - Essential (primary) hypertension (4) New onset a-fib Code(s): I48.91 - UNSPECIFIED ATRIAL FIBRILLATION (5) Rapid atrial fibrillation Code(s): I48.91 - UNSPECIFIED ATRIAL FIBRILLATION Assessment/Plan PLAN tolerating PO-- advance per surgeon IV antibiotics for wound infection clinimix replace potassium OOB daily pain control Change IV Lopressor to PO pain control Incentive spirometry PT eval Echo noted
[2017-01-16] MEDS ORDERED: OXYCODONE/APAP 5/325MG COMBO TABLET PO PRN (11:59)
[2017-01-16] MEDS ORDERED: ACETAMINOPHEN 325 MG TABLET (FP) PO PRN (12:00)
[2017-01-16] MEDS ORDERED: oxyCODONE HCL 5 MG TABLET PO PRN (12:00)
[2017-01-16] MEDS ORDERED: PANTOPRAZOLE SODIUM 40 MG in SODIUM CHLORIDE 100 ML IVPB SCH (12:00)
[2017-01-16] MEDS ORDERED: POTASSIUM CHLORIDE TABS 20 MEQ TABLET.ER (FP) PO ONE ×2 (12:15→14:30)
--- NOTE | 2017-01-16 12:55 | PN ---
Progress Note, Physician - Current Medication List Current Medications: Active Medications Metronidazole (Flagyl 500mg Premixed Ivpb -) 100 mls @ 100 mls/hr IVPB Q8H-IV [facility] Last Admin: 01/16/17 09:10 Dose: 100 mls/hr Amino Acids (Clinimix -) 1,000 mls @ 83 mls/hr IV Q12H [facility] Last Admin: 01/16/17 09:19 Dose: Not Given Ceftriaxone Sodium (Rocephin 2gm Ivpb (Pre-Docked)) 100 mls @ 200 mls/hr IVPB DAILY [facility] Last Admin: 01/16/17 09:10 Dose: 200 mls/hr Pantoprazole Sodium (Protonix 40mg Ivpb (Pre-Docked)) 100 mls @ 200 mls/hr IVPB DAILY [facility] Metoprolol Tartrate (Lopressor -) 25 mg PO BID [facility] Multivitamins/Minerals (Infuvite Adult -) 10 ml IV DAILY [facility] Last Admin: 01/16/17 10:16 Dose: 10 ml Ondansetron HCl (Zofran Injection) 4 mg IVPB Q6H PRN PRN Reason: NAUSEA AND/OR VOMITING Last Admin: 01/15/17 21:21 Dose: 4 mg Oxycodone/Acetaminophen (Percocet 5/325 -) 1 combo PO Q6H PRN PRN Reason: PAIN - Objective Vital Signs: Vital Signs Temperature 98.6 F 01/16/17 09:10 Pulse Rate 92 H 01/16/17 09:10 Respiratory Rate 18 01/16/17 09:10 Blood Pressure 129/65 01/16/17 09:10 O2 Sat by Pulse Oximetry (%) 99 01/16/17 09:10 Labs: CBC, BMP 01/16/17 05:35 01/16/17 05:35 INR, PTT INR 1.04 (0.82-1.09) 01/07/17 21:30 Assessment/Plan Surgery: patient is comfortable, tolerating oral feeding, having bowel moveents. C/o hiccups. WBC 15105. Hematocrit is normal. Intestinal obstruction resolved, Wound infection , on antibiotics.
[2017-01-16] MEDS: PANTOPRAZOLE SODIUM 100 ML IVPB SCH (15:21)
[2017-01-16] MEDS: METOPROLOL TARTRATE 25 MG TABLET (FP) PO SCH (21:27)
[2017-01-17] MEDS: METRONIDAZOLE 500 MG PREMIXED 100 ML IVPB SCH ×3 (01:00→09:05)
[2017-01-17 07:13] LABS: CALCIUM 8.5 mg/dL (8.5-10.1); COCKROFT - GAULT 119.71; CREATININE 0.8 mg/dL (0.7-1.3)
--- NOTE | 2017-01-17 07:41 | PN ---
Progress Note, Physician - Current Medication List Current Medications: Active Medications Metronidazole (Flagyl 500mg Premixed Ivpb -) 100 mls @ 100 mls/hr IVPB Q8H-IV [facility] Last Admin: 01/16/17 17:29 Dose: 100 mls/hr Amino Acids (Clinimix -) 1,000 mls @ 83 mls/hr IV Q12H [facility] Last Admin: 01/16/17 21:27 Dose: 83 mls/hr Ceftriaxone Sodium (Rocephin 2gm Ivpb (Pre-Docked)) 100 mls @ 200 mls/hr IVPB DAILY [facility] Last Admin: 01/16/17 09:10 Dose: 200 mls/hr Pantoprazole Sodium (Protonix 40mg Ivpb (Pre-Docked)) 100 mls @ 200 mls/hr IVPB DAILY [facility] Last Admin: 01/16/17 15:21 Dose: 200 mls/hr Metoprolol Tartrate (Lopressor -) 25 mg PO BID [facility] Last Admin: 01/16/17 21:27 Dose: 25 mg Multivitamins/Minerals (Infuvite Adult -) 10 ml IV DAILY [facility] Last Admin: 01/16/17 10:16 Dose: 10 ml Ondansetron HCl (Zofran Injection) 4 mg IVPB Q6H PRN PRN Reason: NAUSEA AND/OR VOMITING Last Admin: 01/15/17 21:21 Dose: 4 mg Oxycodone/Acetaminophen (Percocet 5/325 -) 1 combo PO Q6H PRN PRN Reason: PAIN - Objective Vital Signs: Vital Signs Temperature 99.3 F 01/17/17 02:16 Pulse Rate 82 01/17/17 06:00 Respiratory Rate 20 01/17/17 06:00 Blood Pressure 157/81 01/17/17 06:00 O2 Sat by Pulse Oximetry (%) 99 01/16/17 21:00 Labs: CBC, BMP 01/17/17 05:35 INR, PTT INR 1.04 (0.82-1.09) 01/07/17 21:30 Assessment/Plan Surgery: Patient is tolerating diet. [place] [address]. Continue antibiotics,. Discharge planning , once WBC is normal . Social service, consult.
[2017-01-17 08:31] LABS: MCH 25.2 pg (25.7-33.7); MCHC 33.1 g/dl (32.0-35.9); MEAN CELL VOLUME 75.9 fl (80-96); MEAN PLT VOLUME 7.9 fl (7.5-11.1); PLATELET COUNT 474 K/MM3 (134-434); WHITE BLOOD COUNT 13.1 K/mm3 (4.0-10.0)
--- NOTE | 2017-01-17 09:00 | PN ---
Progress Note, Physician Chief Complaint: has belching , hiccups no abd pain tolerating diet had a bm at bedside no c/o pain wants to go home - Current Medication List Current Medications: Active Medications Metronidazole (Flagyl 500mg Premixed Ivpb -) 100 mls @ 100 mls/hr IVPB Q8H-IV [facility] Last Admin: 01/16/17 17:29 Dose: 100 mls/hr Ceftriaxone Sodium (Rocephin 2gm Ivpb (Pre-Docked)) 100 mls @ 200 mls/hr IVPB DAILY [facility] Last Admin: 01/16/17 09:10 Dose: 200 mls/hr Pantoprazole Sodium (Protonix 40mg Ivpb (Pre-Docked)) 100 mls @ 200 mls/hr IVPB DAILY [facility] Last Admin: 01/16/17 15:21 Dose: 200 mls/hr Metoprolol Tartrate (Lopressor -) 25 mg PO BID [facility] Last Admin: 01/16/17 21:27 Dose: 25 mg Multivitamins/Minerals (Infuvite Adult -) 10 ml IV DAILY [facility] Last Admin: 01/16/17 10:16 Dose: 10 ml Ondansetron HCl (Zofran Injection) 4 mg IVPB Q6H PRN PRN Reason: NAUSEA AND/OR VOMITING Last Admin: 01/15/17 21:21 Dose: 4 mg Oxycodone/Acetaminophen (Percocet 5/325 -) 1 combo PO Q6H PRN PRN Reason: PAIN - Objective Vital Signs: Vital Signs Temperature 99.3 F 01/17/17 02:16 Pulse Rate 82 01/17/17 06:00 Respiratory Rate 20 01/17/17 06:00 Blood Pressure 157/81 01/17/17 06:00 O2 Sat by Pulse Oximetry (%) 99 01/16/17 21:00 Constitutional: Yes: No Distress Cardiovascular: Yes: Regular Rate and Rhythm Respiratory: Yes: CTA Bilaterally Gastrointestinal: Yes: Normal Bowel Sounds, Soft, Other (wound noted-- open wound at distal end-- no drainage , faby present proximally). No: Distention , Tenderness Edema: No Labs: CBC, BMP 01/17/17 05:35 01/17/17 05:35 INR, PTT INR 1.04 (0.82-1.09) 05/25/17 21:30 Problem List - Problems (1) Anemia due to acute blood loss Code(s): D62 - ACUTE POSTHEMORRHAGIC ANEMIA (2) Bladder cancer Code(s): C67.9 - MALIGNANT NEOPLASM OF BLADDER, UNSPECIFIED Qualifiers: Bladder location: overlapping sites Qualified Code(s): C67.8 - Malignant neoplasm of overlapping sites of bladder (3) HTN (hypertension) Code(s): I10 - ESSENTIAL (PRIMARY) HYPERTENSION Qualifiers: Hypertension type: essential hypertension Qualified Code(s): I10 - Essential (primary) hypertension (4) New onset a-fib Code(s): I48.91 - UNSPECIFIED ATRIAL FIBRILLATION (5) Rapid atrial fibrillation Code(s): I48.91 - UNSPECIFIED ATRIAL FIBRILLATION Assessment/Plan PLAN tolerating PO-- advance per surgeon IV antibiotics for wound infection-- change to PO clinimix dc encouraged fluids orally OOB daily pain control pain control Incentive spirometry PT eval afebrile
[2017-01-17] MEDS: PANTOPRAZOLE SODIUM 100 ML IVPB SCH (09:04)
[2017-01-17] MEDS: CEFTRIAXONE 100 ML IVPB SCH (09:05)
[2017-01-17] MEDS: METOPROLOL TARTRATE 25 MG TABLET (FP) PO SCH ×2 (09:05→21:54)
[2017-01-17] MEDS: MULTIVIT INJ. ADULT COMBO WITH VIT K 1 COMBO 10 ML VIAL IV SCH (09:06)
[2017-01-17 10:55] LABS: METAMYELOCYTE 1 % (0-2)
[2017-01-17 10:56] LABS: PLATELET ESTIMATE INCREASED (NORMAL)
[2017-01-17] MEDS: CEFUROXIME AXETIL 500 MG TABLET PO SCH ×2 (11:35→21:54)
--- NOTE | 2017-01-17 12:53 | PN ---
Progress Note, Physician Chief Complaint: Pt A&Ox3; less abdominal pain, though had transient "burning" when he ate pea soup. No chest pain or dyspnea. History of Present Illness: The patient is a 66-year-old black man, accompanied by , with a significant past medical history of hypertension and bladder Ca, who presents to the emergency department via EMS for further evaluation of hematuria. He underwent a cystoscopy in May- no chemotherapy/radiation since. He admits that he has been experiencing intermittent episodes of hematuria since August. His episodes are described as noted light pink urine without clots. However, over the past 3 weeks, he notes that his hematuria has worsen as it has become heavier,with noted dark urine and clots. He also notes that his symptoms are associated with headaches and lightheadedness and chills. He also notes that his lightheadedness is exacerbated on exertion (when walking). He denies fever, cough, shortness of breath , chest pain, palpitations, neck pain, leg pain, abdominal pain, nausea, vomiting, diarrhea, dysuria, flank pain, urinary hesitancy, urgency, frequency, penile discharge, testicular pain. He has a surgery scheduled for 12/04/[address] Harmon for tumor removal of his appendix and small bowel - patient refused. Allergies: No Known Drug Allergies Past Surgical History: Cystoscopy- 05/31. 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 Social History: No tobacco, ETOH and recreational drug use. Primary Care Physician: Dr. Mehdi Alonso [phone] [employer] Driver: Dr. Roberto Patel [phone] - Current Medication List Current Medications: Active Medications Cefuroxime Axetil (Ceftin -) 500 mg PO BID [facility] Last Admin: 01/17/17 11:35 Dose: Not Given Metoprolol Tartrate (Lopressor -) 25 mg PO BID [facility] Last Admin: 01/17/17 09:05 Dose: 25 mg Metronidazole (Flagyl -) 500 mg PO TID [facility] Multivitamins/Minerals/Vitamin C (Tab-A-Vit -) 1 tab PO DAILY [facility] Ondansetron HCl (Zofran Injection) 4 mg IVPB Q6H PRN PRN Reason: NAUSEA AND/OR VOMITING Last Admin: 01/15/17 21:21 Dose: 4 mg Oxycodone/Acetaminophen (Percocet 5/325 -) 1 combo PO Q6H PRN PRN Reason: PAIN Pantoprazole Sodium (Protonix -) 40 mg PO DAILY [facility] - Objective Vital Signs: Vital Signs Temperature 99.3 F 01/17/17 02:16 Pulse Rate 82 01/17/17 06:00 Respiratory Rate 20 01/17/17 06:00 Blood Pressure 157/81 01/17/17 06:00 O2 Sat by Pulse Oximetry (%) 99 01/16/17 21:00 Constitutional: Yes: Calm Eyes: Yes: WNL HENT: Yes: WNL Neck: Yes: WNL Cardiovascular: Yes: Regular Rate and Rhythm Respiratory: Yes: Regular Gastrointestinal: Yes: Soft ...Rectal Exam: Yes: Deferred Genitourinary: No: Anuria Musculoskeletal: Yes: Muscle Pain, Muscle Weakness Extremities: Yes: Cool Edema: No Peripheral Pulses WNL: Yes Integumentary: Yes: Incision Wound/Incision: Yes: Dressing Dry and Intact Neurological: Yes: Alert, Oriented, Weakness Psychiatric: Yes: Alert, Oriented Labs: CBC, BMP 01/17/17 05:35 01/17/17 05:35 INR, PTT INR 1.04 (0.82-1.09) 01/07/17 21:30 Problem List - Problems (1) Rapid atrial fibrillation Assessment/Plan: Remains in sinus rhythm. Continue metoprolol tartrate IVP fror HR control, catecholamine supression; BP better-controlled. (Consider amiodarone if HR returns to AF with RVR and is refractory to metoprolol). ECHO: normal LVEF; mild LAE; moderate AR. Keep K+ 4-4.5, Mg 2-2.3, PO4 >2.5 Lipids well-controlled. Pain management. Code(s): I48.91 - UNSPECIFIED ATRIAL FIBRILLATION (2) Anemia Assessment/Plan: s/p PRBCs post-surgery. Code(s): D64.9 - ANEMIA, UNSPECIFIED (3) Bladder cancer Code(s): C67.9 - MALIGNANT NEOPLASM OF BLADDER, UNSPECIFIED Qualifiers: Qualified Code(s): C67.8 - Malignant neoplasm of overlapping sites of bladder (4) HTN (hypertension) Assessment/Plan: on metoprolol (HTN; AF). Pain management. BP better-controlled. 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 Pain management. Code(s): K66.8 - OTHER SPECIFIED DISORDERS OF PERITONEUM (9) S/P left hemicolectomy Assessment/Plan: f/u with surgeon. Code(s): Z90.49 - ACQUIRED ABSENCE OF OTHER SPECIFIED PARTS OF DIGESTIVE TRACT
[2017-01-17] MEDS: metroNIDAZOLE 250 MG TABLET PO SCH ×2 (14:41→21:54)
--- NOTE | 2017-01-18 02:57 | PN ---
Progress Note, Physician Chief Complaint: Pt c/o pain at surgical site (dressing just changed); c/o being thirsty. History of Present Illness: The patient is a 66-year-old black man, accompanied by , with a significant past medical history of hypertension and bladder Ca, who presents to the emergency department via EMS for further evaluation of hematuria. He underwent a cystoscopy in May- no chemotherapy/radiation since. He admits that he has been experiencing intermittent episodes of hematuria since August. His episodes are described as noted light pink urine without clots. However, over the past 3 weeks, he notes that his hematuria has worsen as it has become heavier,with noted dark urine and clots. He also notes that his symptoms are associated with headaches and lightheadedness and chills. He also notes that his lightheadedness is exacerbated on exertion (when walking). He denies fever, cough, shortness of breath , chest pain, palpitations, neck pain, leg pain, abdominal pain, nausea, vomiting, diarrhea, dysuria, flank pain, urinary hesitancy, urgency, frequency, penile discharge, testicular pain. He has a surgery scheduled for 12/04/[address] Harmon for tumor removal of his appendix and small bowel - patient refused. Allergies: No Known Drug Allergies Past Surgical History: Cystoscopy- 05/31. 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 Social History: No tobacco, ETOH and recreational drug use. Primary Care Physician: Dr. Mehdi Alonso [phone] Metal Drill Operator: Dr. Roberto Patel [phone] - Current Medication List Current Medications: Active Medications Acetaminophen (Tylenol -) 325 mg PO Q6H PRN PRN Reason: PAIN Cefuroxime Axetil (Ceftin -) 500 mg PO BID [facility] Last Admin: 01/17/17 21:54 Dose: 500 mg Metoprolol Tartrate (Lopressor -) 25 mg PO BID [facility] Last Admin: 01/17/17 21:54 Dose: 25 mg Metronidazole (Flagyl -) 500 mg PO TID [facility] Last Admin: 01/17/17 21:54 Dose: 500 mg Multivitamins/Minerals/Vitamin C (Tab-A-Vit -) 1 tab PO DAILY [facility] Ondansetron HCl (Zofran Injection) 4 mg IVPB Q6H PRN PRN Reason: NAUSEA AND/OR VOMITING Last Admin: 01/15/17 21:21 Dose: 4 mg Oxycodone HCl (Roxicodone -) 5 mg PO Q6H PRN PRN Reason: PAIN Pantoprazole Sodium (Protonix -) 40 mg PO DAILY [facility] - Objective Vital Signs: Vital Signs Temperature 100.0 F H 01/17/17 20:45 Pulse Rate 83 01/17/17 20:45 Respiratory Rate 20 01/17/17 20:45 Blood Pressure 121/78 01/17/17 20:45 O2 Sat by Pulse Oximetry (%) 97 01/17/17 20:09 Constitutional: Yes: Anxious, Mild Distress Eyes: Yes: WNL HENT: Yes: WNL Neck: Yes: Thyromegaly Cardiovascular: Yes: S1, S2 Respiratory: Yes: Diminished Gastrointestinal: Yes: Distention, Tenderness ...Rectal Exam: Yes: Deferred Genitourinary: No: Anuria Musculoskeletal: Yes: Muscle Pain, Muscle Weakness Edema: No Peripheral Pulses WNL: Yes Integumentary: Yes: Incision Wound/Incision: Yes: Dressing Dry and Intact Neurological: Yes: Alert, Oriented, Weakness Psychiatric: Yes: Alert, Oriented Labs: CBC, BMP 01/17/17 05:35 01/17/17 05:35 INR, PTT INR 1.04 (0.82-1.09) 01/07/17 21:30 Abnormal Lab Results 01/17/17 01/17/17 01/17/17 05:35 05:35 05:35 WBC 13.1 H Hgb 10.7 L Hct 32.2 L MCV 75.9 L RDW 24.0 H Plt Count 474 H Eosinophils % 5.0 H PTT (Actin FS) 24.8 L BUN 21 H Random Glucose 154 H D Problem List - Problems (1) Rapid atrial fibrillation Assessment/Plan: Remains in sinus rhythm. Continue metoprolol tartrate IVP fror HR control, catecholamine supression. (Consider amiodarone if HR returns to AF with RVR and is refractory to metoprolol). ECHO: normal LVEF; mild LAE; moderate AR. Hct 34.6 Post PRBCs0. Keep K+ 4-4.5, Mg 2-2.3, PO4 >2.5 Mildly elevated free T3; f/u to be sure this does not become a factor in exacerbating AF. Lipids well-controlled. Pain management. Code(s): I48.91 - UNSPECIFIED ATRIAL FIBRILLATION (2) Anemia Assessment/Plan: HCt WNL after PRBCs. Code(s): D64.9 - ANEMIA, UNSPECIFIED (3) Bladder cancer Code(s): C67.9 - MALIGNANT NEOPLASM OF BLADDER, UNSPECIFIED Qualifiers: Qualified Code(s): C67.8 - Malignant neoplasm of overlapping sites of bladder (4) HTN (hypertension) Assessment/Plan: on metoprolol (HTN; AF). Pain management. Consider 2nd antihypertensive if BP remains elevated. 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
--- NOTE | 2017-01-18 03:08 | PN ---
Progress Note, Physician Chief Complaint: Pt A&Ox3; no complaints; eager to go home. History of Present Illness: The patient is a 66-year-old black man, accompanied by , with a significant past medical history of hypertension and bladder Ca, who presents to the emergency department via EMS for further evaluation of hematuria. He underwent a cystoscopy in May- no chemotherapy/radiation since. He admits that he has been experiencing intermittent episodes of hematuria since August. His episodes are described as noted light pink urine without clots. However, over the past 3 weeks, he notes that his hematuria has worsen as it has become heavier,with noted dark urine and clots. He also notes that his symptoms are associated with headaches and lightheadedness and chills. He also notes that his lightheadedness is exacerbated on exertion (when walking). He denies fever, cough, shortness of breath , chest pain, palpitations, neck pain, leg pain, abdominal pain, nausea, vomiting, diarrhea, dysuria, flank pain, urinary hesitancy, urgency, frequency, penile discharge, testicular pain. He has a surgery scheduled for 12/04/[address] Harmon for tumor removal of his appendix and small bowel - patient refused. Allergies: No Known Drug Allergies Past Surgical History: Cystoscopy- 05/31. 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 Social History: No tobacco, ETOH and recreational drug use. Primary Care Physician: Dr. Mehdi Alonso [phone] Beef Trimmer: Dr. Roberto Patel [phone] - Current Medication List Current Medications: Active Medications Acetaminophen (Tylenol -) 325 mg PO Q6H PRN PRN Reason: PAIN Cefuroxime Axetil (Ceftin -) 500 mg PO BID [facility] Last Admin: 01/17/17 21:54 Dose: 500 mg Metoprolol Tartrate (Lopressor -) 25 mg PO BID [facility] Last Admin: 01/17/17 21:54 Dose: 25 mg Metronidazole (Flagyl -) 500 mg PO TID [facility] Last Admin: 01/17/17 21:54 Dose: 500 mg Multivitamins/Minerals/Vitamin C (Tab-A-Vit -) 1 tab PO DAILY [facility] Ondansetron HCl (Zofran Injection) 4 mg IVPB Q6H PRN PRN Reason: NAUSEA AND/OR VOMITING Last Admin: 01/15/17 21:21 Dose: 4 mg Oxycodone HCl (Roxicodone -) 5 mg PO Q6H PRN PRN Reason: PAIN Pantoprazole Sodium (Protonix -) 40 mg PO DAILY [facility] - Objective Vital Signs: Vital Signs Temperature 100.0 F H 01/17/17 20:45 Pulse Rate 83 01/17/17 20:45 Respiratory Rate 20 01/17/17 20:45 Blood Pressure 121/78 01/17/17 20:45 O2 Sat by Pulse Oximetry (%) 97 01/17/17 20:09 Constitutional: Yes: No Distress Eyes: Yes: WNL HENT: Yes: WNL Neck: Yes: WNL Cardiovascular: Yes: Regular Rate and Rhythm Respiratory: Yes: Regular Gastrointestinal: Yes: Soft ...Rectal Exam: Yes: Deferred Genitourinary: No: Anuria Musculoskeletal: Yes: Muscle Weakness Extremities: Yes: Cool Edema: No Peripheral Pulses WNL: Yes Integumentary: Yes: Incision Wound/Incision: Yes: Well Approximated Neurological: Yes: Alert, Oriented, Weakness Labs: CBC, BMP 01/17/17 05:35 01/17/17 05:35 INR, PTT INR 1.04 (0.82-1.09) 01/07/17 21:30 Abnormal Lab Results 01/17/17 01/17/17 01/17/17 05:35 05:35 05:35 WBC 13.1 H Hgb 10.7 L Hct 32.2 L MCV 75.9 L RDW 24.0 H Plt Count 474 H Eosinophils % 5.0 H PTT (Actin FS) 24.8 L BUN 21 H Random Glucose 154 H D Problem List - Problems (1) Rapid atrial fibrillation Assessment/Plan: Remains in sinus rhythm. Continue PO metoprolol (may change to succinate for once daily dosing) for HR control, catecholamine supression; BP better-controlled. ECHO: normal LVEF; mild LAE; moderate AR. Keep K+ 4-4.5, Mg 2-2.3, PO4 >2.5 Lipids well-controlled. Pain management. Code(s): I48.91 - UNSPECIFIED ATRIAL FIBRILLATION (2) Anemia Assessment/Plan: s/p PRBCs post-surgery. Code(s): D64.9 - ANEMIA, UNSPECIFIED (3) Bladder cancer Code(s): C67.9 - MALIGNANT NEOPLASM OF BLADDER, UNSPECIFIED Qualifiers: Qualified Code(s): C67.8 - Malignant neoplasm of overlapping sites of bladder (4) HTN (hypertension) Assessment/Plan: on metoprolol (HTN; AF). Pain management. BP better-controlled. Physical therapy. 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 Pain management. Code(s): K66.8 - OTHER SPECIFIED DISORDERS OF PERITONEUM (9) S/P left hemicolectomy Assessment/Plan: f/u with surgeon. Code(s): Z90.49 - ACQUIRED ABSENCE OF OTHER SPECIFIED PARTS OF DIGESTIVE TRACT
[2017-01-18] MEDS: metroNIDAZOLE 250 MG TABLET PO SCH (06:06)
[2017-01-18 07:41] LABS: BASOPHIL 1.1 % (0-2.0); EOSINOPHIL 2.1 % (0-4.5); MCH 25.3 pg (25.7-33.7); MCHC 33.3 g/dl (32.0-35.9); MEAN CELL VOLUME 75.9 fl (80-96); MEAN PLT VOLUME 7.7 fl (7.5-11.1); NEUTROPHILS 72.1 % (42.8-82.8); PLATELET COUNT 547 K/MM3 (134-434); RDW 24.3 % (11.9-15.9); WHITE BLOOD COUNT 13.5 K/mm3 (4.0-10.0)
[2017-01-18 07:58] LABS: ALBUMIN 2.7 g/dl (3.4-5.0); ANION GAP 10 (8-16); CALCIUM 8.7 mg/dL (8.5-10.1); CO2 27 mmol/L (21-32); COCKROFT - GAULT 106.41; CREATININE 0.9 mg/dL (0.7-1.3); GLUCOSE,RANDOM 122 mg/dL (74-106); SGOT/AST 13 U/L (15-37); SGPT/ALT 14 U/L (12-78)
[2017-01-18 07:59] LABS: ALK PHOS 41 U/L (45-117); BILIRUBIN,TOTAL 0.3 mg/dL (0.2-1.0); TOT PROT 5.6 g/dl (6.4-8.2)
--- NOTE | 2017-01-18 08:42 | PN ---
Progress Note (short form) - Note Progress Note: Subjective Patient seen and examined. Chart reviewed. Feels better. Low grade temp. Wants to go home. Denies abdominal pain. Objective Last Vital Signs Temp Pulse Resp BP Pulse Ox 99.1 F 71 20 122/64 97 01/18/17 02:00 01/18/17 06:00 01/18/17 06:00 01/18/17 06:00 01/17/17 20:09 CBC, BMP 01/18/17 05:35 01/18/17 05:35 Laboratory Results - last 24 hr 01/17/17 01/18/17 01/18/17 05:35 05:35 05:35 WBC 13.5 H RBC 4.30 Hgb 10.9 L Hct 32.7 L MCV 75.9 L MCHC 33.3 RDW 24.3 H Plt Count 547 H MPV 7.7 Neutrophils % 67.0 72.1 Lymphocytes % 20.0 D 15.1 D Monocytes % 7.0 9.6 Eosinophils % 5.0 H 2.1 Basophils % 1.1 Metamyelocytes 1 Differential Comment Manual diff done Platelet Estimate Increased Sodium 139 Potassium 3.8 Chloride 102 Carbon Dioxide 27 Anion Gap 10 BUN 16 D Creatinine 0.9 Creat Clearance w eGFR > 60 Random Glucose 122 H D Calcium 8.7 Total Bilirubin 0.3 D AST 13 L D ALT 14 Alkaline Phosphatase 41 L Total Protein 5.6 L Albumin 2.7 L Physical ExamConstitutional: Yes: No Distress Cardiovascular: Yes: Regular Rate and Rhythm Respiratory: Yes: CTA Bilaterally Gastrointestinal: Yes: Normal Bowel Sounds, Soft. No: Distention, Tenderness Edema: No Problem List - Problems (1) Anemia due to acute blood loss Code(s): D62 - ACUTE POSTHEMORRHAGIC ANEMIA (2) Bladder cancer Code(s): C67.9 - MALIGNANT NEOPLASM OF BLADDER, UNSPECIFIED Qualifiers: Bladder location: overlapping sites Qualified Code(s): C67.8 - Malignant neoplasm of overlapping sites of bladder (3) HTN (hypertension) Code(s): I10 - ESSENTIAL (PRIMARY) HYPERTENSION Qualifiers: Hypertension type: essential hypertension Qualified Code(s): I10 - Essential (primary) hypertension (4) New onset a-fib Code(s): I48.91 - UNSPECIFIED ATRIAL FIBRILLATION (5) Rapid atrial fibrillation Code(s): I48.91 - UNSPECIFIED ATRIAL FIBRILLATION Assessment and Plan Clinically stable. Discussed with Dr. Obrien. Recommendations noted that he can he d/c'ed on abx. Will discuss with Dr. Harmon also If cleared by Dr. Harmon will d/c today. Will follow. Documentation prepared by Esha Fregoso, acting as a clinical medical transcriptionist for Mehdi Alonso MD. 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
[2017-01-18] MEDS: CEFUROXIME AXETIL 500 MG TABLET PO SCH (09:57)
[2017-01-18] MEDS: MULTIVITAMINS (DAILY MVI) TABLET (FP) PO SCH (09:58)
[2017-01-18] MEDS: METOPROLOL TARTRATE 25 MG TABLET (FP) PO SCH ×2 (09:58→21:26)
[2017-01-18] MEDS: PANTOPRAZOLE 40 MG TABLET (FP) PO SCH (09:58)
--- NOTE | 2017-01-18 10:02 | PN ---
Progress Note, Physician Chief Complaint: ID Now 10 days post op original hemicolectomy with complicating post op infection Now on ora cefuroxime and metronidazole stating he wants to go home. He feels well Offers no complaints T max 100-99 - Current Medication List Current Medications: Active Medications Acetaminophen (Tylenol -) 325 mg PO Q6H PRN PRN Reason: PAIN Cefuroxime Axetil (Ceftin -) 500 mg PO BID [facility] Last Admin: 01/17/17 21:54 Dose: 500 mg Metoprolol Tartrate (Lopressor -) 25 mg PO BID [facility] Last Admin: 01/17/17 21:54 Dose: 25 mg Metronidazole (Flagyl -) 500 mg PO TID [facility] Last Admin: 01/18/17 06:06 Dose: 500 mg Multivitamins/Minerals/Vitamin C (Tab-A-Vit -) 1 tab PO DAILY [facility] Ondansetron HCl (Zofran Injection) 4 mg IVPB Q6H PRN PRN Reason: NAUSEA AND/OR VOMITING Last Admin: 01/15/17 21:21 Dose: 4 mg Oxycodone HCl (Roxicodone -) 5 mg PO Q6H PRN PRN Reason: PAIN Pantoprazole Sodium (Protonix -) 40 mg PO DAILY [facility] - Objective Vital Signs: Vital Signs Temperature 99.1 F 01/18/17 02:00 Pulse Rate 71 01/18/17 06:00 Respiratory Rate 20 01/18/17 06:00 Blood Pressure 122/64 01/18/17 06:00 O2 Sat by Pulse Oximetry (%) 97 01/17/17 20:09 Eyes: Yes: WNL, Conjunctiva Clear HENT: Yes: WNL, Atraumatic Neck: Yes: WNL, Supple Cardiovascular: Yes: Regular Rate and Rhythm, S1. No: Murmur Respiratory: Yes: WNL, Regular, CTA Bilaterally Gastrointestinal: Yes: WNL, Normal Bowel Sounds, Soft, Other (OPen surgical wound with faby and area of open drainage no erythema or fluctuance). No: Tenderness Labs: CBC, BMP 01/18/17 05:35 01/18/17 05:35 INR, PTT INR 1.04 (0.82-1.09) 01/07/17 21:30 Assessment/Plan Microbiology 01/14/17 09:30 Wound Gram Stain - Final 01/14/17 09:30 Wound Wound Culture - Final Staphylococcus Coagulase Neg Bacteroides Fragilis 01/12/17 09:00 Wound Gram Stain - Final 01/12/17 09:00 Wound Wound Culture - Final Escherichia Coli Streptococcus Viridans Staphylococcus Coagulase Neg 01/11/17 21:00 Urine - Urine Clean Catch Urine Culture - Final Staphylococcus Epidermidis 01/11/17 19:50 Blood - Arterial Blood Culture - Final NO GROWTH AFTER 5 DAYS INCUBATION 01/11/17 19:50 Blood - Arterial Blood Culture - Final NO GROWTH AFTER 5 DAYS INCUBATION Laboratory Tests 01/18/17 01/18/17 05:35 05:35 WBC 13.5 H Hgb 10.9 L Hct 32.7 L Plt Count 547 H BUN 16 D Assessment Post op wound infection cultures reviewed Clinical appears to be doing well Appears to be a superficial wound infection ( "skin juliocesar " staph coag neg ) Yet in a wound infection scenario this should be treated. He still has low grade temp and WBC elevation. I think he can be discharged but on combination of Linezolid and Augmentin 600mg bid/ 875 bid for 7 days ESR and CRP Micah VALVERDE
[2017-01-18] MEDS: LINEZOLID 600 MG TABLET (RESTRICTED TO ID) PO SCH ×2 (11:39→21:26)
--- NOTE | 2017-01-18 13:21 | PN ---
Progress Note, Physician - Current Medication List Current Medications: Active Medications Acetaminophen (Tylenol -) 325 mg PO Q6H PRN PRN Reason: PAIN Amoxicillin/Clavulanate Potassium (Augmentin - 875mg Tablet) 1 tab PO BID@0800, 1730 [facility] Linezolid (Zyvox (Restricted To Id) -) 600 mg PO BID [facility] Last Admin: 01/18/17 11:39 Dose: 600 mg Metoprolol Tartrate (Lopressor -) 25 mg PO BID [facility] Last Admin: 01/18/17 09:58 Dose: 25 mg Multivitamins/Minerals/Vitamin C (Tab-A-Vit -) 1 tab PO DAILY [facility] Last Admin: 01/18/17 09:58 Dose: 1 tab Ondansetron HCl (Zofran Injection) 4 mg IVPB Q6H PRN PRN Reason: NAUSEA AND/OR VOMITING Last Admin: 01/15/17 21:21 Dose: 4 mg Oxycodone HCl (Roxicodone -) 5 mg PO Q6H PRN PRN Reason: PAIN Pantoprazole Sodium (Protonix -) 40 mg PO DAILY [facility] Last Admin: 01/18/17 09:58 Dose: 40 mg - Objective Vital Signs: Vital Signs Temperature 99.1 F 01/18/17 10:00 Pulse Rate 76 01/18/17 10:00 Respiratory Rate 18 01/18/17 10:00 Blood Pressure 140/87 01/18/17 10:00 O2 Sat by Pulse Oximetry (%) 97 01/17/17 20:09 Labs: CBC, BMP 01/18/17 05:35 01/18/17 05:35 INR, PTT INR 1.04 (0.82-1.09) 01/07/17 21:30 Assessment/Plan Surgery: Patient is feeling better, wants to go home. T [place] 100 [place] [address]. Abdominal wound is clean , no purulent drainage seen. Will continue with IV antibiotics for another 24 hours and discharge him home tomorrow. Patient and his informed.
--- NOTE | 2017-01-18 13:35 | PN ---
Progress Note, Physician History of Present Illness: The patient is a 66-year-old man, accompanied by , with a significant past medical history of hypertension and bladder Ca who presents to the emergency department via EMS for further evaluation of hematuria. He underwent a cystoscopy for in May- no chemotherapy/radiation since. He admits that he has been experiencing intermittent episodes of hematuria since August. His episodes are described as noted light pink urine without clots. However, over the past 3 weeks, he notes that his hematuria has worsen as it has become heavier,with noted dark urine and clots. He also notes that his symptoms are associated with headaches and lightheadedness and chills. He also notes that his lightheadedness is exacerbated on exertion (when walking). He denies fever, cough, shortness of breath , chest pain, palpitations, neck pain, leg pain, abdominal pain, nausea, vomiting, diarrhea, dysuria, flank pain, urinary hesitancy, urgency, frequency, penile discharge, testicular pain. He has a surgery scheduled for 12/04/[address] Harmon for tumor removal of his appendix and small bowel - patient refused. Allergies: No Known Drug Allergies Past Surgical History: Cystoscopy- 05/31. 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 Social History: No tobacco, ETOH and recreational drug use. Primary Care Physician: Dr. Mehdi Alonso [phone] [employer] Insight And Analytics Manager: Dr. Roberto Patel [phone] Urologist: Dr. Kp Burks [phone] General Surgeon: Dr. Duy Harmon [phone] Patient subsequently underwent elective right hemicolectomy on 01/08/2017 Post of developed leukocytosis and today AF with RVR. Transfered to telemetry for further management. Case d/w resident dr. Reed - Current Medication List Current Medications: Active Medications Acetaminophen (Tylenol -) 325 mg PO Q6H PRN PRN Reason: PAIN Amoxicillin/Clavulanate Potassium (Augmentin - 875mg Tablet) 1 tab PO BID@0800, 1730 [facility] Linezolid (Zyvox (Restricted To Id) -) 600 mg PO BID [facility] Last Admin: 01/18/17 11:39 Dose: 600 mg Metoprolol Tartrate (Lopressor -) 25 mg PO BID [facility] Last Admin: 01/18/17 09:58 Dose: 25 mg Multivitamins/Minerals/Vitamin C (Tab-A-Vit -) 1 tab PO DAILY [facility] Last Admin: 01/18/17 09:58 Dose: 1 tab Ondansetron HCl (Zofran Injection) 4 mg IVPB Q6H PRN PRN Reason: NAUSEA AND/OR VOMITING Last Admin: 01/15/17 21:21 Dose: 4 mg Oxycodone HCl (Roxicodone -) 5 mg PO Q6H PRN PRN Reason: PAIN Pantoprazole Sodium (Protonix -) 40 mg PO DAILY [facility] Last Admin: 01/18/17 09:58 Dose: 40 mg - Objective Vital Signs: Vital Signs Temperature 99.1 F 01/18/17 10:00 Pulse Rate 76 01/18/17 10:00 Respiratory Rate 18 01/18/17 10:00 Blood Pressure 140/87 01/18/17 10:00 O2 Sat by Pulse Oximetry (%) 97 01/17/17 20:09 Eyes: Yes: WNL, Conjunctiva Clear, EOM Intact HENT: Yes: WNL, Atraumatic, Normocephalic Neck: Yes: WNL, Supple, Trachea Midline Cardiovascular: Yes: WNL, Regular Rate and Rhythm Respiratory: Yes: WNL, Regular, CTA Bilaterally Gastrointestinal: Yes: WNL, Normal Bowel Sounds Genitourinary: Yes: WNL Musculoskeletal: Yes: WNL Extremities: Yes: WNL Edema: No Integumentary: Yes: WNL Neurological: Yes: WNL, Alert, Oriented ...Motor Strength: WNL Psychiatric: Yes: WNL Labs: CBC, BMP 01/18/17 05:35 01/18/17 05:35 INR, PTT INR 1.04 (0.82-1.09) 01/07/17 21:30 Problem List - Problems (1) Anemia Code(s): D64.9 - ANEMIA, UNSPECIFIED (2) Anemia due to acute blood loss Code(s): D62 - ACUTE POSTHEMORRHAGIC ANEMIA (3) Bladder cancer Code(s): C67.9 - MALIGNANT NEOPLASM OF BLADDER, UNSPECIFIED Qualifiers: Qualified Code(s): C67.8 - Malignant neoplasm of overlapping sites of bladder (4) Bladder tumor Code(s): D49.4 - NEOPLASM OF UNSPECIFIED BEHAVIOR OF BLADDER (5) Gross hematuria Code(s): R31.0 - GROSS HEMATURIA (6) HTN (hypertension) Code(s): I10 - ESSENTIAL (PRIMARY) HYPERTENSION Qualifiers: Qualified Code(s): I10 - Essential (primary) hypertension (7) Hematuria Code(s): R31.9 - HEMATURIA, UNSPECIFIED (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 Continue PO metoprolol (may change to succinate for once daily dosing) for HR control, catecholamine supression; BP better-controlled. ECHO: normal LVEF; mild LAE; moderate AR. Keep K+ 4-4.5, Mg 2-2.3, PO4 >2.5 Lipids well-controlled. Pain management. Code(s): I48.91 - UNSPECIFIED ATRIAL FIBRILLATION (2) Anemia Assessment/Plan: s/p PRBCs post-surgery. Code(s): D64.9 - ANEMIA, UNSPECIFIED (3) Bladder cancer Code(s): C67.9 - MALIGNANT NEOPLASM OF BLADDER, UNSPECIFIED Qualifiers: Qualified Code(s): C67.8 - Malignant neoplasm of overlapping sites of bladder (4) HTN (hypertension) Assessment/Plan: on metoprolol (HTN; AF). Pain management. BP better-controlled. Physical therapy. 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 Pain management. Code(s): K66.8 - OTHER SPECIFIED DISORDERS OF PERITONEUM (9) S/P left hemicolectomy Assessment/Plan: f/u with surgeon. Code(s): Z90.49 - ACQUIRED ABSENCE OF OTHER SPECIFIED PARTS OF DIGESTIVE TRACT
[2017-01-18] MEDS: AMOX TR/POT CLAV 875MG/125MG TABLETS (FP) PO SCH (17:07)
[2017-01-19 05:47] VITALS: TEMP 96.8
[2017-01-19] MEDS: AMOX TR/POT CLAV 875MG/125MG TABLETS (FP) PO SCH (07:41)
[2017-01-19 07:42] VITALS: BP 127/70
[2017-01-19 07:46] LABS: MCH 25.3 pg (25.7-33.7); MCHC 33.4 g/dl (32.0-35.9); MEAN CELL VOLUME 75.7 fl (80-96); PLATELET COUNT 572 K/MM3 (134-434); RDW 24.3 % (11.9-15.9); WHITE BLOOD COUNT 13.7 K/mm3 (4.0-10.0)
[2017-01-19] MEDS: PANTOPRAZOLE 40 MG TABLET (FP) PO SCH (09:40)
[2017-01-19] MEDS: LINEZOLID 600 MG TABLET (RESTRICTED TO ID) PO SCH (09:40)
[2017-01-19] MEDS: MULTIVITAMINS (DAILY MVI) TABLET (FP) PO SCH (09:40)
[2017-01-19] MEDS: METOPROLOL TARTRATE 25 MG TABLET (FP) PO SCH (09:40)
--- NOTE | 2017-01-19 11:04 | PN ---
Progress Note, Physician - Current Medication List Current Medications: Active Medications Acetaminophen (Tylenol -) 325 mg PO Q6H PRN PRN Reason: PAIN Amoxicillin/Clavulanate Potassium (Augmentin - 875mg Tablet) 1 tab PO BID@0800, 1730 [facility] Last Admin: 01/19/17 07:41 Dose: 1 tab Linezolid (Zyvox (Restricted To Id) -) 600 mg PO BID [facility] Last Admin: 01/19/17 09:40 Dose: 600 mg Metoprolol Tartrate (Lopressor -) 25 mg PO BID [facility] Last Admin: 01/19/17 09:40 Dose: 25 mg Multivitamins/Minerals/Vitamin C (Tab-A-Vit -) 1 tab PO DAILY [facility] Last Admin: 01/19/17 09:40 Dose: 1 tab Ondansetron HCl (Zofran Injection) 4 mg IVPB Q6H PRN PRN Reason: NAUSEA AND/OR VOMITING Last Admin: 01/15/17 21:21 Dose: 4 mg Oxycodone HCl (Roxicodone -) 5 mg PO Q6H PRN PRN Reason: PAIN Pantoprazole Sodium (Protonix -) 40 mg PO DAILY [facility] Last Admin: 01/19/17 09:40 Dose: 40 mg - Objective Vital Signs: Vital Signs Temperature 96.8 F L 01/19/17 07:32 Pulse Rate 74 01/19/17 07:32 Respiratory Rate 20 01/19/17 07:42 Blood Pressure 127/70 01/19/17 07:32 O2 Sat by Pulse Oximetry (%) 97 01/19/17 07:42 Labs: CBC, BMP 01/19/17 05:38 01/18/17 05:35 INR, PTT INR 1.04 (0.82-1.09) 01/07/17 21:30 Assessment/Plan Surgery; Tolerating oral feeding. [place] [address], Afebrile, Can be discharged home, with antibiotics.
--- NOTE | 2017-01-19 11:27 | DS ---
Physical Examination Vital Signs: Vital Signs Temperature 96.8 F L 01/19/17 07:32 Pulse Rate 74 01/19/17 07:32 Respiratory Rate 20 01/19/17 07:42 Blood Pressure 127/70 01/19/17 07:32 O2 Sat by Pulse Oximetry (%) 97 01/19/17 07:42 Constitutional: Yes: No Distress, Calm Cardiovascular: Yes: Regular Rate and Rhythm Respiratory: Yes: CTA Bilaterally Gastrointestinal: Yes: Normal Bowel Sounds, Soft, Other (ventral wound+, decreased drainage). No: Tenderness Edema: No Labs: CBC, BMP 01/19/17 05:38 01/18/17 05:35 Discharge Summary Reason For Visit: TUMOR APPENDIX,ANEMIA Current Active Problems New onset a-fib (Acute) Pneumoperitoneum (Acute) Rapid atrial fibrillation (Acute) S/P left hemicolectomy (Acute) Severe anxiety with panic (Acute) Hospital Course: Underwent hemicolectomy for appendix tumor Post op foiund to be in rapid Afib-- seen by Cardiology Rate controlled by Metoprolol Was on Heparin infusion but stopped as pt became very anemic and needed blood transfusion. Pt is now sinus No AC needed per Cardiology tolerating diet alos had wound infection -- seen by ID -- wound cultures grew staph coag negative , completed antibiotics Pt afebrile decreased drainage from wound pt clinically better stable for dc home pathology negative for malignancy Time spent 35min in preparation for discharge Condition: Improved - Instructions Diet, Activity, Other Instructions: May shower daily , including cleaning and washing the abdominal wound. Continue oral antibiotics. Will follow in the office. Follow up with Dr. Harmon as an out-patient. Disposition: VNS/HOME HEALTH CARE - Home Medications Comprehensive Discharge Medication List: Ambulatory Orders Amlodipine Besylate/Benazepril [Lotrel 10-20 mg Capsule] 1 cap PO DAILY Docusate Sodium [Colace -] 100 mg PO Q8H PRN #60 tab 12/10/16
[2017-01-19 11:37] VITALS: PULSE 75
--- NOTE | 2017-01-19 13:57 | PN ---
Progress Note, Physician Chief Complaint: Pt A&Ox3; no chest pain; + dyspnea on mild exertion. History of Present Illness: The patient is a 66-year-old black man, accompanied by , with a significant past medical history of hypertension and bladder Ca, who presents to the emergency department via EMS for further evaluation of hematuria. He underwent a cystoscopy in May- no chemotherapy/radiation since. He admits that he has been experiencing intermittent episodes of hematuria since August. His episodes are described as noted light pink urine without clots. However, over the past 3 weeks, he notes that his hematuria has worsen as it has become heavier,with noted dark urine and clots. He also notes that his symptoms are associated with headaches and lightheadedness and chills. He also notes that his lightheadedness is exacerbated on exertion (when walking). He denies fever, cough, shortness of breath , chest pain, palpitations, neck pain, leg pain, abdominal pain, nausea, vomiting, diarrhea, dysuria, flank pain, urinary hesitancy, urgency, frequency, penile discharge, testicular pain. He has a surgery scheduled for 12/04/[address] Harmon for tumor removal of his appendix and small bowel - patient refused. Allergies: No Known Drug Allergies Past Surgical History: Cystoscopy- 05/31. 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 Social History: No tobacco, ETOH and recreational drug use. Primary Care Physician: Dr. Mehdi Alonso [phone] Rejector: Dr. Roberto Patel [phone] - Current Medication List Current Medications: Active Medications Acetaminophen (Tylenol -) 325 mg PO Q6H PRN PRN Reason: PAIN Amoxicillin/Clavulanate Potassium (Augmentin - 875mg Tablet) 1 tab PO BID@0800, 1730 [facility] Last Admin: 01/19/17 07:41 Dose: 1 tab Linezolid (Zyvox (Restricted To Id) -) 600 mg PO BID [facility] Last Admin: 01/19/17 09:40 Dose: 600 mg Metoprolol Tartrate (Lopressor -) 25 mg PO BID [facility] Last Admin: 01/19/17 09:40 Dose: 25 mg Multivitamins/Minerals/Vitamin C (Tab-A-Vit -) 1 tab PO DAILY [facility] Last Admin: 01/19/17 09:40 Dose: 1 tab Ondansetron HCl (Zofran Injection) 4 mg IVPB Q6H PRN PRN Reason: NAUSEA AND/OR VOMITING Last Admin: 01/15/17 21:21 Dose: 4 mg Pantoprazole Sodium (Protonix -) 40 mg PO DAILY [facility] Last Admin: 01/19/17 09:40 Dose: 40 mg - Objective Vital Signs: Vital Signs Temperature 96.8 F L 01/19/17 07:32 Pulse Rate 75 01/19/17 10:20 Respiratory Rate 20 01/19/17 07:42 Blood Pressure 127/70 01/19/17 07:32 O2 Sat by Pulse Oximetry (%) 98 01/19/17 10:20 Constitutional: Yes: Calm Eyes: Yes: WNL Labs: CBC, BMP 01/19/17 05:38 01/18/17 05:35 INR, PTT INR 1.04 (0.82-1.09) 01/07/17 21:30 Problem List - Problems (1) Rapid atrial fibrillation Assessment/Plan: Remains in sinus rhythm occasional APCs on telemetry. Continue PO metoprolol (may change to succinate for once daily dosing) for HR control, catecholamine supression; BP better-controlled. ECHO: normal LVEF; mild LAE; moderate AR. Keep K+ 4-4.5, Mg 2-2.3, PO4 >2.5 Lipids well-controlled. Pain management. Physical rehagilitation. F/u with cardiology as outpatient (sees Dr. Salgado). Code(s): I48.91 - UNSPECIFIED ATRIAL FIBRILLATION (2) Anemia Assessment/Plan: s/p PRBCs post-surgery. Code(s): D64.9 - ANEMIA, UNSPECIFIED (3) Bladder cancer Code(s): C67.9 - MALIGNANT NEOPLASM OF BLADDER, UNSPECIFIED Qualifiers: Qualified Code(s): C67.8 - Malignant neoplasm of overlapping sites of bladder (4) HTN (hypertension) Assessment/Plan: on metoprolol (HTN; AF). Pain management. BP better-controlled. Physical therapy. 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 Pain management. Code(s): K66.8 - OTHER SPECIFIED DISORDERS OF PERITONEUM (9) S/P left hemicolectomy Assessment/Plan: f/u with surgeon. Code(s): Z90.49 - ACQUIRED ABSENCE OF OTHER SPECIFIED PARTS OF DIGESTIVE TRACT
== END 2017-01-19 15:16 | disposition home health service (06) | DRG 330 ==
LOC: J7W 18:10 → UNDOADMIN 18:10 → J4W 01-11 17:00 → JICU 01-12 10:28 → J4W 01-13 15:40
PROVIDERS: ADMIT Internal Medicine; ATTEND Internal Medicine
PROC: 0DTF0ZZ Resection of Right Large Intestine, Open Approach (ICD-10-PCS; principal; 2017-01-08 10:30)
PROC: 30233N1 Transfusion of Nonautologous Red Blood Cells into Peripheral Vein, Percutaneous Approach (ICD-10-PCS; 2017-01-12)
DX: D49.0 Neoplasm of unspecified behavior of digestive system (principal); D62 Acute posthemorrhagic anemia; K91.3 Postprocedural intestinal obstruction; T81.4XXA Infection following a procedure, initial encounter; Z53.31 Laparoscopic surgical procedure converted to open procedure; I10 Essential (primary) hypertension; I48.91 Unspecified atrial fibrillation; D72.829 Elevated white blood cell count, unspecified; N40.0 Benign prostatic hyperplasia without lower urinary tract symptoms; Z85.51 Personal history of malignant neoplasm of bladder; R31.0 Gross hematuria; Y83.2 Surgical operation with anastomosis, bypass or graft as the cause of abnormal reaction of the patient, or of later complication, without mention of misadventure at the time of the procedure; F41.0 Panic disorder [episodic paroxysmal anxiety]; R91.8 Other nonspecific abnormal finding of lung field; E87.6 Hypokalemia; K66.8 Other specified disorders of peritoneum; B95.7 Other staphylococcus as the cause of diseases classified elsewhere; D36.7 Benign neoplasm of other specified sites
CPT/HCPCS: 36415; 36430; 36511; 36600; 71010-TC; 71275-TC; 74000-TC; 74020-TC; 74176-TC; 74177-TC; 80048; 80053; 80061; 81003; 81015; 82550; 82803; 83036; 83605; 83721; 83735; 84100; 84439; 84443; 84481; 84484; 85025; 85027; 85610; 85730; 86850; 86900; 86901; 86922; 87040; 87070; 87077; 87086; 87186; 87205; 88304-TC; 88307-TC; 88329; 93005; 93010; 93306-TC; 93970-TC; 94760; 97116-GP; 97162-PG; J1644; P9038; P9058; Q9967

== ENCOUNTER 2017-08-27 11:28 | Day surgery (SDC) | payer OTHER ==
[2017-08-19 12:54] VITALS: BMI 27.6
--- NOTE | 2017-08-27 07:52 | HP ---
History & Physical Update - History History: No Change - Physical Physical: No Change - Assessment Assessment: No Change - Plan Plan: No Change
[~2017-08-27 11:28] MED LIST: ACETAMINOPHEN 1000 MG/100 ML VIAL (NON FORMULARY) IVPB ONE; DEXTROSE 5%-0.45% SALINE 1,000 ML IV SCH; IBUPROFEN 800 MG/8 ML IJ IVPB SCH
[2017-08-27] MEDS ORDERED: mitoMYcin 40 MG/50 ML DISP.SYRIN (FOR OR USE) IC ONE (12:30)
[2017-08-27] MEDS ORDERED: LIDOCAINE HCL/PF 2% SDV 5ML VIAL ONE (15:17)
[2017-08-27] MEDS ORDERED: PROPOFOL 20 ML ONE ×2 (15:18)
[2017-08-27] MEDS ORDERED: SUCCINYLCHOLINE CHLORIDE 200 MG/10 ML VIAL ONE ×2 (15:18→15:34)
[2017-08-27] MEDS ORDERED: ceFAZolin SODIUM 1 GM VIAL IVPB ONE (15:35)
[2017-08-27] MEDS ORDERED: MIDAZOLAM HCL 2 MG/2 ML SINGLE DOSE VIAL ONE (15:42)
[2017-08-27] MEDS ORDERED: ONDANSETRON 4 MG/2 ML VIAL IVPUSH PRN (16:36)
[2017-08-27] MEDS ORDERED: oxyCODONE HCL 5 MG TABLET PO PRN (16:36)
[2017-08-27] MEDS ORDERED: PROMETHAZINE HCL 25 MG/1 ML VIAL IVPUSH PRN (16:36)
[2017-08-27] MEDS ORDERED: ELECTROLYTE-148 SOLN 1,000 ML IV SCH (16:45)
[2017-08-27] MEDS ORDERED: ACETAMINOPHEN INJECTION 100 ML IVPB ONE (17:07)
[2017-08-27] MEDS ORDERED: IBUPROFEN 800 MG/8 ML IJ IVPB ONE (17:17)
[2017-08-27 18:11] VITALS: PULSE 82
[2017-08-27 18:32] VITALS: TEMP 98.8
[2017-08-27 19:06] VITALS: BP 138/74
--- NOTE | 2017-08-28 10:37 | OP ---
DATE OF OPERATION: 08/27/2017 SURGEON: Kp Burks MD PREOPERATIVE DIAGNOSIS: Bladder cancer. POSTOPERATIVE DIAGNOSIS: Bladder cancer. PROCEDURE: Cystoscopy; transurethral resection of bladder tumor, large; and instillation of Mitomycin. ANESTHESIA: General, Kev Mike MD. FINDING: Papillary bladder tumors of a very large area of the bladder including the bladder neck, bladder roger, trigone, and dome. SPECIMEN: Bladder tumors. DRAINS: A 20-Indonesian Mendez. ESTIMATED BLOOD LOSS: 25 mL PREOPERATIVE INDICATIONS: The patient is a 67-year-old male with a history of recurrent superficial bladder cancer. He comes in complaining of gross hematuria to the office. He is scheduled for a TURBT. He has had a history of noninvasive superficial bladder cancer in the past. DESCRIPTION OF OPERATION: The patient is brought to the OR, placed on the table in supine position, given general anesthesia, and placed in the modified lithotomy position. The groin was prepped and draped sterilely. Timeout was performed. Cystoscopy was performed. The urethra appeared to be normal. The prostate had some hypertrophy. Examination of the bladder reveals papillary tumors throughout the bladder, the bladder neck, the trigone, lateral roger, and the dome. It was over a very wide area of the bladder. The tumors were resected with the loop, using the bipolar generator. The UOs were visualized and free of tumor. Some deep biopsies were taken as well as some superficial swipes on the tumors as well. Tumor was cleared at the end of the procedure. Tumors were sent for pathological diagnosis. No evidence of perforation was seen. A 20-Indonesian Mendez catheter was placed and 40 mg of Mitomycin was instilled per the Mendez and Mendez was clamped. Patient was then woken up. KP BURKS M.D. [id number]
--- NOTE | 2017-08-31 13:25 | PATH ---
Surgical Pathology Report Patient Name: RED CARMICHAEL [facility]. Rec. #: [id number] /Age/Gender: 1950 (Age: 67) / M Account: [id number] Location: [facility] SURGICAL Taken: 08/27/2017 Received: 08/30/2017 Reported: 08/31/2017 Physicians: Kp Burks M.D. 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 MUSCULARIS PROPRIA PRESENT. FLAT CARCINOMA IN SITU (CIS) IS NOT IDENTIFIED. Comment: Office of Dr. Burks informed that significant findings will be faxed ( [employer]). Prior materials are noted. Electronically Signed Arlene Zuniga M.D. Gross Description Received in formalin labeled "bladder tumor," is a 5.3 x 4.3 x 0.6 cm aggregate of odell soft tissue fragments. The formalin is filtered and the specimen is entirely submitted in 6 cassettes. /08/30/2017 saudi08/30/2017
== END 2017-08-27 19:06 | disposition home or self-care (01) ==
LOC: JASU-SURG 11:28
PROVIDERS: ATTEND Urology
PROC: 0TBB8ZX Excision of Bladder, Via Natural or Artificial Opening Endoscopic, Diagnostic (ICD-10-PCS; 2017-08-27)
PROC: 0T5B8ZZ Destruction of Bladder, Via Natural or Artificial Opening Endoscopic (ICD-10-PCS; principal; 2017-08-27 15:00)
DX: C67.9 Malignant neoplasm of bladder, unspecified (principal)
CPT/HCPCS: 51720; 52240; J9280; 88305-TC; 94760

== ENCOUNTER 2019-01-10 10:46 | Day surgery (SDC) | payer OTHER ==
[2019-01-06 09:53] VITALS: BMI 27.0
[~2019-01-10 10:46] MED LIST changes: -ACETAMINOPHEN 1000 MG/100 ML VIAL (NON FORMULARY) IVPB ONE; -DEXTROSE 5%-0.45% SALINE 1,000 ML IV SCH; -IBUPROFEN 800 MG/8 ML IJ IVPB SCH; +LACTATED RINGERS SOLUTION 1,000 ML IV SCH; +ONDANSETRON 4 MG/2 ML VIAL IVPUSH PRN; +oxyCODONE HCL 5 MG TABLET PO PRN
[2019-01-10] MEDS ORDERED: PROPOFOL 20 ML ONE ×3 (13:09)
[2019-01-10] MEDS ORDERED: DEXAMETHASONE SOD PHOSPHATE 4 MG/1 ML VIAL ONE (13:10)
[2019-01-10] MEDS ORDERED: LIDOCAINE HCL/PF 2% SDV 5ML VIAL ONE (13:10)
[2019-01-10] MEDS ORDERED: ACETAMINOPHEN 1000 MG/100 ML VIAL (NON FORMULARY) IVPB ONE (13:12)
[2019-01-10] MEDS ORDERED: DEXTROSE 5%-0.45% SALINE 1,000 ML IV SCH (13:15)
[2019-01-10] MEDS ORDERED: mitoMYcin 40 MG/50 ML DISP.SYRIN (FOR OR USE) IC ONE (13:15)
[2019-01-10] MEDS ORDERED: DESFLURANE GAS 240 ML BOTTLE IH ONE (13:18)
[2019-01-10] MEDS ORDERED: ceFAZolin SODIUM 1 GM VIAL IVPB ONE (13:39)
[2019-01-10] MEDS ORDERED: METOPROLOL TARTRATE 5 MG/5 ML VIAL IVPUSH ONE (14:35)
[2019-01-10] MEDS ORDERED: ACETAMINOPHEN INJECTION 100 ML IVPB ONE (16:23)
[2019-01-10 17:17] VITALS: TEMP 97.7
[2019-01-10 18:25] VITALS: BP 146/81; PULSE 83
--- NOTE | 2019-01-13 08:19 | OP ---
DATE OF OPERATION: 01/10/2019 PREOPERATIVE DIAGNOSIS: Bladder cancer, multiple sites. POSTOPERATIVE DIAGNOSIS: Bladder cancer, multiple sites. PROCEDURE: Cystoscopy, transurethral resection of the bladder tumor, large, and instillation of mitomycin. SURGEON: Kp Burks MD SPECIMENS: Bladder tumor. FINDING: Multiple large bladder tumors greater than 6 cm in size throughout the bladder. DRAINS: Mendez catheter. PREOPERATIVE INDICATIONS: The patient has a history of C1 bladder cancer. He has high gross hematuria since his last cystoscopy and returns for cystoscopy, TURBT , and instillation of mitomycin. THE OPERATION: The patient was brought to the OR, placed on the table in the supine position, given general anesthesia and IV antibiotics and placed in the modified lithotomy position. The groin was prepped and draped sterilely. Cystoscopy was performed. The distal urethra appeared to be normal. The prostate itself was slightly enlarged. The bladder was examined. Multiple large papillary tumors were seen throughout the bladder. In total, there was over 6 cm of tumor. They were on the right lateral wall over the trigone at the left bladder neck and at the _12 oclock____ position along the bladder neck. Using the resectoscope bipolar unit, the tumors were all resected down to their bases, and the bases were fulgurated. No evidence of perforation was noted. The pieces were sent off for pathological diagnosis. A 16-Burkinan Mendez catheter was left in place, and 50 mL 40 mg of mitomycin were injected into the bladder, and the Mendez was clamped. Patient was woken up. Tri [id number] [id number]
--- NOTE | 2019-01-13 16:00 | PATH ---
Surgical Pathology Report Patient Name: RED CARMICHAEL [facility]. Rec. #: [id number] /Age/Gender: 1950 (Age: 68) / M Account: [id number] Location: [facility] SUR[facility]ICAL Taken: 01/10/2019 Received: 01/11/2019 Reported: 01/13/2019 Physicians: Kp Burks M.D. Specimen(s) Received BLADDER TUMOR Clinical History Bladder tumor Final Diagnosis BLADDER TUMOR, TRANSURETHRAL RESECTION OF BLADDER TUMOR: HIGH GRADE PAPILLARY UROTHELIAL CARCINOMA. NO DEFINITIVE LAMINA PROPRIA INVASION IDENTIFIED. MUSCULARIS PROPRIA IDENTIFIED. NO FLAT CARCINOMA IN SITU (CIS) IDENTIFIED. Comment: Prior materials are noted. Office of Dr. Burks informed that significant findings will be faxed ([place]). Electronically Signed Arlene Zuniga M.D. Gross Description Received in formalin labeled "bladder tumor," is a 5.8 x 4.6 x 0.6 cm aggregate of odell-pink, friable soft tissue fragments. The formalin is filtered and the specimen is entirely submitted in 6 cassettes. /01/11/2019 saudi/01/11/2019
== END 2019-01-10 18:25 | disposition home or self-care (01) ==
LOC: JASU-SURG 10:46
PROVIDERS: ATTEND Urology
PROC: 0T5B8ZZ Destruction of Bladder, Via Natural or Artificial Opening Endoscopic (ICD-10-PCS; principal; 2019-01-10 12:30)
DX: C67.8 Malignant neoplasm of overlapping sites of bladder (principal); I10 Essential (primary) hypertension; E11.9 Type 2 diabetes mellitus without complications
CPT/HCPCS: 51720; 52240; J9280; 82962; 88305-TC; 94760; J0131

== ENCOUNTER 2019-01-11 19:43 | Emergency (ER) | payer OTHER | END 2019-01-11 23:00 | disposition left against medical advice (07) | LOC: JER 23:00 ==

== ENCOUNTER 2020-08-30 22:16 | Inpatient (IN) | payer OTHER ==
[2020-08-30 22:30] VITALS: BMI 27.7
[2020-08-31 00:02] LABS: BASO % 0.7 % (0-2.0); EOS % 0.2 % (0-4.5); HEMATOCRIT 23.5 % (35.4-49); HEMOGLOBIN 7.6 GM/dL (11.7-16.9); LYMPH % 16.3 % (8-40); MCHC 32.3 g/dl (32.0-35.9); MEAN CELL VOLUME 74.4 fl (80-96); MEAN PLT VOLUME 7.1 fl (7.5-11.1); MONO % 10.4 % (3.8-10.2); NEUT % 72.4 % (42.8-82.8); PLATELET COUNT 445 K/MM3 (134-434); RBC 3.16 M/mm3 (4.00-5.60); RDW 24.4 % (11.9-15.9); WHITE BLOOD COUNT 10.2 K/mm3 (4.0-10.0)
[2020-08-31 00:19] LABS: CHLORIDE 103 mmol/L (98-107); SODIUM 131 mmol/L (136-145)
[2020-08-31 00:23] LABS: CALCIUM 8.7 mg/dL (8.5-10.1)
[2020-08-31 00:24] LABS: ALBUMIN 2.8 g/dl (3.4-5.0); BLOOD UREA NITROGEN 21.4 mg/dL (7-18); CO2 24 mmol/L (21-32); GLUCOSE,RANDOM 97 mg/dL (74-106)
[2020-08-31 00:25] LABS: INR 1.02 (0.83-1.09); PROTHROMBIN TIME (PATIENT) 12.3 SEC (9.7-13.0)
[2020-08-31 00:26] LABS: CREATININE 1.5 mg/dL (0.55-1.3)
[2020-08-31 00:27] LABS: SGOT/AST 120 U/L (15-37)
[2020-08-31 00:28] LABS: ACTIVATED PTT 30.8 SECONDS (25.2-36.5); BILIRUBIN,TOTAL 0.7 mg/dL (0.2-1); LDH 857 U/L (87-246); TOT PROT 7.9 g/dl (6.4-8.2)
[2020-08-31 00:29] LABS: ALK PHOS 62 U/L (45-117)
[2020-08-31] MEDS ORDERED: ACETAMINOPHEN 325 MG TABLET (FP) PO ONE (01:29)
[2020-08-31] MEDS ORDERED: DEXAMETHASONE SOD PHOSPHATE 4 MG/1 ML VIAL IVPUSH ONE (01:34)
[2020-08-31] MEDS ORDERED: DEXAMETHASONE SOD PHOSPHATE 10 MG/1 ML VIAL ONE ×2 (01:37→09:27)
[2020-08-31] MEDS ORDERED: ACETAMINOPHEN 325 MG TABLET (FP) ONE ×2 (01:37→15:52)
[2020-08-31] MEDS ORDERED: ALBUTEROL SO4 HFA INHALER IH PRN (02:36)
[2020-08-31 03:51] LABS: ANION GAP 4 MMOL/L (8-16); SGPT/ALT 57 U/L (13-61)
[2020-08-31 03:53] LABS: POTASSIUM 8.8 mmol/L (3.5-5.1)
[2020-08-31] MEDS ORDERED: CEFTRIAXONE 1 GM in DEXTROSE 5%-WATER - 50 ML IVPB ONE (04:20)
[2020-08-31] MEDS ORDERED: AZITHROMYCIN IVPB 500 MG/250 ML BAG IVPB ONE ×3 (04:21→09:28)
[2020-08-31] MEDS ORDERED: cefTRIAXone SODIUM 1 GM VIAL ONE (05:31)
[2020-08-31 05:46] LABS: ANISOCYTOSIS 3+; MACROCYTOSIS 0; PLATELET ESTIMATE NORMAL; TEAR DROP CELLS 1+
[2020-08-31 08:01] LABS: BASO % 0.3 % (0-2.0); EOS % 0.1 % (0-4.5); HEMATOCRIT 22.2 % (35.4-49); HEMOGLOBIN 7.3 GM/dL (11.7-16.9); LYMPH % 18.6 % (8-40); MCH 24.4 pg (25.7-33.7); MCHC 32.9 g/dl (32.0-35.9); MEAN CELL VOLUME 74.2 fl (80-96); MEAN PLT VOLUME 7.6 fl (7.5-11.1); MONO % 13.1 % (3.8-10.2); NEUT % 67.9 % (42.8-82.8); PLATELET COUNT 407 K/MM3 (134-434); RBC 2.99 M/mm3 (4.00-5.60); RDW 24.8 % (11.9-15.9)
[2020-08-31 08:19] LABS: POTASSIUM 4.4 mmol/L (3.5-5.1)
[2020-08-31 08:27] LABS: CALCIUM 8.5 mg/dL (8.5-10.1)
[2020-08-31 08:28] LABS: ALBUMIN 2.8 g/dl (3.4-5.0); BLOOD UREA NITROGEN 20.4 mg/dL (7-18)
[2020-08-31 08:30] LABS: CREATININE 1.3 mg/dL (0.55-1.3)
[2020-08-31 08:31] LABS: BILIRUBIN,TOTAL 0.3 mg/dL (0.2-1)
[2020-08-31 08:33] LABS: TOT PROT 6.9 g/dl (6.4-8.2)
[2020-08-31 09:20] LABS: MAGNESIUM 2.3 mg/dL (1.8-2.4)
[2020-08-31 09:25] LABS: MAGNESIUM 1.9 mg/dL (1.8-2.4)
[2020-08-31] MEDS ORDERED: ASCORBIC ACID 500 MG TABLET (FP) ONE ×2 (09:26→20:59)
[2020-08-31] MEDS ORDERED: CEFTRIAXONE 1 GM/50 ML BAG ONE (09:27)
[2020-08-31] MEDS ORDERED: CHOLECALCIFEROL (VIT D3) 1,000 UNIT (25 MCG) TABLET ONE (09:27)
[2020-08-31] MEDS ORDERED: ZINC SULFATE 220 MG CAPSULE (FP) ONE (09:27)
[2020-08-31] MEDS: CHOLECALCIFEROL (VIT D3) 1,000 UNIT (25 MCG) TABLET PO SCH (10:25)
[2020-08-31] MEDS: ASCORBIC ACID 500 MG TABLET (FP) PO SCH ×2 (10:30→21:14)
[2020-08-31] MEDS: ZINC SULFATE 220 MG CAPSULE (FP) PO SCH (10:30)
[2020-09-01 09:04] LABS: BASO % 0.1 % (0-2.0); HEMATOCRIT 23.2 % (35.4-49); HEMOGLOBIN 7.8 GM/dL (11.7-16.9); LYMPH % 15.1 % (8-40); MCH 24.8 pg (25.7-33.7); MCHC 33.8 g/dl (32.0-35.9); MEAN CELL VOLUME 73.3 fl (80-96); MEAN PLT VOLUME 7.2 fl (7.5-11.1); MONO % 13.4 % (3.8-10.2); NEUT % 71.4 % (42.8-82.8); PLATELET COUNT 452 K/MM3 (134-434); RBC 3.16 M/mm3 (4.00-5.60); RDW 24.2 % (11.9-15.9); WHITE BLOOD COUNT 6.7 K/mm3 (4.0-10.0)
[2020-09-01 09:22] LABS: POTASSIUM 4.8 mmol/L (3.5-5.1)
[2020-09-01 09:28] LABS: ALBUMIN 2.9 g/dl (3.4-5.0); BLOOD UREA NITROGEN 30.2 mg/dL (7-18)
[2020-09-01 09:29] LABS: CREATININE 1.2 mg/dL (0.55-1.3)
[2020-09-01 09:31] LABS: BILIRUBIN,TOTAL 0.3 mg/dL (0.2-1); TOT PROT 7.5 g/dl (6.4-8.2)
[2020-09-01] MEDS: CHOLECALCIFEROL (VIT D3) 1,000 UNIT (25 MCG) TABLET PO SCH (12:34)
[2020-09-01] MEDS: AZITHROMYCIN IVPB 500 MG/250 ML BAG IVPB SCH (12:34)
[2020-09-01] MEDS: ZINC SULFATE 220 MG CAPSULE (FP) PO SCH (12:34)
[2020-09-01] MEDS: ASCORBIC ACID 500 MG TABLET (FP) PO SCH ×2 (12:34→21:42)
[2020-09-01] MEDS: DEXAMETHASONE SOD PHOSPHATE 4 MG/1 ML VIAL IVPUSH SCH (12:34)
[2020-09-01] MEDS: CEFTRIAXONE 1 GM in DEXTROSE 5%-WATER - 50 ML IVPB SCH (13:06)
[2020-09-01 22:18] LABS: EPI CELLS 3 /uL (0-25.1); HYALINE CASTS 8 /uL (0-3.1); PH,URINE 5.5 (5.0-8.0); URINE APPEARANCE CLOUDY; URINE BILIRUBIN NEGATIVE (NEGATIVE); URINE COLOR ORANGE; URINE GLUCOSE (UA) 3+ (NEGATIVE); URINE KETONE NEGATIVE (NEGATIVE); URINE LEUK ESTERASE 2+ (NEGATIVE); URINE NITRITE POSITIVE (NEGATIVE); URINE PROTEIN 2+ (NEGATIVE); URINE RBC 6276 /uL (0-23.9); URINE UROBILINOGEN 0.2 mg/dL (0.2-1.0); URINE WBC 289 /uL (0-25.8)
[2020-09-02 00:27] LABS: URINE BACTERIA 220.7 /uL (0-1359)
[2020-09-02] MEDS: DEXAMETHASONE SOD PHOSPHATE 4 MG/1 ML VIAL IVPUSH SCH (09:23)
[2020-09-02] MEDS: CEFTRIAXONE 1 GM in DEXTROSE 5%-WATER - 50 ML IVPB SCH (09:23)
[2020-09-02] MEDS: ASCORBIC ACID 500 MG TABLET (FP) PO SCH ×2 (09:24→21:21)
[2020-09-02] MEDS: ZINC SULFATE 220 MG CAPSULE (FP) PO SCH (09:24)
[2020-09-02] MEDS: CHOLECALCIFEROL (VIT D3) 1,000 UNIT (25 MCG) TABLET PO SCH (09:24)
[2020-09-02] MEDS: AZITHROMYCIN IVPB 500 MG/250 ML BAG IVPB SCH (10:11)
[2020-09-03 08:26] LABS: BASO % 0.1 % (0-2.0); HEMATOCRIT 24.5 % (35.4-49); LYMPH % 15.7 % (8-40); MCH 24.1 pg (25.7-33.7); MCHC 32.8 g/dl (32.0-35.9); MEAN CELL VOLUME 73.4 fl (80-96); MONO % 13.9 % (3.8-10.2); NEUT % 70.3 % (42.8-82.8); PLATELET COUNT 464 K/MM3 (134-434); RBC 3.34 M/mm3 (4.00-5.60); RDW 24.4 % (11.9-15.9); WHITE BLOOD COUNT 9.1 K/mm3 (4.0-10.0)
[2020-09-03 08:45] LABS: POTASSIUM 4.6 mmol/L (3.5-5.1)
[2020-09-03 08:47] LABS: ALBUMIN 3.2 g/dl (3.4-5.0); CALCIUM 9.4 mg/dL (8.5-10.1)
[2020-09-03 08:48] LABS: BLOOD UREA NITROGEN 30.4 mg/dL (7-18)
[2020-09-03 08:51] LABS: CREATININE 1.1 mg/dL (0.55-1.3)
[2020-09-03 08:52] LABS: BILIRUBIN,TOTAL 0.3 mg/dL (0.2-1); TOT PROT 7.5 g/dl (6.4-8.2)
[2020-09-03] MEDS: ASCORBIC ACID 500 MG TABLET (FP) PO SCH ×2 (11:04→21:35)
[2020-09-03] MEDS: ZINC SULFATE 220 MG CAPSULE (FP) PO SCH (11:04)
[2020-09-03] MEDS: DEXAMETHASONE SOD PHOSPHATE 4 MG/1 ML VIAL IVPUSH SCH (11:04)
[2020-09-03] MEDS: AZITHROMYCIN IVPB 500 MG/250 ML BAG IVPB SCH (11:04)
[2020-09-03] MEDS: CEFTRIAXONE 1 GM in DEXTROSE 5%-WATER - 50 ML IVPB SCH (11:05)
[2020-09-03] MEDS: CHOLECALCIFEROL (VIT D3) 1,000 UNIT (25 MCG) TABLET PO SCH (11:05)
[2020-09-03 11:36] LABS: ANISOCYTOSIS 1+; MACROCYTOSIS 0; PLATELET ESTIMATE NORMAL
[2020-09-03] MEDS ORDERED: REMDESIVIR 200 MG in SODIUM CHLORIDE 210 ML IVPB ONE (14:00)
[2020-09-03] MEDS: ACETAMINOPHEN 325 MG TABLET (FP) PO PRN (23:44)
[2020-09-04] MEDS: ZINC SULFATE 220 MG CAPSULE (FP) PO SCH (09:26)
[2020-09-04] MEDS: CHOLECALCIFEROL (VIT D3) 1,000 UNIT (25 MCG) TABLET PO SCH (09:26)
[2020-09-04] MEDS: ASCORBIC ACID 500 MG TABLET (FP) PO SCH ×2 (09:26→21:58)
[2020-09-04] MEDS: DEXAMETHASONE SOD PHOSPHATE 4 MG/1 ML VIAL IVPUSH SCH (09:26)
[2020-09-04] MEDS: CEFTRIAXONE 1 GM in DEXTROSE 5%-WATER - 50 ML IVPB SCH (09:27)
[2020-09-04] MEDS: AZITHROMYCIN IVPB 500 MG/250 ML BAG IVPB SCH (09:27)
[2020-09-04] MEDS: AZITHROMYCIN 250 MG TABLET PO SCH (13:57)
[2020-09-04] MEDS: REMDESIVIR 100 MG in SODIUM CHLORIDE 230 ML IVPB SCH (14:16)
[2020-09-05 08:23] LABS: BASO % 0.1 % (0-2.0); HEMOGLOBIN 8.1 GM/dL (11.7-16.9); LYMPH % 18.5 % (8-40); MCH 23.6 pg (25.7-33.7); MCHC 32.4 g/dl (32.0-35.9); MEAN CELL VOLUME 72.9 fl (80-96); MEAN PLT VOLUME 6.9 fl (7.5-11.1); MONO % 12.2 % (3.8-10.2); NEUT % 69.2 % (42.8-82.8); PLATELET COUNT 546 K/MM3 (134-434); RBC 3.43 M/mm3 (4.00-5.60); RDW 24.6 % (11.9-15.9); WHITE BLOOD COUNT 11.5 K/mm3 (4.0-10.0)
[2020-09-05 08:35] LABS: POTASSIUM 4.6 mmol/L (3.5-5.1)
[2020-09-05 08:42] LABS: CALCIUM 9.8 mg/dL (8.5-10.1)
[2020-09-05 08:43] LABS: BLOOD UREA NITROGEN 32.2 mg/dL (7-18)
[2020-09-05 08:45] LABS: BILIRUBIN,TOTAL 0.4 mg/dL (0.2-1); TOT PROT 7.3 g/dl (6.4-8.2)
[2020-09-05] MEDS: ZINC SULFATE 220 MG CAPSULE (FP) PO SCH (09:22)
[2020-09-05] MEDS: AZITHROMYCIN 250 MG TABLET PO SCH (09:22)
[2020-09-05] MEDS: CHOLECALCIFEROL (VIT D3) 1,000 UNIT (25 MCG) TABLET PO SCH (09:22)
[2020-09-05] MEDS: ASCORBIC ACID 500 MG TABLET (FP) PO SCH ×2 (09:23→21:10)
[2020-09-05] MEDS: DEXAMETHASONE 4 MG TABLET (FP) PO SCH (09:23)
[2020-09-05] MEDS: REMDESIVIR 100 MG in SODIUM CHLORIDE 230 ML IVPB SCH (13:42)
[2020-09-06] MEDS: DEXAMETHASONE 4 MG TABLET (FP) PO SCH (09:53)
[2020-09-06] MEDS: ZINC SULFATE 220 MG CAPSULE (FP) PO SCH (09:53)
[2020-09-06] MEDS: CHOLECALCIFEROL (VIT D3) 1,000 UNIT (25 MCG) TABLET PO SCH (09:53)
[2020-09-06] MEDS: ASCORBIC ACID 500 MG TABLET (FP) PO SCH ×3 (09:53→21:58)
[2020-09-06] MEDS: AZITHROMYCIN 250 MG TABLET PO SCH (09:53)
[2020-09-06] MEDS: FAMOTIDINE 20 MG TABLET PO SCH (14:04)
[2020-09-06] MEDS: REMDESIVIR 100 MG in SODIUM CHLORIDE 230 ML IVPB SCH (14:13)
[2020-09-07] MEDS: FAMOTIDINE 20 MG TABLET PO SCH ×3 (08:11→21:29)
[2020-09-07] MEDS: ASCORBIC ACID 500 MG TABLET (FP) PO SCH ×2 (10:27→21:29)
[2020-09-07] MEDS: ZINC SULFATE 220 MG CAPSULE (FP) PO SCH (10:27)
[2020-09-07] MEDS: DEXAMETHASONE 4 MG TABLET (FP) PO SCH (10:27)
[2020-09-07] MEDS: CHOLECALCIFEROL (VIT D3) 1,000 UNIT (25 MCG) TABLET PO SCH (10:27)
[2020-09-07] MEDS: ACETAMINOPHEN 325 MG TABLET (FP) PO PRN (11:53)
[2020-09-07] MEDS: REMDESIVIR 100 MG in SODIUM CHLORIDE 230 ML IVPB SCH (14:34)
[2020-09-08] MEDS ORDERED: DEXAMETHASONE SOD PHOSPHATE 10 MG/1 ML VIAL ONE (08:48)
[2020-09-08] MEDS: CHOLECALCIFEROL (VIT D3) 1,000 UNIT (25 MCG) TABLET PO SCH (09:14)
[2020-09-08] MEDS: ZINC SULFATE 220 MG CAPSULE (FP) PO SCH (09:14)
[2020-09-08] MEDS: FAMOTIDINE 20 MG TABLET PO SCH ×2 (09:14→22:54)
[2020-09-08] MEDS: DEXAMETHASONE 4 MG TABLET (FP) PO SCH (09:14)
[2020-09-08] MEDS: ASCORBIC ACID 500 MG TABLET (FP) PO SCH ×2 (09:14→22:53)
[2020-09-08 13:01] VITALS: TEMP 98.2
[2020-09-09] MEDS: DEXAMETHASONE 4 MG TABLET (FP) PO SCH ×2 (10:22→10:37)
[2020-09-09] MEDS: CHOLECALCIFEROL (VIT D3) 1,000 UNIT (25 MCG) TABLET PO SCH (10:24)
[2020-09-09] MEDS: FAMOTIDINE 20 MG TABLET PO SCH (10:24)
[2020-09-09] MEDS: ZINC SULFATE 220 MG CAPSULE (FP) PO SCH (10:24)
[2020-09-09] MEDS: ASCORBIC ACID 500 MG TABLET (FP) PO SCH (10:24)
[2020-09-09] MEDS: ACETAMINOPHEN 325 MG TABLET (FP) PO PRN (11:56)
[2020-09-09 14:31] VITALS: BP 116/72; PULSE 88
== END 2020-09-09 15:48 | disposition home health service (06) | DRG 177 ==
LOC: JER 22:16 → JERBED 08-31 01:36 → J6WEST-2 08-31 22:59
PROVIDERS: ADMIT Internal Medicine; ATTEND Internal Medicine
PROC: XW033E5 Introduction of Remdesivir Anti-infective into Peripheral Vein, Percutaneous Approach, New Technology Group 5 (ICD-10-PCS; principal; 2020-09-04)
PROC: XW13325 Transfusion of Convalescent Plasma (Nonautologous) into Peripheral Vein, Percutaneous Approach, New Technology Group 5 (ICD-10-PCS; 2020-09-04)
DX: U07.1 COVID-19 (principal); J12.82 Pneumonia due to coronavirus disease 2019; J96.01 Acute respiratory failure with hypoxia; N39.0 Urinary tract infection, site not specified; D64.9 Anemia, unspecified; I10 Essential (primary) hypertension; Z85.038 Personal history of other malignant neoplasm of large intestine; N40.0 Benign prostatic hyperplasia without lower urinary tract symptoms; C67.8 Malignant neoplasm of overlapping sites of bladder; R53.1 Weakness
CPT/HCPCS: 36415; 36430; 71045-TC-FY; 80053; 81003; 82248; 82550; 82553; 82728; 83615; 83735; 84484; 85025; 85379; 85610; 85730; 86140; 86850; 86900; 86901; 87040; 87086; 87804; 93005; 93010; 94010; 94761; 99285-25; C9399; C9803; J1100; P9017; U0003